=== PATIENT | male | born 1985 | race Caucasian/White ===

== ENCOUNTER 2024-01-31 09:45 | Outpatient (REF) | payer OTHER, SELFPAY ==
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
--- OUTSIDE RECORDS SUMMARY | 2024-02-02 14:08 | XMS_ITS ---
Author Name [facility] [place] Organization [facility] [place] [facility] [place] Address [address] [place] [id number] Care Team Providers Care Liner Worker Name Role Phone ROSANNA SANTILLAN Primary Care [...] PRESCRIPT ION RX Apr 20, 2022 THPRX [id number] EVA VARGAS PATIENT [facility] Aguayo Apr 20, 2022 [id number] [phone] EVA VARGAS PATIENT Selected Encounter This section includes the information on record at [place] for the Encounter. Date/Time Encounter Type Encounter Description Reason Provider Source Apr 21, 2023 10:08 AM Outpatient Encounter TELEPHONE TRIAGE SUMI SHIELDS Encounter Template Text not used by VA Plan of Treatment: Future Appointments (+ 6 months) and Future Tests (+/- 45 days) The Plan of Treatment section includes future care activities for the patient from all VA treatmentfacilities. This section includes future appointments and future orders which are active, pending or scheduled. Future Appointments This section includes appointments that were scheduled to occur 6 months from the date of the Encounter, up to a maximum of 20 appointments. The data comes from all [facility]. Appointment Date/Time Appointment Type Appointme nt Facility Name May 07, 2023 09:30 AM AMBULATORY - MEDICINE [facility] Jun 01, 2023 02:30 PM AMBULATORY - PSYCHIATRY [facility] Jul 27, 2023 03:30 PM AMBULATORY - PSYCHIATRY [facility] Active, Pending, and Scheduled Orders This section includes a listing of several types of active, pending, and scheduled orders, including clinic medications orders, diagnostic test orders, procedure orders and consult orders; where the start date of the order is 45 days before the date of the Encounter or 45 days after the date of theEncounter. The data comes from all [facility]. Test Date/Time Test Type Test Details Facility Name May 07, 2023 12:00 AM Laboratory - Chemi stry Order BASIC METABOLIC PANEL (fasting) BLOOD (SST-SERUM) [facility] May 07, 2023 12:00 AM Laboratory - Chemi stry Order LIPID PANEL FASTING BLOOD (SST-SERUM) [facility] May 07, 2023 12:00 AM Laboratory - Chemi stry Order LIVER FUNCTION BLOOD (SST-SERUM) [facility] May 07, 2023 12:00 AM Laboratory - Chemi stry Order CBC AND DIFF (AUTO) BLOOD (LAV-BLOOD) [facility] May 07, 2023 12:00 AM Laboratory - Chemi stry Order HEMOGLOBIN A1C PANEL BLOOD (LAV-BLOOD) [facility] May 07, 2023 12:00 AM Laboratory - Chemi stry Order TSH BLOOD (SST-SERUM) [facility] Jun 01, 2023 12:00 AM Laboratory - Chemi stry Order DRUGS OF ABUSE URINE (DRUG) [facility] Encounter Notes: All associated encounter notes This section contains the clinical notes associated to the Encounter. Date/Time Encounter Note(s) Provider Source Apr 21, 2023 10:08 AM RN PROGRESS NOTE: LOCAL TITLE: CCC: CLINICAL TRIAGE STANDARD TITLE: RN PROGRESS NOTE DATE OF NOTE: APR 21, 2023@10:08:16 ENTRY DATE: APR 21, 2023@10:08:16 AUTHOR: SUMI SHIELDS COSIGNER: URGENCY: STATUS: COMPLETED Patient Demographics Patient Name: EVA VARGAS Patient Primary Address: [address] [place] [id number] Patient Primary Phone: [phone] Patient : 1985 Patient Age: 37 Caller/Recipient Relation to Patient: Self Emergency Contact: ERROL VARGAS Triage Summary Conducted triage/discussed symptoms Pain Score: 0 (No Pain) Utilized the Triage Tool: Yes Chief Complaint: Foreign Body In Eye System WHEN: Within 24 Hours Nurse's Recommendation / WHEN: Within 24 Hours System WHERE: Clinic Nurse's Recommendation / WHERE: Clinic/[facility] Patient Disposition Patient/Caregiver agrees to plan of care: Yes Patient WHERE: Appointment Patient WHEN: Within 24 hours Nursing Plan and Disposition Referred Patient for In-Person Appt Other course(s) of action Other Other Description: Warm transferred to eye clinic Generated msg to PACT/Provider Provided guidance for worsening symptoms: *Caller/Patient* advised to call facilities [place] Clinical Contact Center or seek immediate medical attention for new or worsening symptoms Nurse Summary Nurse Summary: Received call from . explains he has noticed over the past 6 months he has developed a foreign body form in his right eye. Describes the foreign body as what looks like ''a tiny clear plastic bead'' that is the size of a pin head. Explains he has had 2 form over the last 6 months and is usually able to pull his lower eye lid down to remove it. Over the past 4-5 days, he has 2 that are under his upper eye lid that he feels and states they are mildly irritating and he can't seem to get them out. Denies pain or itching. Denies vision changes, eye redness or drainage or any other sx. [place] usually sees a civilian eye doctor but [place] is requesting to see the eye clinic at the [place]. See ROS. Directed to seek care within 24 hours. [facility] precautions provided. Warm transferred to [place] eye clinic for assistance. Information forwarded to PACT for review and follow up. Clinical Contact Center Codes Clinic/Location: V1 CWM PHONE CCC RN TXCC Triage Complete Triage Note: Phone Triage 21 Apr 2023 14:48:38 +0000 [facility] Demographics 37 y/o Male Results CC: Foreign Body In Eye Software suggested: Within 24 Hours Software suggested follow-up location: Clinic, consider [facility] care Values and Measures Duration of CC: 5 Days Positive Responses HPI: foreign body sensation, eye Negative Responses Denies: HPI: anisocoria, traumatic mydriasis Denies: HPI: blurry vision, injured eye Denies: HPI: burn, eye Denies: HPI: diplopia Denies: HPI: discoloration of iris, hyphema Denies: HPI: exophthalmos Denies: HPI: eye bleeding Denies: HPI: eye chemical splash Denies: HPI: eye pain, moderate to severe Denies: HPI: eye pain, severe, in injured eye Denies: HPI: eye pain, worsening Denies: HPI: eyelid wound, skin penetration Denies: HPI: hyphema by history Denies: HPI: irregular pupil Denies: HPI: power tool injury Denies: HPI: vision loss, after the injury Denies: HPI: wound, bullet, pellet or BB Denies: HPI: wound, globe penetration /renita/ SUMI SHIELDS RN Signed: 04/21/2023 10:08 Receipt Acknowledged By: 04/22/2023 13:41 /renita/ BRIGIDA SORENSON RN REGISTERED NURSE 04/23/2023 09:02 /renita/ MITRA SHAH LPN, [facility]
--- OUTSIDE RECORDS SUMMARY | 2024-02-02 14:08 | XMS_ITS | Encounter Summary ---
Author Name [facility] [place] Organization [place] Address [address] [place] [id number] Care Team Providers Care Formal Waiter/Waitress Name Role Phone ROSANNA SANTILLAN Primary Care [...] PRESCRIPT ION RX Apr 20, 2022 THPRX [id number] EVA VARGAS PATIENT FAMILY HE[employer] PLAN KVNG BROWNLEE GAMA Aguayo Apr 20, 2022 [id number] EVA VARGAS PATIENT Selected Encounter This section includes the information on record at [place] for the Encounter. Date/Time Encounter Type Encounter Description Reason Provider Source Mar 30, 2023 02:30 PM OFFICE O/P EST LOW 20 MIN [facility] - IND ICD-10-CM F43.10 Post-traumatic stress disorder, unspecified MONROE ROYAL IHDede Encounter Template Text not used by [facility] Assessments - Encounter Diagnoses This section includes the primary and secondary diagnoses documented for the Encounter. Date/Time Primary/Secondary Diagnosis Diagnosis Name Provider Source Mar 30, 2023 02:57 PM PRIMARY Post-traumatic stress disorder, unspecified ROYALMONROE ANN [place] Plan of Treatment: Future Appointments (+ 6 months) and Future Tests (+/- 45 days) The Plan of Treatment section includes future care activities for the patient from all [place] [facility]. This section includes future appointments and future orders which are active, pending or scheduled. Future Appointments This section includes appointments that were scheduled to occur 6 months from the date of the Encounter, up to a maximum of 20 appointments. The data comes from all [facility] facilities. Appointment Date/Time Appointment Type Appointme nt Facility Name Apr 21, 2023 02:30 PM AMBULATORY [place]ICINE [place] C N[facility]L [facility] May 07, 2023 09:30 AM AMBULATORY - MEDICINE [facility] Jun 01, 2023 02:30 PM AMBULATORY - PSYCHIATRY [facility] Jul 27, 2023 03:30 PM AMBULATORY - PSYCHIATRY [facility] Active, Pending, and Scheduled Orders This section includes a listing of several types of active, pending, and scheduled orders, including clinic medications orders, diagnostic test orders, procedure orders and consult orders; where the start date of the order is 45 days before the date of the Encounter or 45 days after the date of theEncounter. The data comes from all [facility]. Test Date/Time Test Type Test Details Facility Name May 07, 2023 12:00 AM Laboratory - Chemi stry Order BASIC METABOLIC PANEL (fasting) BLOOD (SST-SERUM) [facility] May 07, 2023 12:00 AM Laboratory - Chemi stry Order LIPID PANEL FASTING BLOOD (SST-SERUM) [facility] May 07, 2023 12:00 AM Laboratory - Chemi stry Order LIVER FUNCTION BLOOD (SST-SERUM) [facility] May 07, 2023 12:00 AM Laboratory - Chemi stry Order CBC AND DIFF (AUTO) BLOOD (LAV-BLOOD) [facility] May 07, 2023 12:00 AM Laboratory - Chemi stry Order HEMOGLOBIN A1C PANEL BLOOD (LAV-BLOOD) [facility] May 07, 2023 12:00 AM Laboratory - Chemi stry Order TSH BLOOD (SST-SERUM) [facility] Social History: Smoking Status (Most current) and Tobacco Use (All prior to encounter date) This section includes the most current, and the historical, smoking and tobacco- related health factors from the [place] facility where the Encounter took place. Current Smoking Status This section includes the most current smoking, or tobacco-related health factor, from the [place] facility where the Encounter took place. Date/Time Current Smoking Status Comment Stanislaw fox Sep 03, 2022 08:30 AM VA-TOBACCO NEVER USED [place] Encounter Notes: All associated encounter notes This section contains the clinical notes associated to the Encounter. Date/Time Encounter Note(s) Provider Source Mar 30, 2023 02:49 PM CLINICAL NURSE SPE CIALIST NOTE: LOCAL TITLE: CLINICAL NURSE SPECIALIST/MENTAL HEALTH STANDARD TITLE: CLINICAL NURSE SPECIALIST NOTE DATE OF NOTE: MAR 30, 2023@14:49 ENTRY DATE: MAR 30, 2023@14:49:21 AUTHOR: MONROE ROYAL EXP COSIGNER: URGENCY: STATUS: COMPLETED Dx PTSD , TBI medication management He has been receiving antidepressants from community pcp- Currently taking Venlafaxine 150mg SA daily with fair response for depression- experienced sexual side effects at higher doses, Had trials of Sertraline , Bupropion, Trazodone for sleep and Hydroxyzine. PTSD sleep disturbance is reported Active Outpatient Medications (including Supplies): Active Non-VA Medications Status = 1) Non-VA HYDROXYZINE HCL 25MG TAB 100MG BY MOUTH AT ACTIVE BEDTIME 2) Non-VA TADALAFIL (2ND LINE PDE-5 INH)*PA-F* TAB BY ACTIVE MOUTH 3) Non-VA TOPIRAMATE 50MG TAB 50MG BY MOUTH ONCE DAILY ACTIVE 4) Non-VA VENLAFAXINE HCL 150MG 24HR SA CAP 150MG BY ACTIVE MOUTH ONCE DAILY Relevant mental status exam or other objective findings: Relevant mental status exam or other objective findings: Appearance: - good self-care- well groomed ,tattoos Thought process- goal directed Speech : normal rate and tone No a/v hallucination/ delusions. Judgement and insight -intact Orientation- x 3 Associations intact Recent and remote memory- intact Attention and concentration- good Language- intact Good fund of knowledge Mood improved since last visit.- No S/I PTSD symptoms: hypervigilance, revisiting memories, social withdrawal, sleep disturbance- minimal in good control Assessment: Has completed [employer] in [place]- He states that he enjoys school but not the travel Mood improved some - no hx of S/I or H/I He is followed by [facility] for counseling - marriage is stable. he reports nightmares that are chronic - has tried Prazosin but lowered bp Labs/Radiology/Tests/Consultation _ none ordered __ obtained: labs not available in community Will add UDS (include response to medications, any medication side effects) Plan: Discussed reducing Venlafaxine to 75 mg SA ( may help with ED) continue Bupropion 300mg SA daily- he states that it did help and did help with some of the sexual side effects. Continue Mirtazapine 7.5 mg at hs for sleep -takes prn He will monitor for mood. Rt 8 weeks The rationale for the psychiatric medications and the alternatives to treatment were discussed with the patient. The side effect profile of the psychiatric medications was reviewed with the patient. Patient demonstrated reasonable understanding of the medication side effects and the above issues. The benefits of psychiatric medications outweigh risks for this patient. I asked the patient call [phone] [place] or to come to open access if needed Medication Reconciliation: Outpatient: Has the patient been taking medications as documented in the EMLR? YES: The patient has been taking medications as documented in the EMLR. Essential Medication List for Review used to complete this medication reconciliation. INCLUDED IN THIS LIST: Alphabetical list of active outpatient prescriptions dispensed from this [place] (local) and dispensed from another [place] or [place] facility (remote) as well as [...] whether with a VA or non-VA provider. /renita/ Monroe Royal APRN, STAFF CLINICAL NURSE SPECIALIST Signed: 03/30/2023 14:58 MONROE ROYAL
--- OUTSIDE RECORDS SUMMARY | 2024-02-02 14:08 | XMS_ITS ---
Author Name [place] Organization [place] Address [address] [place] [address] Care Team Providers Care Manager Port Name Role Phone ROSANNA SANTILLAN Primary Care [...] PRESCRIPT ION RX Apr 20, 2022 THPRX [id number] NAIN RESENDEZ PATIENT FAM[employer] PLAN TORI Aguayo Apr 20, 2022 [id number] [phone] NAIN RESENDEZ PATIENT Selected Encounter This section includes the information on record at [place] for the Encounter. Date/Time Encounter Type Encounter Description Reason Pro vider Source Feb 09, 2023 09:15 AM Outpatient Encounter POLYTRAUMA/TBI IND IHE Encounter Template Text not used by VA [...] 20 appointments. The data comes from all [facility]. Appointment Date/Time Appointment Type Appointme nt Facility Name Mar 30, 2023 02:30 PM AMBULATORY - PSYCHIATRY [facility] Apr 21, 2023 02:30 PM AMBULATORY - MEDICINE [place] C NTRL W[facility] May 07, 2023 09:30 AM AMBULATORY - MEDICINE [facility] Jun 01, 2023 02:30 PM AMBULATORY - PSYCHIATRY [facility] Jul 27, 2023 03:30 PM AMBULATORY - PSYCHIATRY [facility] Active, Pending, and Scheduled Orders This section includes a listing of several types of active, pending, and scheduled orders, including clinic medications orders, diagnostic test orders, procedure orders and consult orders; where the start date of the order is 45 days before the date of the Encounter or 45 days after the date of theEncounter. The data comes from all [facility]. Test Date/Time Test Type Test Details Facility Name Jan 25, 2023 12:00 AM Laboratory - Chemi stry Order CBC AND DIFF (AUTO) BLOOD (LAV-BLOOD) [facility] Jan 25, 2023 12:00 AM Laboratory - Chemi stry Order HEMOGLOBIN A1C PANEL BLOOD (LAV-BLOOD) [facility] Jan 25, 2023 12:00 AM Laboratory - Chemi stry Order TSH BLOOD (SST-SERUM) [facility] Jan 25, 2023 12:00 AM Laboratory - Chemi stry Order BASIC METABOLIC PANEL (fasting) BLOOD (SST-SERUM) [facility] Jan 25, 2023 12:00 AM Laboratory - Chemi stry Order LIPID PANEL FASTING BLOOD (SST-SERUM) [facility] Jan 25, 2023 12:00 AM Laboratory - Chemi stry Order LIVER FUNCTION BLOOD (SST-SERUM) [facility] Encounter Notes: All associated encounter notes This section contains the clinical notes associated to the Encounter. Date/Time Encounter Note(s) Provider Source Feb 09, 2023 09:15 AM LETTERS: LOCAL TITLE: PATIENT LETTER (B) STANDARD TITLE: LETTERS DATE OF NOTE: FEB 09, 2023@09:15 ENTRY DATE: FEB 09, 2023@09:15:08 AUTHOR: JACQUELINE HOOKER EXP COSIGNER: URGENCY: STATUS: COMPLETED completed TBI evaluation on 10/01/22. At the time of the evaluation he was not ready to engage in further treatment at the time. The following outreach letter will be sent to . He is encouraged to contact the clinic if he wishes to engage. February 09, 2023 Mr. Nain Resendez [address] [place] [address] Dear Mr. Resendez, I am contacting you on behalf of the TBI/Polytrauma Clinic at the [facility]. After your evaluation with the TBI clinic on 10/01/22 there were several recommendations that were mentioned could be placed if/when you may be ready to engage. We want to be sure you are receiving all the care we can provide through the TBI/Polytrauma Clinic and encourage you to call us if you would like to engage in treatment at this time. Please feel free to call me @ [phone] or Mayela Christianson TBI Coordinator @ [phone] We look forward to hearing from you and providing your care and support. Thank you for your service to our country. Sincerely, Jacqueline Hooker RN TBI/Polytrauma Nurse Weigher Bulker [phone] [facility]INE HOOKER [facility]
--- OUTSIDE RECORDS SUMMARY | 2024-02-02 14:08 | XMS_ITS | Encounter Summary ---
Author Name [facility] [place] [facility] Address [address] [place] [address] Care Team Providers Care Rotary Derrick Operator Name Role Phone ROSANNA SANTILLAN Primary Care [...] PRESCRIPT ION RX Apr 20, 2022 THPRX [id number] [phone] EVA VARGAS PATIENT FAM[employer] PLAN TORI Aguayo Apr 20, 2022 [facility] [id number] [phone] EVA VARGAS PATIENT Selected Encounter This section includes the information on record at [place] for the Encounter. Date/Time Encounter Type Encounter Description Reason Pro vider Source May 04, 2023 11:27 AM Outpatient Encounter PRIMARY CARE/MEDICINE IHE Encounter Template Text not used by [place] Plan of Treatment: Future Appointments (+ 6 [...] data comes from all [facility]. Appointment Date/Time Appointment Type Appointme nt Facility Name May 07, 2023 09:30 AM AMBULATORY - MEDICINE [facility] Jun 01, 2023 02:30 PM AMBULATORY - PSYCHIATRY [facility] Jul 27, 2023 03:30 PM AMBULATORY - PSYCHIATRY [facility] Oct 26, 2023 08:30 AM AMBULATORY - PSYCHIATRY [facility] Active, Pending, and Scheduled Orders [...] data comes from all [facility]. Test Date/Time Test Type Test Details Facility Name May 07, 2023 12:00 AM Laboratory - Chemi stry Order BASIC METABOLIC PANEL (fasting) BLOOD (SST-SERUM) [facility] May 07, 2023 12:00 AM Laboratory - Chemi stry Order LIPID PANEL FASTING BLOOD (SST-SERUM) [facility] May 07, 2023 12:00 AM Laboratory - Chemi stry Order LIVER FUNCTION BLOOD (SST-SERUM) [facility] May 07, 2023 12:00 AM Laboratory - Chemi stry Order CBC AND DIFF (AUTO) BLOOD (LAV-BLOOD) [facility] May 07, 2023 12:00 AM Laboratory - Chemi stry Order HEMOGLOBIN A1C PANEL BLOOD (LAV-BLOOD) [facility] May 07, 2023 12:00 AM Laboratory - Chemi stry Order TSH BLOOD (SST-SERUM) [facility] Jun 01, 2023 12:00 AM Laboratory - Chemi stry Order DRUGS OF ABUSE URINE (DRUG) [facility] Encounter Notes: All associated encounter notes This section contains the clinical notes associated to the Encounter. Date/Time Encounter Note(s) Provider Source May 06, 2023 11:33 AM ADDENDUM: LOCAL TITLE: Addendum STANDARD TITLE: ADDENDUM DATE OF NOTE: MAY 06, 2023@11:33:11 ENTRY DATE: MAY 06, 2023@11:33:11 AUTHOR: BRIGIDA SORENSON COSIGNER: URGENCY: STATUS: COMPLETED [facility] Please contact to assist with scheduling focused PCP visit. /antonia SORENSON RN REGISTERED NURSE Signed: 05/06/2023 11:35 Receipt Acknowledged By: 05/06/2023 13:03 /antonia LOPES --- Original Document --- 05/04/23 PRIMARY CARE SECURE MESSAGING: ------Original Message ----- Sent: 05/04/2023 09:22 AM ET From: EVA VARGAS To: Sandi SANTILLAN_[facility] Subject: Appointment:ED I've tried for days to get a hold of someone at the clinic to schedule an appointment with you for my ED. No one has answered or returned my calls. I've been without my meds for months and it's really affecting me. Please do something about this! /antonia LOPES Signed: 05/04/2023 12:27 Receipt Acknowledged By: 05/06/2023 11:37 /antonia SORENSON RN REGISTERED NURSE * AWAITING SIGNATURE * ANDREA CARBONE 05/06/2023 ADDENDUM STATUS: UNSIGNED You may not VIEW this UNSIGNED Addendum. BRIGIDA SORENSON CNTRL [facility] May 04, 2023 11:27 AM PRIMARY CARE SECUR E MESSAGING: LOCAL TITLE: PRIMARY CARE SECURE MESSAGING STANDARD TITLE: PRIMARY CARE SECURE MESSAGING DATE OF NOTE: MAY 04, 2023@11:27 ENTRY DATE: MAY 04, 2023@12:27:43 AUTHOR: LAINEY CARPENTER EXP COSIGNER: URGENCY: STATUS: COMPLETED PRIMARY CARE SECURE MESSAGING Has ADDENDA ------Original Message ----- Sent: 05/04/2023 09:22 AM ET From: EVA VARGAS To: JACQUE,O_[facility] Subject: Appointment:ED I've tried for days to get a hold of someone at the clinic to schedule an appointment with you for my ED. No one has answered or returned my calls. I've been without my meds for months and it's really affecting me. Please do something about this! /antonia LOPES Signed: 05/04/2023 12:27 Receipt Acknowledged By: 05/06/2023 11:37 /antonia SORENSON RN REGISTERED NURSE 05/10/2023 12:04 /renita/ ANDREA CARBONE LPN LPN 05/06/2023 ADDENDUM STATUS: COMPLETED [facility] Please contact to assist with scheduling focused PCP visit. 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 /antonia LOPES Signed: 05/06/2023 13:04 LAINEY CARPENTER CNTRPiero MANZO
--- OUTSIDE RECORDS SUMMARY | 2024-02-02 14:08 | XMS_ITS | Encounter Summary ---
Author Name [facility] [place] Organization [place] Address [address] [place] [id number] Care Team Providers Care Jewel Inspector Name Role Phone ROSANNA SANTILLAN Primary Care [...] PRESCRIPT ION RX Apr 20, 2022 THPRX [id number] [phone] ALICIA EVA PATIENT FAMILY HE[employer] PLAN BRKANDY Aguayo Apr 20, 2022 [id number] [phone] EVA VARGAS PATIENT Selected Encounter This section includes the information on record at [place] for the Encounter. 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 Date/Time Primary/Secondary Diagnosis Diagnosis Name Provider Source Apr 21, 2023 03:10 PM PRIMARY Conjunctival concretions, bilateral SUEDICK Gerardo [place] [facility] Plan of Treatment: Future Appointments (+ 6 months) and Future Tests (+/- 45 days) The Plan of Treatment section includes future care activities for the patient from all [place] [facility]. This section includes future appointments and future orders which are active, pending or scheduled. Future Appointments This section includes appointments that were scheduled to occur 6 months from the date of the Encounter, up to a maximum of 20 appointments. The data comes from all [facility]. Appointment Date/Time Appointment Type Appointme nt Facility Name May 07, 2023 09:30 AM AMBULATORY - MEDICINE [facility] Jun 01, 2023 02:30 PM AMBULATORY - PSYCHIATRY [facility] Jul 27, 2023 03:30 PM AMBULATORY - PSYCHIATRY [facility] Active, Pending, and Scheduled Orders This section includes a listing of several types of active, pending, and scheduled orders, including clinic medications orders, diagnostic test orders, procedure orders and consult orders; where the start date of the order is 45 days before the date of the Encounter or 45 days after the date of theEncounter. The data comes from all [facility]. Test Date/Time Test Type Test Details Facility Name May 07, 2023 12:00 AM Laboratory - Chemi stry Order BASIC METABOLIC PANEL (fasting) BLOOD (SST-SERUM) [facility] May 07, 2023 12:00 AM Laboratory - Chemi stry Order LIPID PANEL FASTING BLOOD (SST-SERUM) [facility] May 07, 2023 12:00 AM Laboratory - Chemi stry Order LIVER FUNCTION BLOOD (SST-SERUM) [facility] May 07, 2023 12:00 AM Laboratory - Chemi stry Order CBC AND DIFF (AUTO) BLOOD (LAV-BLOOD) [facility] May 07, 2023 12:00 AM Laboratory - Chemi stry Order HEMOGLOBIN A1C PANEL BLOOD (LAV-BLOOD) [facility] May 07, 2023 12:00 AM Laboratory - Chemi stry Order TSH BLOOD (SST-SERUM) [facility] Jun 01, 2023 12:00 AM Laboratory - Chemi stry Order DRUGS OF ABUSE URINE (DRUG) [facility] Encounter Notes: All associated encounter notes This section contains the clinical notes associated to the Encounter. Date/Time Encounter Note(s) Provider Source Apr 21, 2023 02:11 PM OPTOMETRY NOTE: LOCAL TITLE: OPTOMETRY NOTE(T) STANDARD TITLE: OPTOMETRY NOTE DATE OF NOTE: APR 21, 2023@14:11 ENTRY DATE: APR 21, 2023@14:11:07 AUTHOR: SOUTH [place]ATES COSIGNER: URGENCY: STATUS: COMPLETED Active Problems: Active Problem Sleep apnea G47.30 11/09/2022 CARROL BLACKWELL Posttraumatic stress disorder F43.1 11/09/2022 CARROL BLACKWELL History of SARS-CoV-2 Z86.16 11/09/2022 CARROL BLACKWELL Depression F32.A 11/09/2022 CARROL BLACKWELL Generalized anxiety disorder F41.1 11/09/2022 CARROL BLACKWELL Tinnitus H93.19 11/09/2022 CARROL BLACKWELL Erectile dysfunction N52.9 11/09/2022 CARROL BLACKWELL Traumatic brain injury Z87.820 12/10/2022 CARLOS BAJWA Pituitary microadenoma D35.2 11/09/2022 CARROL BLACKWELL Medications ([facility]): Active Outpatient Medications (including Supplies): Active Outpatient Medications Status 1) BUPROPION HCL [...] CAP 150MG BY ACTIVE MOUTH ONCE DAILY 7 Total Medications Allergies: Patient has answered NKA S: 37-year-old male is in with a complaint of white bumps on the underside of his upper eyelids that come and go over the past several months. He wears glasses on a regular basis and his last eye examination was March 18, [address] Hernandez in [place]. He did not think to mention this condition to her at his exam. They do irritate in sometimes. He does not use lubricating eyedrops. NATANAEL: 03/18/2023 Dr. Hernandez O: Visual acuity with current correction was 20/20 both eyes. Pupils were equal and round and reactive to light with no afferent defect. Extraocular muscles were intact and facial confrontation steiner were full. Concretions x3 were seen right upper lid eyelid and 1 temporally left upper eyelid and lashes were clear both eyes. Corneas and conjunctiva were clear both eyes. Anterior chambers were deep clear and quiet with open angles. Iris was flat both eyes. Lenses were clear. Intraocular pressures were deferred. Funduscopic was deferred. A: Concretions of the upper eyelids OU. P: Recommended Systane complete to be used 4 times a day each eye for 2 to 4 weeks and then reassess eyelids at that time. Also recommended warm moisture compresses that he can purchase at any drugstore. Patient will return as needed in the future. He will continue care with Dr. Hernandez in the community. /renita/ SOUTH GATES OD STAFF WEB PRODUCER Signed: 04/21/2023 15:10 SOUTH GATES CNTRL [facility]
--- OUTSIDE RECORDS SUMMARY | 2024-02-02 14:08 | XMS_ITS ---
Author Name Department of [facility] ([place]) Organization Department of [facility] ([place]) Address [address] [place] [address] Care Team Providers Care Elevator Operator Service Name Role Phone ROSANNA SANTILLAN Primary Care [...] Member ID Insurance Provider's Telephone Number Policy U[place]'s Name Patient's Relationship to Policy [place] OPTUM RX PRESCRIPT ION RX Apr 20, 2022 THPRX [id number] EVA VARGAS PATIENT FAMILY HEALTH PLAN TORI Aguayo Apr 20, 2022 [facility] [id number] 05 EVA VARGAS PATIENT Selected Encounter This section includes the information on record at [place] for the Encounter. Date/Time Encounter Type Encounter Description Reason Pro vider Source Feb 08, 2023 07:46 AM Outpatient Encounter PRIMARY CARE/MEDICINE IHE Encounter Template Text not used by [place] Plan of Treatment: Future Appointments (+ 6 [...] 20 appointments. The data comes from all [facility]. Appointment Date/Time Appointment Type Appointme nt Facility Name Mar 30, 2023 02:30 PM AMBULATORY - PSYCHIATRY [facility] Apr 21, 2023 02:30 PM AM[place]ULATORY - [place]ICINE [place] [facility] May 07, 2023 09:30 AM AMBULATORY - MEDICINE [facility] Jun 01, 2023 02:30 PM AMBULATORY - PSYCHIATRY [facility] Jul 27, 2023 03:30 PM AMBULATORY - PSYCHIATRY [facility] Active, Pending, and Scheduled Orders This section includes a listing of several types of active, pending, and scheduled orders, including clinic medications orders, diagnostic test orders, procedure orders and consult orders; where the start date of the order is 45 days before the date of the Encounter or 45 days after the date of theEncounter. The data comes from all [facility]. Test Date/Time Test Type Test Details Facility Name Jan 25, 2023 12:00 AM Laboratory - Chemi stry Order CBC AND DIFF (AUTO) BLOOD (LAV-BLOOD) [facility] Jan 25, 2023 12:00 AM Laboratory - Chemi stry Order HEMOGLOBIN A1C PANEL BLOOD (LAV-BLOOD) [facility] Jan 25, 2023 12:00 AM Laboratory - Chemi stry Order TSH BLOOD (SST-SERUM) [facility] Jan 25, 2023 12:00 AM Laboratory - Chemi stry Order BASIC METABOLIC PANEL (fasting) BLOOD (SST-SERUM) [facility] Jan 25, 2023 12:00 AM Laboratory - Chemi stry Order LIPID PANEL FASTING BLOOD (SST-SERUM) [facility] Jan 25, 2023 12:00 AM Laboratory - Chemi stry Order LIVER FUNCTION BLOOD (SST-SERUM) [facility] Encounter Notes: All associated encounter notes This section contains the clinical notes associated to the Encounter. Date/Time Encounter Note(s) Provider Source Feb 08, 2023 07:46 AM PRIMARY CARE SECUR E MESSAGING: LOCAL TITLE: PRIMARY CARE SECURE MESSAGING STANDARD TITLE: PRIMARY CARE SECURE MESSAGING DATE OF NOTE: FEB 08, 2023@07:46 ENTRY DATE: FEB 08, 2023@07:46:13 AUTHOR: LAINEY CARPENTER EXP COSIGNER: URGENCY: STATUS: COMPLETED PRIMARY CARE SECURE MESSAGING Has ADDENDA ------Original Message ----- Sent: 02/06/2023 07:12 AM ET From: EVA VARGAS To: HOLLYMEENA,O_PRIM JAMI CARE_SPOPC Subject: Medication:Refill on cialis Good morning, I was wondering if you got the message from my psych doc about needing a refill on my ED meds? I am completely out and need it filled as soon as you can please. /antonia LOPES Signed: 02/08/2023 07:46 Receipt Acknowledged By: 02/08/2023 15:58 /antonia SANTOS RN REGISTERED NURSE 02/16/2023 09:18 /renita/ ANDREA CARBONE LPN LPN 02/08/2023 ADDENDUM STATUS: COMPLETED Spoke with the 's Non-VA provider's office to obtain the last office notes and a script for the Tadalafil to be faxed in order for the provider to review and order. /antonia SANTOS RN REGISTERED NURSE Signed: 02/08/2023 15:59 03/30/2023 ADDENDUM STATUS: COMPLETED [place] [facility] that was prescribed by his outside provider. Advised that this medication is non- formulary and a form would need to be completed by the prescriber in order for the medication to be approved by the [facility]. Fax was sent to the non-VA provider office to complete the form and to fax the last office note and prescription. /antonia SANTOS RN REGISTERED NURSE Signed: 03/30/2023 15:17 LAINEY CARPENTER CNTRL [facility]
--- OUTSIDE RECORDS SUMMARY | 2024-02-02 14:08 | XMS_ITS | Encounter Summary ---
Author Name [facility] [place] [facility] [place] [facility] [place] Address [address] [place] [id number] Care Team Providers Care Manager Care Name Role Phone ROSANNA SANTILLAN Primary Care [...] PRESCRIPT ION RX Apr 20, 2022 THPRX [id number] [phone] EVA VARGAS PATIENT FAMILY HE[employer] PLAN [facility] Aguayo Apr 20, 2022 [id number] [phone] EVA VARGAS PATIENT Selected Encounter This section includes the information on record at [place] for the Encounter. Date/Time Encounter Type Encounter Description Reason Pro vider Source Apr 21, 2023 09:55 AM Outpatient Encounter OPTOMETRY IHE Encounter Template Text not used by [...] 20 appointments. The data comes from all [facility]. Appointment Date/Time Appointment Type Appointme nt Facility Name May 07, 2023 09:30 AM AMBULATORY - MEDICINE [facility] Jun 01, 2023 02:30 PM AMBULATORY - PSYCHIATRY [facility] Jul 27, 2023 03:30 PM AMBULATORY - PSYCHIATRY [facility] Active, Pending, and Scheduled Orders This section includes a listing of several types of active, pending, and scheduled orders, including clinic medications orders, diagnostic test orders, procedure orders and consult orders; where the start date of the order is 45 days before the date of the Encounter or 45 days after the date of theEncounter. The data comes from all [facility]. Test Date/Time Test Type Test Details Facility Name May 07, 2023 12:00 AM Laboratory - Chemi stry Order BASIC METABOLIC PANEL (fasting) BLOOD (SST-SERUM) [facility] May 07, 2023 12:00 AM Laboratory - Chemi stry Order LIPID PANEL FASTING BLOOD (SST-SERUM) [facility] May 07, 2023 12:00 AM Laboratory - Chemi stry Order LIVER FUNCTION BLOOD (SST-SERUM) [facility] May 07, 2023 12:00 AM Laboratory - Chemi stry Order CBC AND DIFF (AUTO) BLOOD (LAV-BLOOD) [facility] May 07, 2023 12:00 AM Laboratory - Chemi stry Order HEMOGLOBIN A1C PANEL BLOOD (LAV-BLOOD) [facility] May 07, 2023 12:00 AM Laboratory - Chemi stry Order TSH BLOOD (SST-SERUM) [facility] Jun 01, 2023 12:00 AM Laboratory - Chemi stry Order DRUGS OF ABUSE URINE (DRUG) [facility] Encounter Notes: All associated encounter notes This section contains the clinical notes associated to the Encounter. Date/Time Encounter Note(s) Provider Source Apr 21, 2023 10:30 AM ADDENDUM: LOCAL TITLE: Addendum STANDARD TITLE: ADDENDUM DATE OF NOTE: APR 21, 2023@10:30:21 ENTRY DATE: APR 21, 2023@10:30:22 AUTHOR: KAMERON TURNER COSIGNER: URGENCY: STATUS: COMPLETED Please call and schedule patient with Dr. Gates from any time today from 1 to 3:30 PM as an approved overbook per Dr. Gates who graciously agreed to see the patient. /es/ Kameron Turner OD CHIEF OF OPTOMETRY Signed: 04/21/2023 10:31 Receipt Acknowledged By: 04/21/2023 12:55 /renita/ HARRY V[place]LEGAS CODIFIER 04/21/2023 10:42 /es/ [facility] OD STAFF CORPORATE LEGAL MANAGER 04/21/2023 10:58 /es/ DK PATRICK ADVANCED CODIFIER 04/21/2023 11:45 /es/ EMETERIO MCCABE ADVANCED CODIFIER ====== --- Original Document --- 04/21/23 TELEPHONE NOTE/SPECIALTY CLINIC: Mercedes the nurse from the clinical call center transfered a call from a stating he is having issues with his right eye. stated he has clear bead like things coming from his eye. Almost like if it was a tear that had dried up. It appears to be forming under the skin of the eye lid. [place] stated there feels like there are a few stuck that havent come out. [place] has not been seen at the [place] opt before. Phone number on file has been verified. /renita/ HARRY V[place]LEGAS CODIFIER Signed: 04/21/2023 10:02 Receipt Acknowledged By: * AWAITING SIGNATURE * TATIANA CRAIG 04/21/2023 10:32 /es/ Kameron Turner OD CHIEF OF OPTOMETRY KAMERON TURNER [place] [facility] Apr 21, 2023 09:55 AM TELEPHONE LACI R NOTE: LOCAL TITLE: TELEPHONE NOTE/SPECIALTY CLINIC STANDARD TITLE: TELEPHONE ENCOUNTER NOTE DATE OF NOTE: APR 21, 2023@09:55 ENTRY DATE: APR 21, 2023@09:55:30 AUTHOR: HARRY VILLEGAS EXP COSIGNER: URGENCY: STATUS: COMPLETED TELEPHONE NOTE/SPECIALTY CLINIC Has ADDENDA Mercedes the nurse from the clinical call center transfered a call from a stating he is having issues with his right eye. stated he has clear bead like things coming from his eye. Almost like if it was a tear that had dried up. It appears to be forming under the skin of the eye lid. [place] stated there feels like there are a few stuck that havent come out. has not been seen at the [place] opt before. Phone number on file has been verified. /es/ HARRY VILLEGAS CODIFIER Signed: 04/21/2023 10:02 Receipt Acknowledged By: 04/22/2023 10:27 /es/ DENNY CRAIG SUPERVISORY CODIFIER 04/21/2023 10:32 /es/ Kameron Turner OD CHIEF OF OPTOMETRY 04/21/2023 ADDENDUM STATUS: COMPLETED Please call and schedule patient with Dr. Gates from any time today from 1 to 3:30 PM as an approved overbook per Dr. Gates who graciously agreed to see the patient. /es/ Kameron Turner OD CHIEF OF OPTOMETRY Signed: 04/21/2023 10:31 Receipt Acknowledged By: 04/21/2023 12:55 /renita/ [place] CODIFIER 04/21/2023 10:42 /es/ [facility] OD STAFF CORPORATE LEGAL MANAGER 04/21/2023 10:58 /es/ DK PATRICK ADVANCED CODIFIER 04/21/2023 11:45 /es/ EMETERIO MCCABE ADVANCED CODIFIER [place] [facility]
--- OUTSIDE RECORDS SUMMARY | 2024-02-02 14:08 | XMS_ITS | Encounter Summary ---
Author Name [facility] [place] Organization [facility] [place] Address [address] [place] [id number] Care Team Providers Care Nursing Specialist Name Role Phone ROSANNA SANTILLAN Primary Care [...] PRESCRIPT ION RX Apr 20, 2022 THPRX [id number] EVA VARGAS PATIENT FAMILY HEALTH PLAN TORI Aguayo Apr 20, 2022 [facility] [id number] 05 EVA VARGAS PATIENT Selected Encounter This section includes the information on record at [place] for the Encounter. Date/Time Encounter Type Encounter Description Reason Pro vider Source Feb 09, 2023 12:00 AM Outpatient Encounter EVENT (HISTORICAL) IHE Encounter Template Text not used by [place] Plan of Treatment: Future Appointments (+ 6 [...] 20 appointments. The data comes from all [facility]. Appointment Date/Time Appointment Type Appointme nt Facility Name Mar 30, 2023 02:30 PM AMBULATORY - PSYCHIATRY [facility] Apr 21, 2023 02:30 PM AM[place]ULATORY [place]ICINE [place] [facility] May 07, 2023 09:30 AM AMBULATORY - MEDICINE [facility] Jun 01, 2023 02:30 PM AMBULATORY - PSYCHIATRY [facility] Jul 27, 2023 03:30 PM AMBULATORY - PSYCHIATRY [facility] Active, Pending, and Scheduled Orders This section includes a listing of several types of active, pending, and scheduled orders, including clinic medications orders, diagnostic test orders, procedure orders and consult orders; where the start date of the order is 45 days before the date of the Encounter or 45 days after the date of theEncounter. The data comes from all [facility]. Test Date/Time Test Type Test Details Facility Name Jan 25, 2023 12:00 AM Laboratory - Chemi stry Order CBC AND DIFF (AUTO) BLOOD (LAV-BLOOD) [facility] Jan 25, 2023 12:00 AM Laboratory - Chemi stry Order HEMOGLOBIN A1C PANEL BLOOD (LAV-BLOOD) [facility] Jan 25, 2023 12:00 AM Laboratory - Chemi stry Order TSH BLOOD (SST-SERUM) [facility] Jan 25, 2023 12:00 AM Laboratory - Chemi stry Order BASIC METABOLIC PANEL (fasting) BLOOD (SST-SERUM) [facility] Jan 25, 2023 12:00 AM Laboratory - Chemi stry Order LIPID PANEL FASTING BLOOD (SST-SERUM) [facility] Jan 25, 2023 12:00 AM Laboratory - Chemi stry Order LIVER FUNCTION BLOOD (SST-SERUM) [facility] Encounter Notes: All associated encounter notes This section contains the clinical notes associated to the Encounter. Date/Time Encounter Note(s) Provider Source Feb 09, 2023 12:00 AM NURSING ADMINISTRATIVE NOTE: LOCAL TITLE: NON-VA PRESCRIPTION STANDARD TITLE: NURSING ADMINISTRATIVE NOTE DATE OF NOTE: FEB 09, 2023 ENTRY DATE: FEB 18, 2023@09:34:38 AUTHOR: JUDITH CULLEN MA EXP COSIGNER: URGENCY: STATUS: COMPLETED VistA Imaging - Scanned Document SCANNED DOCUMENT SIGNATURE NOT REQUIRED Electronically Filed: 02/18/2023 by: JUDITH CULLEN HEALTHCARE BUSINESS ANALYST JUDITH CULLEN EILEEN H[facility]
--- OUTSIDE RECORDS SUMMARY | 2024-02-02 14:08 | XMS_ITS ---
Author Name [facility] of [facility] ([place]) Organization [facility] [place] [facility] [place] Address [address] [place] [address] Care Team Providers Care Import/Export Clerk Name Role Phone ROSANNA SANTILLAN Primary Care [...] PRESCRIPT ION RX Apr 20, 2022 THPRX [id number] EVA VARGAS PATIENT FAMILY HEALTH PLAN TORI Aguayo Apr 20, 2022 [facility] [id number] 05 EVA VARGAS PATIENT Selected Encounter This section includes the information on record at [place] for the Encounter. Date/Time Encounter Type Encounter Description Reason Pro vider Source May 07, 2023 09:40 AM Outpatient Encounter PRIMARY CARE/MEDICINE IHE Encounter Template Text not used by [place] Plan of Treatment: Future Appointments (+ 6 [...] 20 appointments. The data comes from all [facility]. Appointment Date/Time Appointment Type Appointme nt Facility Name Jun 01, 2023 02:30 PM AMBULATORY - PSYCHIATRY [facility] Jul 27, 2023 03:30 PM AMBULATORY - PSYCHIATRY [facility] Oct 26, 2023 08:30 AM AMBULATORY - PSYCHIATRY [facility] Active, Pending, and Scheduled Orders This section includes a listing of several types of active, pending, and scheduled orders, including clinic medications orders, diagnostic test orders, procedure orders and consult orders; where the start date of the order is 45 days before the date of the Encounter or 45 days after the date of theEncounter. The data comes from all [facility]. Test Date/Time Test Type Test Details Facility Name May 07, 2023 12:00 AM Laboratory - Chemi stry Order BASIC METABOLIC PANEL (fasting) BLOOD (SST-SERUM) [facility] May 07, 2023 12:00 AM Laboratory - Chemi stry Order LIPID PANEL FASTING BLOOD (SST-SERUM) [facility] May 07, 2023 12:00 AM Laboratory - Chemi stry Order LIVER FUNCTION BLOOD (SST-SERUM) [facility] May 07, 2023 12:00 AM Laboratory - Chemi stry Order CBC AND DIFF (AUTO) BLOOD (LAV-BLOOD) [facility] May 07, 2023 12:00 AM Laboratory - Chemi stry Order HEMOGLOBIN A1C PANEL BLOOD (LAV-BLOOD) [facility] May 07, 2023 12:00 AM Laboratory - Chemi stry Order TSH BLOOD (SST-SERUM) [facility] Jun 01, 2023 12:00 AM Laboratory - Chemi stry Order DRUGS OF ABUSE URINE (DRUG) [facility] Encounter Notes: All associated encounter notes This section contains the clinical notes associated to the Encounter. Date/Time Encounter Note(s) Provider Source May 07, 2023 09:40 AM PREVENTIVE MEDICIN E NURSING NOTE: LOCAL TITLE: CLINICAL REMINDERS/NURSING STANDARD TITLE: PREVENTIVE MEDICINE NURSING NOTE DATE OF NOTE: MAY 07, 2023@09:40 ENTRY DATE: MAY 07, 2023@09:41:02 AUTHOR: SHERMAN SHARP EXP COSIGNER: URGENCY: STATUS: COMPLETED Advance Directive Screen MH AD: Patient does not have a completed advance directive on file at any facility, [place] or outside. S/he is not interested in completing one at this time. The patient received education about Advance Directives and written notification of his/her rights. Screen for Embedded Fragments: SCREEN FOR EMBEDDED FRAGMENTS The patient reports no embedded fragments. COVID-19 Immunization: Refused Moderna Monovalent COVID-19 vaccine Immunization: COVID-19 (MODERNA), MRNA, LNP-S, PF, 50 MCG/0.5 ML (AGES 12+ YEARS) Refusal Reason: PATIENT DECISION Patient refuses all immunization(s) in the COVID-19 group Date Documented: 05/07/23 09:43 RHS Screen: RHS Screen Session Format: Face to Face Environmental Check Upon inquiry, the individual reports that the environment is safe to proceed. Informed Consent to Screen and Document The individual consents to proceed with screening. The individual consents to documentation of responses. PRIMARY SCREEN: In the past 12 months, how often did a current or former intimate partner (e.g., boyfriend, girlfriend, , , sexual partner): 1. Scream or curse at you Never 2. Insult or talk down to you Never 3. Threaten you with harm Never 4. Physically hurt you Never 5. Force or pressure you to have sexual contact against your will, or when you were unable to say no Never ?? The HITS tool (items 1-4 above) is [place] copyright protected by Bill Tobias MD, and the user has full rights to use it throughout the [place] system. PRIMARY SCREEN RESULT: The Primary Screen is NEGATIVE. The individual answered never to all forms of IPV above (i.e., answered never to all 5 items) The individual accepts education and/or resources: Yes - Offered verbal universal education about IPV EDUCATION: The individual indicated readiness to learn. Education offered during this session as noted above. The individual indicated understanding by asking relevant questions and making appropriate comments. No barriers to learning were observed or identified. /renita/ YAZMIN SHARP LPN LPN Signed: 05/07/2023 09:44 YAZMIN SHARP [place]
--- OUTSIDE RECORDS SUMMARY | 2024-02-02 14:08 | XMS_ITS | Continuity of Care Document ---
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 A) [facility]) TELE CONSULT [id number] Notes Entered by: RAJAT ZHU 16 Jun 2011 1437 ------- ------- ------- ------- -- Treatme nt for STD antonyur e BHARTI TERESA 06/15 [facility](A [facility] Team A) [facility]) TELE CONSULT [id number] Notes Entered by: RAMSEY JC 26 Jun 2011 1122 ------- ------- ------- ------- -- Needs SUMI Mccollum 06/25 Advice Assessment [facility](A [facility] Team A) [facility] OUTPATIENT [id number] pre-dep kariyment BHARTI TERESA 08/20 Released w/o Limitations [facility](A [facility] Team [facility]) [facility] Medicine [facility]) TELE CONSULT [id number] Notes Entered by: DELLA FLORES 05 Oct 2011 1044 ------- ------- ------- ------- -- [facility] LUISITO FLORES 10/04 [facility] Medicin e [facility]) [facility] Facility OUTPATIENT [id number] Theater Provider 12/14 Released w/o Limitations [facility] OUTPATIENT [id number] Theater Provider 03/07 Sick at Home/Quarter s [facility] OUTPATIENT [id number] Theater Provider 04/30 Released w/o Limitations Theater Facilit y [facility] OUTPATIENT [id number] Notes Entered by: CHITO ALBERTO 16 Jun 2012 1257 ------- ------- ------- ------- -- ANNUAL PHA CHITO ALBERTO 06/16 Released w/o Limitations [facility](A [facility] Team A) [facility]) OUTPATIENT [id number] [address]aux 08/22 Released w/o Limitations [facility](A [facility] Team A) [facility]) TELE CONSULT [id number] Notes Entered by: RAMSEY JC 08 Sep 2012 1255 ------- ------- ------- ------- -- Medicat ion consult ROHAN VELASCO 09/08 Referred for Appointment [facility](A [facility] Team A) [facility]) TELE CONSULT [id number] Notes Entered by: RAMSEY JC 27 Sep 2012 1236 ------- ------- ------- ------- -- Med refill ARSEN JOSEPH 09/27 Medication Refill Forwarded [facility](A [facility] Team A) [facility]) OUTPATIENT [id number] request iveth camacho for vasecto BHARTI Bragg 11/14 Released w/o Limitations [facility](A [facility] Team [facility]) [facility] t [place]) TELE CONSULT [id number] Notes Entered by: Elsy WU 29 Nov 2012 1631 ------- ------- ------- ------- -- NETWORK RESULTS 11/28/12 UROLOGY BHARTI TERESA 11/29 [facility] [place]) [facility]) TELE CONSULT [id number] Notes Entered by: ARSEN JOSEPH 13 Feb 2013 1032 ------- ------- ------- ------- -- Medicat ion refill ARSEN JOSEPH 02/13 Referred for Appointment [facility](A [facility] Team A) [facility]) OUTPATIENT [id number] Medicat ion refill, Sleep aid TEE NICE 02/14 Released w/o Limitations [facility](A [facility] Team [facility]) [facility](Opt ometry) OUTPATIENT [id number] eye exam GERBER LUNDBERG 05/23 Released w/o Limitations [facility](O ptometr y) [facility]) OUTPATIENT [id number] Notes Entered by: VICTORIA TRIPP 29 Jun 2013 1322 ------- ------- ------- ------- -- ANNUAL PHA RONY MARTÍNEZ 06/29 Released w/o Limitations [facility]) [facility]) OUTPATIENT [id number] ALAN RICHARDSON 07/11 Released w/o Limitations [employer](A [facility] Team [facility]) [facility]) OUTPATIENT [id number] lower back pain QUINTEN MONTENEGRO 12/07 Released w/o Limitations [facility](A [facility] Team [facility]) [facility]) OUTPATIENT [id number] back pain TEE NICE 12/19 Released with Work/Duty Limitations [facility](A [facility] Team [facility]) [facility]) OUTPATIENT [id number] pain in lower in back going down legs TEE NICE 01/09 Released with Work/Duty Limitations [facility](A [facility] Team [facility]) [facility]) TELE CONSULT [id number] Notes Entered by: IFTIKHAR TYSON 11 Jan 2014 0846 ------- ------- ------- ------- -- Normal L/S DB Cain 01/11 Referred for Appointment [employer] [employer](Alt us [facility] Team [facility]) OUTPATIENT [id number] [facility] QUINTEN Perez 01/22 Released w/o Limitations [employer] [employer](Alt us [facility] Team A) TELE CONSULT [id number] Notes Entered by: RIMA ARBOLEDA 30 Mar 2014 1316 ------- ------- ------- ------- -- NETWORK RESULTS [facility] PT/[facility]25 LOOK IN A7I TEE NICE 03/30 [employer] [employer]([facility] Team A) TELE CONSULT [id number] Notes Entered by: JUAN GIRON 17 May 2017 1016 ------- ------- ------- ------- -- Con Lv Request STACEY ROSAS 05/17 Referred for Appointment [employer] [employer]([facility] Team [facility]) TELE CONSULT [id number] Notes Entered by: ALLAN ROSAS 27 May 2017 1037 ------- ------- ------- ------- -- Con Leave Request MARICEL MENDIETA 05/27 [employer] [employer]([facility] Team [facility]) TELE CONSULT [id number] Notes Entered by: GRISELDA DALEY 24 Apr 2020 1114 ------- ------- ------- ------- -- Con Leave BRITTANIE SORENSON 04/24 Other Not Elsewhere Classified [facility] Team A) [address] [place] [address](Cash baumann [facility] Team A) TELE CONSULT [id number] Notes Entered by: MAYDA XAVIER 14 Oct 2020929 ------- ------- ------- ------- -- Other - Med Board IRENE Urbina 10/14 Other Not Elsewhere Classified [address] [place] [address]([facility] Team [facility]) [facility] OUTPATIENT [id number] FAILED TEST/WE KOFI FRANCO 02/12 Released w/o Limitations [facility]( [facility]) [address] [place] [address](Luis E kramer [facility]) TELE CONSULT [id number] Notes Entered by: Elsy CHANG 15 Oct [id number] ------- ------- ------- ------- -- ADAPT Initial Labs TREASURE MCINTYRE 10/[address] [place] [address](Laverne morales [facility]) [address] [place] [address](Luis E kramer [facility]) TELE CONSULT [id number] Notes Entered by: Elsy CHANG 15 Oct 2021944 ------- ------- ------- ------- -- ADAPT Initial Labs [facility] TREASURE MCINTYRE 10/[address] [place] [address]([facility] PSYCH DIAGNOSTIC EVALUATION [id number] Diagnos is: ICD-10- CM F33.9 Major depress iraida disorde r, recurre nt, unspeci fied
KENNETH WEAVER I 09/03 [facility] IEKATRIN [facility] CASE MANAGEMENT [id number] Diagnos is: ICD-10- CM F43.12 Post-tr aumatic stress disorde r, chronic
Dagmar BLANC GENE 09/04 [place] [facility] [id number] 09/07 [facility] En[facility] [id number] 09/08 [facility] En[facility] [id number] 09/08 [facility] [id number] 09/09 [facility] CASE MANAGEMENT [id number] Diagnos is: ICD-10- CM Z71.89 Other specifi ed dianetic counselor ing<br/ > EZEQUIEL NICOLE 09/09 [facility] CASE MANAGEMENT [id number] Diagnos is: ICD-10- CM F43.12 Post-tr aumatic stress disorde r, chronic
GUANACO,W GENE 09/11 [place] [facility] OFFICE O/P [place] 60-74 MIN [id number] Diagnos is: ICD-10- CM S06.301 D Unsp focal TBI w LOC of 30 minutes or less, subs
FUENTESJACEK QULIES THI 10/01 [facility] OFFICE O/P [place] 60-74 MIN [id number] Diagnos is: ICD-10- CM F43.10 Post-tr aumatic stress disorde r, unspeci fied
MJ CLARKA 11/09 [place] [facility] [place]AT[place] ADMIN [id number] CARROL CLARK 11/09 [facility] Out[facility] Encounter [id number] PHILIPPE HEALY 11/23 [facility] OFFICE O/P EST MOD 30-39 MIN [id number] Diagnos is: ICD-10- CM F43.10 Post-tr aumatic stress disorde r, unspeci fied
LUCINA BAJWA 12/10 [facility] Outpatient Encounter [id number] 12/10 [facility] OFFICE O/P EST MOD 30-39 MIN [id number] Diagnos is: ICD-10- CM F43.10 Post-tr aumatic stress disorde r, unspeci fied
BERENICE ROYAL OY F 12/22 [facility] OFFICE O/P EST LOW 20-29 MIN [id number] Diagnos is: ICD-10- CM F43.10 Post-tr aumatic stress disorde r, unspeci fied
BERENICE ROYAL OY F 01/19 [facility] [facility] En[facility] [id number] 02/08 [facility] Encounter [id number] 02/09 [facility] Encounter [id number] 02/09 [facility] [place] OFFICE O/P EST LOW 20 MIN [id number] Diagnos is: ICD-10- CM F43.10 Post-tr aumatic stress disorde r, unspeci fied
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
SHANNA GATES E 04/21 [facility] En[facility] [id number] 05/03 [facility] [place] OFFICE O/P EST MOD 30 MIN [id number] Diagnos is: ICD-10- CM N52.9 Male erectil e dysfunc tion, unspeci fied
BRODY BROOKS 05/06 [place] [facility] Encounter [id number] 05/06 [facility] En[facility] [id number] 05/24 [facility] [place] OFFICE O/P EST LOW 20 MIN [id number] Diagnos is: ICD-10- CM F43.10 Post-tr aumatic stress disorde r, unspeci fied
ROYAL,BERENICE OY F 05/31 [facility] [place] OFFICE O/P EST LOW 20 MIN [id number] Diagnos is: ICD-10- CM F43.10 Post-tr aumatic stress disorde r, unspeci fied
ROYAL,LER OY F 07/26 [facility] [place] [facility] Outpatient Encounter [id number] 08/11 [facility] Outpatient Encounter [id number] 08/17 [facility] [place] OFFICE O/P EST LOW 20 MIN [id number] 1BY. 51 Diagnos is: ICD-10- CM F43.10 Post-tr aumatic stress disorde r, unspeci fied
ROYAL,LER OY F 10/25 [facility] [place] OFFICE O/P EST LOW 20 MIN [id number] Diagnos is: ICD-10- CM F32.A Depress ion, unspeci fied
BERENICE ROYAL OY F 01/24 [facility] Procedures Combined list of: 1) Procedures from Department of Veterans Affairs facilities going back up to thelast 18 months, not all VA non-surgical procedures are included; 2) All procedures from the Department of Defense facilities. Procedure Procedure Type Code Date Perfomer Comments Sour e WAIVER SERVICES; NOT OTHERWISE SPECIFIED (NOS) DoD WAIVER SERVICES; NOT OTHERWISE SPECIFIED (NOS) DoD WAIVER SERVICES; NOT OTHERWISE SPECIFIED (NOS) [facility] BRIEF EMOTIONAL/BEHAVIORA L ASSESSMENT (EG, DEPRESSION INVENTORY, ATTENTION-DEFICIT/H YPERACTIVITY DISORDER [ADHD] SCALE), WITH SCORING AND DOCUMENTATION, PER STANDARDIZED INSTRUMENT DoD WAIVER SERVICES; NOT OTHERWISE SPECIFIED (NOS) [facility] WAIVER SERVICES; NOT OTHERWISE SPECIFIED (NOS) [facility] WAIVER SERVICES; NOT OTHERWISE SPECIFIED (NOS) DoD WAIVER SERVICES; NOT OTHERWISE SPECIFIED (NOS) [facility] BRIEF EMOTIONAL/BEHAVIORA L ASSESSMENT (EG, DEPRESSION INVENTORY, ATTENTION-DEFICIT/H YPERACTIVITY DISORDER [ADHD] SCALE), WITH SCORING AND DOCUMENTATION, PER STANDARDIZED INSTRUMENT DoD WAIVER SERVICES; NOT OTHERWISE SPECIFIED (NOS) DoD BRIEF EMOTIONAL/BEHAVIORA L ASSESSMENT (EG, DEPRESSION INVENTORY, ATTENTION-DEFICIT/H YPERACTIVITY DISORDER [ADHD] SCALE), WITH SCORING AND DOCUMENTATION, PER STANDARDIZED INSTRUMENT DoD WAIVER SERVICES; NOT OTHERWISE SPECIFIED (NOS) DoD WAIVER SERVICES; NOT OTHERWISE SPECIFIED (NOS) [facility] PSYCHIATRIC DIAGNOSTIC EVALUATION [facility] BRIEF EMOTIONAL/BEHAVIORA L ASSESSMENT (EG, DEPRESSION INVENTORY, ATTENTION-DEFICIT/H YPERACTIVITY DISORDER [ADHD] SCALE), WITH SCORING AND DOCUMENTATION, PER STANDARDIZED INSTRUMENT [facility] THERAPEUTIC, PROPHYLACTIC, OR DIAGNOSTIC INJECTION (SPECIFY SUBSTANCE OR DRUG); SUBCUTANEOUS OR INTRAMUSCULAR [facility] FITTING OF SPECTACLES, EXCEPT FOR APHAKIA; MONOFOCAL [facility] FITTING OF SPECTACLES, EXCEPT FOR APHAKIA; MONOFOCAL [facility] SCREENING TEST OF VISUAL ACUITY, QUANTITATIVE, BILATERAL [facility] TONE DECAY TEST [facility] Physician Supervised Injection Intramuscular Physician Supervised Injection Intramuscular 91551 TEE NICE Spectacles Services Fitting Monofocal Except For Aphakia Spectacles Services Fitting Monofocal Except For Aphakia 87895 GERBER LUNDBERG Ophthalmological Prior Patient Start Comprehensive Care Ophthalmological Prior Patient Start Comprehensive Care 13566 GERBER LUNDBERG Determination Of Refractive State Determination Of Refractive State 59750 GERBER LUNDBERG Visual Squires Test Intermediate Examination Visual Squires Test Intermediate Examination 92012 GERBER LUNDBERG Visual Squires Test Intermediate Examination Visual Squires Test Intermediate Examination 68787 012 ABELARDO JULIAN Spectacles Services Fitting Monofocal Except For Aphakia Spectacles Services Fitting Monofocal Except For Aphakia 84917 ABELARDO JULIAN Ophthalmological New Patient Start Comprehensive Care Ophthalmological New Patient Start Comprehensive Care 80137 ABELARDO JULIAN Determination Of Refractive State Determination Of Refractive State 88100 ABELARDO JULIAN Ophthalmological Sensorimotor Exam Ophthalmological Sensorimotor Exam 67010 ABELARDO JULIAN Screening Test Of Visual Acuity, Quantitative, Bilateral Screening Test Of Visual Acuity, Quantitative, Bilateral 40607 012 GEORGE ORTA [facility] Tympanometry With Reflex Threshold Measurements Tympanometry With Reflex Threshold Measurements 91548 KOFI [place] Normal ME function, Au [facility] Evoked Otoacoustic Radha ions Comprehensive Evoked Otoacoustic Emissions Comprehensive 74587 KOFI [place] Abnormal Au [facility] Comprehensive Audiometry Comprehensive Audiometry 60266 KOFI [place] PIPB Rollover speech function testing is a negative finding in the right ear [facility] Audiometry Tone Decay Test Audiometry Tone Decay Test 77314 KOFI [place] Abnormal @ 2KHz & 3KHz in the right ear [facility] Psychiatric Diagnostic Evaluation Comprehensive Examination Psychiatric Diagnostic Evaluation Comprehensive Examination 61197 ACE, JALYN G [facility] Psychometric Emotional / Behavioral A e ment Psychometric Emotional / Behavioral Assessment 26834 ELDRED, JALYN G [facility] Psychiatric Evaluation Explanation Of Exam Results Psychiatric Evaluation Explanation Of Exam Results 50781 DEANDRA BOURGEOIS [facility] Waiver services; not otherwise specified (NOS) DEANDRA BOURGEOIS [facility] Psychiatric Diagnostic Evaluation Initial Psychiatric Diagnostic Evaluation Initial 16421 DEANDRA BOURGEOIS [facility] Clinical Social Work Individual Outpatient Counseling 60 Minutes Clinical Social Work Individual Outpatient Counseling 60 Minutes 72726 DEANDRA BOURGEOIS Psychotherapy Group Psychotherapy Group 14592 DEANDRA BOURGEOIS Psychotherapy Group Interactive Psychotherapy Group Interactive 13272 DEANDRA BOURGEOIS [facility] Clinical Social Work Individual Outpatient Counseling 30 Minutes Clinical Social Work Individual Outpatient Counseling 30 Minutes 37854 DEANDRA BOURGEOIS No data available for this section Ambulato ry Pharmacy Social History Combined list of available smoking, tobacco, and other social history from Department of Defense and Veterans Affairs facilities. Social History Type Response Date Comment Sourc e Tobacco smoking status NHIS VA-TOBACCO NEVER USED 10/26/19 [place] History of tobacco use VA-TOBACCO NEVER USED 09/03/2022 [place] This section is an empty soc ial history section. DoD Assessment and Plan Combined list of future care activities from Department of Defense and Veterans Affairs facilities (e.g., assessment and plan notes, appointments, orders, and referrals). Additional future care activities may be listed in the Plan of Care section. Result Assessment and Plan Date Source Assessment and Plan No data available for this section 02/02/2024 Ambulatory Pharmacy Plan of Care List of future care activities from Department of Veterans Affairs facilities. Additional future care activities may be listed in the Assessment and Plan section. Date/Time Care Activity Care Activity Detail Facili ty 04/25/2024 AMBULATORY - PSYCHIATRY AMBULATORY [facility] [place] 05/11/2024 AMBULATORY - MEDICINE AMBULATORY - MEDICI [facility] [place] Functional Status Combined list of recent functional and cognitive assessments recorded at Department of Defense and Veterans Affairs (VA).VA Functional [place] Measurement (FIM) Scale: 1 = Total Assistance (Subject = 0% +), 2 = Maximal Assistance (Subject = 25% +), 3 = Moderate Assistance (Subject = 50% +), 4 = Minimal Assistance (Subject = 75% +), 5 = Supervision, 6 = Modified [place] (Device), 7 = Complete [place] (Timely, Safely). Assessment Date/Time Source Assessment Type Assessment Skill Assessment Score Assessment Details No data available for this section
--- OUTSIDE RECORDS SUMMARY | 2024-02-02 14:09 | XMS_ITS | Encounter Summary ---
Author Name [facility] ([place] Organization [place] Address [address] [place] [id number] Care Team Providers Care Code Number Stamper Name Role Phone ROSANNA SANTILLAN Primary Care [...] PRESCRIPT ION RX Apr 20, 2022 THPRX [id number] EVA VARGAS PATIENT [facility] KVNG BROWNLEE GAMA CHAPMAN E Apr 20, 2022 [facility] [id number] [phone] EVA VARGAS PATIENT Selected Encounter This section includes the information on record at [place] for the Encounter. Date/Time Encounter Type Encounter Description Reason Provider Source Jun 01, 2023 02:30 PM OFFICE O/P EST LOW 20 MIN [facility] - IND ICD-10-CM F43.10 Post-traumatic stress disorder, unspecified MONROE ROYAL [place] Encounter Template Text not used by VA Assessments - Encounter Diagnoses This section includes the primary and secondary diagnoses documented for the Encounter. Date/Time Primary/Secondary Diagnosis Diagnosis Name Provider Source Jun 01, 2023 03:04 PM PRIMARY Post-traumatic stress disorder, unspecified MONROE ROYAL [place] Plan of Treatment: Future Appointments (+ 6 months) and Future Tests (+/- 45 days) The Plan of Treatment section includes future care activities for the [facility] [place] [facility] [place] This section includes future appointments and future orders which are active, pending or scheduled. Future Appointments This section includes appointments that were scheduled to occur 6 months from the date of the Encounter, up to a maximum of 20 appointments. The data comes from all [facility]. Appointment Date/Time Appointment Type Appointme nt Facility Name Jul 27, 2023 03:30 PM AMBULATORY - [...] of theEncounter. The data comes from all [facility]. Test Date/Time Test Type Test Details Facility Name May 07, 2023 12:00 AM Laboratory - Chemi stry Order BASIC METABOLIC PANEL (fasting) BLOOD (SST-SERUM) [facility] May 07, 2023 12:00 AM Laboratory - Chemi stry Order LIPID PANEL FASTING BLOOD (SST-SERUM) [facility] May 07, 2023 12:00 AM Laboratory - Chemi stry Order LIVER FUNCTION BLOOD (SST-SERUM) [facility] May 07, 2023 12:00 AM Laboratory - Chemi stry Order CBC AND DIFF (AUTO) BLOOD (LAV-BLOOD) [facility] May 07, 2023 12:00 AM Laboratory - Chemi stry Order HEMOGLOBIN A1C PANEL BLOOD (LAV-BLOOD) [facility] May 07, 2023 12:00 AM Laboratory - Chemi stry Order TSH BLOOD (SST-SERUM) [facility] Jun 01, 2023 12:00 AM Laboratory - Chemi stry Order DRUGS OF ABUSE URINE (DRUG) [facility] Social History: Smoking Status (Most current) and Tobacco Use (All prior to encounter date) This section includes the most current, and the historical, smoking and tobacco- related health factors from the [place] facility where the Encounter took place. Current Smoking Status This section includes the most current smoking, or tobacco-related health factor, from the [place] facility where the Encounter took place. Date/Time Current Smoking Status Comment Stanislaw fox Sep 03, 2022 08:30 AM VA-TOBACCO NEVER USED [place] Encounter Notes: All associated encounter notes This section contains the clinical notes associated to the Encounter. Date/Time Encounter Note(s) Provider Source Jun 01, 2023 02:54 PM CLINICAL NURSE SPE CIALIST NOTE: LOCAL TITLE: CLINICAL NURSE SPECIALIST/MENTAL HEALTH STANDARD TITLE: CLINICAL NURSE SPECIALIST NOTE DATE OF NOTE: JUN 01, 2023@14:54 ENTRY DATE: JUN 01, 2023@14:54:51 AUTHOR: MONROE ROYAL EXP COSIGNER: URGENCY: STATUS: COMPLETED Dx PTSD , TBI medication management He had been receiving antidepressants from community pcp- Currently taking Venlafaxine 150mg SA daily with fair response for depression- experienced sexual side effects at higher doses. Had trials of Sertraline , Bupropion, Trazodone [...] Language- intact Good fund of knowledge Mood good .- No S/I PTSD symptoms: hypervigilance, revisiting memories, social withdrawal, sleep disturbance- minimal in good control Assessment: Has completed [employer] school in [place]- He states that he enjoys school but not the travel Mood improved some - no hx of S/I or H/I He is followed by [facility] for counseling - marriage is stable. he reports nightmares that are chronic - has tried Prazosin but lowered bp Labs/Radiology/Tests/Consultation _ none ordered __ obtained: labs not available in community (include response to medications, any medication side effects) Plan: Discussed reducing Venlafaxine to 75 mg SA last visit ( may help with ED) however had to return to 150mg because he felt out of it Suggested that he slowly decrease to 112.5 mg on a trial basis. Continue Bupropion 300mg SA daily- he states that it did help and did help with some of the sexual side effects Continue Mirtazapine 7.5 mg at hs for sleep -takes prn He will monitor for mood. Rt 8 weeks/prn The rationale for the psychiatric medications and the alternatives to treatment were discussed with the patient. The side effect profile of the psychiatric medications was reviewed with the patient. Patient demonstrated reasonable understanding of the medication side effects and the above issues. The benefits of psychiatric medications outweigh risks for this patient. I asked the patient call [phone] ([facility]) or to come to open access if needed Medication Reconciliation: Outpatient: Has the patient been taking medications as documented in the EMLR? YES: The patient has been taking medications as documented in the EMLR. Essential Medication List for Review used to complete this medication reconciliation. INCLUDED IN THIS LIST: Alphabetical list of active outpatient prescriptions dispensed from this VA (local) and dispensed from another [place] or DoD facility (remote) as well as [...] Royal APRN, STAFF CLINICAL NURSE SPECIALIST Signed: 06/01/2023 15:04 MONROE ROYAL
--- OUTSIDE RECORDS SUMMARY | 2024-02-02 14:10 | XMS_ITS | Encounter Summary ---
Author Name [facility] [place] Organization [facility] [place] Address [address] [place] [address] Care Team Providers Care Gastroenterologist Name Role Phone ROSANNA SANTILLAN Primary Care [...] PRESCRIPT ION RX Apr 20, 2022 THPRX [id number] [phone] EVA VARGAS PATIENT [facility] TORI Aguayo Apr 20, 2022 [id number] [phone] EVA VARGAS PATIENT Selected Encounter This section includes the information on record at [place] for the Encounter. Date/Time Encounter Type Encounter Description Reason Pro vider Source Aug 12, 2023 09:58 PM Outpatient Encounter ADMIN PAT ACTIVTIES (MASNONCT) IHE Encounter Template Text not used by [place] Plan of Treatment: Future Appointments (+ 6 [...] 20 appointments. The data comes from all [place] treatment facilities. Appointment Date/Time Appointment Type Appointme nt Facility Name Oct 26, 2023 08:30 AM AMBULATORY - PSYCHIATRY [facility] Jan 25, 2024 08:30 AM AMBULATORY - PSYCHIATRY [facility] Encounter Notes: All associated encounter notes This section contains the clinical notes associated to the Encounter. Date/Time Encounter Note(s) Provider Source Aug 12, 2023 09:58 PM PHARMACY NOTE: LOCAL TITLE: V1 PHARMACY CUSTOMER CARE MEDICATION RENEWAL STANDARD TITLE: PHARMACY NOTE DATE OF NOTE: AUG 12, 2023@21:58 ENTRY DATE: AUG 12, 2023@21:58:54 AUTHOR: MARI ALFORD EXP COSIGNER: URGENCY: STATUS: COMPLETED Date: Jul Division: [facility] referred by Pharmacy Call Center for medication renewal: Non-controlled/maintenan ce medication Medications requested: [id number] BUPROPION HCL 150MG 12HR SA TAB Defer to primary care provider , Defer to specialty clinic To be mailed . Please review and renew if appropriate. *This note was generated by [facility]/[place] Pharmacy Customer Care. If you have any questions or need assistance, do not contact this author. Please refer all questions to your local, on-site pharmacy departments. /renita/ MARI ALFORD CPhT Release And Technical Records Clerk, [place]/Pharmacy Customer Care Signed: 08/12/2023 21:59 Receipt Acknowledged By: 08/16/2023 15:05 /renita/ Monroe Vilalseñor APRN, STAFF CLINICAL NURSE SPECIALIST [facility]ORD MD [facility]
--- OUTSIDE RECORDS SUMMARY | 2024-02-02 14:10 | XMS_ITS | Encounter Summary ---
Author Name Department of Vetera Affairs ([place]) Organization [place] Address [address] [place] [address] Care Team Providers Care Chlorinator Operator Name Role Phone ROSANNA SANTILLAN Primary [...] PRESCRIPT ION RX Apr 20, 2022 THPRX [id number] EVA VARGAS PATIENT [facility] TORI Aguayo Apr 20, 2022 [id number] EVA VARGAS PATIENT Selected Encounter This section includes the information on record at [place] for the Encounter. Date/Time Encounter Type Encounter Description Reason Provider Source Jan 25, 2024 08:30 AM OFFICE O/P EST LOW 20 MIN [facility]INIC - IND ICD-10-CM F32.A Depression, unspecified MONROE ROYAL [place] Encounter Template Text not used by VA Assessments - Encounter Diagnoses This section includes the primary and secondary diagnoses documented for the Encounter. Date/Time Primary/Secondary Diagnosis Diagnosis Name Provider Source Jan 25, 2024 08:37 AM PRIMARY Depression, unspecified MONROE ROYAL [place] Plan of Treatment: Future Appointments (+ 6 months) and Future Tests (+/- 45 days) The Plan of Treatment section includes future care activities for the patient from all [place] treatmentfacilities. This section includes future appointments and future orders which are active, pending or scheduled. Future Appointments This section includes appointments that were scheduled to occur 6 months from the date of the Encounter, up to a maximum of 20 appointments. The data comes from all [place] treatment facilities. Appointment Date/Time Appointment Type Appointme nt Facility Name Apr 25, 2024 08:30 AM AMBULATORY - PSYCHIATRY [facility] May 11, 2024 09:00 AM AMBULATORY - MEDICINE [facility] Social History: Smoking Status (Most current) and Tobacco Use (All prior to encounter date) This section includes the most current, and the historical, smoking and tobacco- related health factors from the [place] facility where the Encounter took place. Current Smoking Status This section includes the most current smoking, or tobacco-related health factor, from the [place] facility where the Encounter took place. Date/Time Current Smoking Status Comment Stanislaw fox Oct 26, 2023 08:30 AM [place]-TOBACCO NEVER USED [place] Tobacco Use History This section includes a history of the smoking, or tobacco-related health factors, that were collected on or before the date of the Encounter. The data comes from the [place] facility where the Encounter took place. Date/Time Smoking Status/Tobacco Use Comment F jennifer Sep 03, 2022 08:30 AM [place]-TOBACCO NEVER USED [place] Encounter Notes: All associated encounter notes This section contains the clinical notes associated to the Encounter. Date/Time Encounter Note(s) Provider Source Jan 25, 2024 07:40 AM CLINICAL NURSE SPE CIALIST NOTE: LOCAL TITLE: CLINICAL NURSE SPECIALIST/MENTAL HEALTH STANDARD TITLE: CLINICAL NURSE SPECIALIST NOTE DATE OF NOTE: JAN 25, 2024@07:40 ENTRY DATE: JAN 25, 2024@07:41:33 AUTHOR: MONROE ROYAL EXP COSIGNER: URGENCY: STATUS: COMPLETED Dx PTSD , TBI medication management 22 min Faded off of Venlafaxine 3 weeks. He states that he has bad withdrawal symptoms even though he reduced slowly. He is now over withdrawal symptoms Relevant mental status exam or other objective findings: Appearance: - good self-care- well groomed , well-trimmed garnett tattoos Thought process- goal directed Speech : normal rate and tone No a/v hallucination/ delusions. Judgement and insight -intact Orientation- x 3 Associations intact Recent and remote memory- intact Attention and concentration- good Language- intact Good fund of knowledge Mood ok .- No S/I PTSD symptoms: hypervigilance, revisiting memories, social withdrawal, sleep disturbance- minimal in good control The following VA and Non-VA medications were reconciled with the patient: Active Outpatient Medications (including Supplies): BUPROPION HCL 150MG 12HR SA TAB TAKE TWO TABLETS BY MOUTH ACTIVE (S) EVERY MORNING FOR DEPRESSION SILDENAFIL CITRATE 100MG TAB TAKE ONE TABLET BY MOUTH ONCE ACTIVE DAILY FOR ERECTILE DYSFUNCTION TAKE 1 HOUR PRIOR TO SEXUAL ACTIVITY VENLAFAXINE HCL 75MG 24HR SA CAP TAKE ONE CAPSULE BY MOUTH ACTIVE ONCE DAILY FOR MAJOR DEPRESSIVE DISORDER Non-VA HYDROXYZINE HCL 25MG TAB 100MG BY MOUTH AT BEDTIME ACTIVE Non-VA TOPIRAMATE 50MG TAB 50MG BY MOUTH ONCE DAILY ACTIVE Assessment: Has completed [employer] school in [place]- 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 They have two children 13,10 will have joint custody.. Involved with school sports with his kids. Has gf, good support Labs/Radiology/Tests/Consultation _ none ordered __ obtained: labs not available in [facility] Plan: D/C Venlafaxine and agreed to try Buspar 5 mg bid for anxiety. He will take 5 mg at hs initially. Appears to be sensitive to medications Continue Bupropion 300mg SA daily- he states that it did help and did help with some of the sexual side effects He will monitor for mood. Rt 12 weeks/prn The rationale for the psychiatric medications and the alternatives to treatment were discussed with the patient. The side effect profile of the psychiatric medications was reviewed with the patient. Patient demonstrated reasonable understanding of the medication side effects and the above issues. The benefits of psychiatric medications outweigh risks for this patient. I asked the patient call [phone] ([facility]) or to come to open access if [...] this VA (local) and dispensed from another VA or [...] whether with a VA or non-VA provider. Alcohol Use Screen (AUDIT-C): Alcohol Screen: SCREEN FOR ALCOHOL (AUDIT-C) An alcohol screening test (AUDIT-C) was negative (score=0). 1. How often did you have a drink containing alcohol in the past year? Consider a drink to be a 12 ounce can or bottle of regular beer, 8 ounces of malt liquor, a 5 ounce glass of table wine, or a 1.5 ounce shot of liquor (like scotch, gin, or vodka). Never 2. How many drinks containing alcohol did you have on a typical day when you were drinking in the past year? Response not required due to responses to other questions. 3. How often did you have six or more drinks on one occasion in the past year? Response not required due to responses to other questions. /renita/ Monroe Royal APRN, STAFF CLINICAL NURSE SPECIALIST Signed: 01/25/2024 08:37 MONROE ROYAL
--- OUTSIDE RECORDS SUMMARY | 2024-02-02 14:10 | XMS_ITS ---
Author Name [facility] [place] Organization [place] Address [address] [place] [id number] Care Team Providers Care Website Admin Name Role Phone ROSANNA SANTILLAN Primary Care [...] PRESCRIPT ION RX Apr 20, 2022 THPRX [id number] EVA VARGAS PATIENT [facility] TORI Agauyo Apr 20, 2022 [id number] EVA VARGAS PATIENT Selected Encounter This section includes the information on record at [place] for the Encounter. Date/Time Encounter Type Encounter Description Reason Pro vider Source Aug 18, 2023 09:12 AM Outpatient Encounter ADMIN PAT ACTIVTIES (MASNONCT) IHE Encounter Template Text not used by CT Plan of Treatment: Future Appointments (+ 6 [...] 20 appointments. The data comes from all [place] treatment facilities. Appointment Date/Time Appointment Type Appointme nt Facility Name Oct 26, 2023 08:30 AM AMBULATORY - PSYCHIATRY [facility] Jan 25, 2024 08:30 AM AMBULATORY - PSYCHIATRY [facility] Encounter Notes: All associated encounter notes This section contains the clinical notes associated to the Encounter. Date/Time Encounter Note(s) Provider Source Aug 18, 2023 09:12 AM ADMINISTRATIVE NOT E: LOCAL TITLE: CCC: SCHEDULING ADMINISTRATION STANDARD TITLE: ADMINISTRATIVE NOTE DATE OF NOTE: AUG 18, 2023@09:12:48 ENTRY DATE: AUG 18, 2023@09:12:49 AUTHOR: TONE FRANCES EXP COSIGNER: URGENCY: STATUS: COMPLETED Patient Demographics Patient Name: EVA VARGAS Patient Primary Phone: [phone] Patient Primary Address: [address] [place], [place] [id number] Patient : 1985 Patient Age: 37 Caller/Recipient Relation to Patient: Self Administrative Administrative Note Reason: Medication Renewal CT Medications Refill/Renewal Request: BUPROPION HCL 150MG 12HR SA TAB SILDENAFIL CITRATE 100MG TAB Administrative Note Comments: He will not get it by mail in time and 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 /renita/ TONE FRANCES VISN1 [facility] Signed: 08/18/2023 09:12 Receipt Acknowledged By: 08/24/2023 10:29 /es/ ANDREA CARBONE LPN LPN 08/22/2023 09:33 /es/ Elizabeth Mosqueda, RN Registered Nurse for [facility]
--- OUTSIDE RECORDS SUMMARY | 2024-02-02 14:10 | XMS_ITS | Encounter Summary ---
Author Name Department of Vetera Affairs ([place]) Organization [place] Address [address] [place] [id number] Care Team Providers Care Adult Literacy Teacher Name Role Phone ROSANNA SANTILLAN Primary Care [...] PRESCRIPT ION RX Apr 20, 2022 THPRX [id number] [phone] EVA VARGAS PATIENT [facility] PLAN KVNG BROWNLEE GAMA CHAPMAN E Apr 20, 2022 [id number] [phone] EVA VARGAS PATIENT Selected Encounter This section includes the information on record at [place] for the Encounter. Date/Time Encounter Type Encounter Description Reason Provider Source Oct 26, 2023 08:30 AM OFFICE O/P EST LOW 20 MIN [facility]IC - IND ICD-10-CM F43.10 Post-traumatic stress disorder, unspecified [place]ROE ROYAL [place] Encounter Template Text not used by VA Assessments - Encounter Diagnoses This section includes the primary and secondary diagnoses documented for the Encounter. Date/Time Primary/Secondary Diagnosis Diagnosis Name Provider Source Oct 26, 2023 08:54 AM PRIMARY Post-traumatic stress disorder, unspecified MONROE ROYAL Plan of Treatment: Future Appointments (+ 6 months) and Future Tests (+/- 45 days) The Plan of Treatment section includes future care activities for the patient from all [place] treatmentfacilities. This section includes future appointments and future orders which are active, pending or scheduled. Future Appointments This section includes appointments that were scheduled to occur 6 months from the date of the Encounter, up to a maximum of 20 appointments. The data comes from all [place] treatment facilities. Appointment Date/Time Appointment Type Appointme nt Facility Name Jan 25, 2024 08:30 AM AMBULATORY - PSYCHIATRY [facility] Social History: Smoking Status (Most current) and Tobacco Use (All prior to encounter date) This section includes the most current, and the historical, smoking and tobacco- related health factors from the [place] facility where the Encounter took place. Current Smoking Status This section includes the most current smoking, or tobacco-related health factor, from the [place] facility where the Encounter took place. Date/Time Current Smoking Status Comment Facil [facility] Oct 26, 2023 08:30 AM [place]-TOBACCO NEVER USED [place] Tobacco Use History This section includes a history of the smoking, or tobacco-related health factors, that were collected on or before the date of the Encounter. The data comes from the [place] facility where the Encounter took place. Date/Time Smoking Status/Tobacco Use Comment F acility Sep 03, 2022 08:30 AM [place]-TOBACCO NEVER USED [place] Encounter Notes: All associated encounter notes This section contains the clinical notes associated to the Encounter. Date/Time Encounter Note(s) Provider Source Oct 26, 2023 07:49 AM CLINICAL NURSE SPE CIALIST NOTE: LOCAL TITLE: CLINICAL NURSE SPECIALIST/MENTAL HEALTH STANDARD TITLE: CLINICAL NURSE SPECIALIST NOTE DATE OF NOTE: OCT 26, 2023@07:49 ENTRY DATE: OCT 26, 2023@07:49:23 AUTHOR: MONROE ROYAL EXP COSIGNER: URGENCY: STATUS: COMPLETED Dx PTSD , TBI medication management 22 min Continues to fade off of Velafexine,currently taking 75mg daily and plans to reduce to 37.5 mg daily and D/C Relevant mental status exam or other objective [...] MOUTH ONCE DAILY ACTIVE Assessment: Has completed [employer] school in [place]- 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 some - no hx of S/I or H/I He is followed by [facility] for counseling - going through divorce process - [place] . They they have two children 13,10 will have joint custody.. Involved with school sports with his kids Labs/Radiology/Tests/Consultation _ none ordered __ obtained: labs not available in community Plan: Discussed reducing Venlafaxine to 35.5 mg SA x 30 days Continue Bupropion 300mg SA daily- he states [...] this patient. I asked the patient call [phone] ([facility]) or to come to open access if needed Suicide Screen: C-SSRS Screening [place] Suicide Severity Rating Scale (C-SSRS) screener 1. Over the past month, have you wished you were or wished you could go to sleep and not wake up? No 2. Over the past month, have you had any actual thoughts of killing yourself? No 3. Over the past month, have you been thinking about how you might do this? Response not required due to responses to other questions. 4. Over the past month, have you had these thoughts and had some intention of acting on them? Response not required due to responses to other questions. 5. Over the past month, have you started to work out or worked out the details of how to kill yourself? Response not required due to responses to other questions. 6. If yes, at any time in the past month did you intend to carry out this plan? Response not required due to responses to other questions. 7. In your lifetime, have you ever done anything, started to do anything, or prepared to do anything to end your life (for example, collected pills, obtained a gun, gave away valuables, went to the roof but didn't jump)? No 8. If YES, was this within the past 3 months? Response not required due to responses to other questions. Depression Screening: Perform PHQ-2 A PHQ-2 screen was performed. The score was 0 which is a negative screen for depression. Over the past two weeks, how often have you been bothered by the following problems? 1. Little interest or pleasure in doing things Not at all 2. Feeling down, depressed, or hopeless Not at all Medication Reconciliation: Outpatient: Has the patient been taking medications as documented in the EMLR? YES: The patient has been taking medications as documented in the EMLR. Essential Medication List for Review used to complete this medication reconciliation. INCLUDED IN THIS LIST: Alphabetical list of active outpatient prescriptions dispensed from this VA (local) and dispensed from another [place] or DoD facility (remote) as well as [...] whether with a VA or non-VA provider. Tobacco Use Screening: The patient has never used tobacco. /renita/ Monroe Royal APRN, STAFF CLINICAL NURSE SPECIALIST Signed: 10/26/2023 08:54 MONROE ROYAL
== END 2024-01-31 09:46 | disposition home or self-care (01) ==
LOC: HO.BBR 09:45
PROVIDERS: Visit Provider Internal Medicine Endocrinology, Diabetes & Metabolism
DX: D75.1 Secondary polycythemia (principal)
CPT/HCPCS: 85014; 85018; 99195

== ENCOUNTER 2024-03-06 09:09 | Outpatient (REF) | payer OTHER, SELFPAY ==
--- OUTSIDE RECORDS SUMMARY | 2024-03-06 09:48 | XMS_ITS | Encounter Summary ---
Author Name [facility] [place] Address [address] [place] [id number] Care Team Providers Care Deportation Examiner Name Role Phone ROSANNA SANTILLAN Primary Care [...] PRESCRIPT ION RX Apr 20, 2022 THPRX [id number] EVA VARGAS PATIENT FAMILY HEALTH PLAN KVNG BROWNLEE GAMA Augayo Apr 20, 2022 [id number] EVA VARGAS PATIENT Selected Encounter This [...] PRIMARY Post-traumatic stress disorder, unspecified ROYALMONROE ANN [place] Plan of Treatment: Future Appointments (+ 6 months) and Future Tests (+/- 45 days) The Plan of Treatment section includes future care activities for the patient from all [place] [facility]. This section includes future appointments and future orders which are active, pending or scheduled. Future Appointments This section includes appointments that were scheduled to occur 6 months from the date of the Encounter, up to a maximum of 20 appointments. The data comes from all [facility] facilities. Appointment Date/Time Appointment Type Appointme nt Facility Name Apr 21, 2023 02:30 PM AMBULATORY [place]ICINE [place] [facility] May 07, 2023 09:30 AM AMBULATORY - MEDICINE [facility] Jun 01, 2023 02:30 PM AMBULATORY - PSYCHIATRY [facility] Jul 27, 2023 03:30 PM AMBULATORY - PSYCHIATRY [facility] Active, Pending, and Scheduled Orders This section includes a listing of several types of active, pending, and scheduled orders, including clinic medications orders, diagnostic test orders, procedure orders and consult orders; where the start date of the order is 45 days before the date of the Encounter or 45 days after the date of theEncounter. The data comes from all [facility]. Test Date/Time Test Type Test Details Facility Name May 07, 2023 12:00 AM Laboratory - Chemi stry Order BASIC METABOLIC PANEL (fasting) BLOOD (SST-SERUM) [facility] May 07, 2023 12:00 AM Laboratory - Chemi stry Order LIPID PANEL FASTING BLOOD (SST-SERUM) [facility] May 07, 2023 12:00 AM Laboratory - Chemi stry Order LIVER FUNCTION BLOOD (SST-SERUM) [facility] May 07, 2023 12:00 AM Laboratory - Chemi stry Order CBC AND DIFF (AUTO) BLOOD (LAV-BLOOD) [facility] May 07, 2023 12:00 AM Laboratory - Chemi stry Order HEMOGLOBIN A1C PANEL BLOOD (LAV-BLOOD) [facility] May 07, 2023 12:00 AM Laboratory - Chemi stry Order TSH BLOOD (SST-SERUM) [facility] Social History: Smoking Status (Most current) and Tobacco Use (All prior to encounter date) This section includes the most current, and the historical, smoking and tobacco- related health factors from the [place] facility where the Encounter took place. Current Smoking Status This section includes the most current smoking, or tobacco-related health factor, from the [place] facility where the Encounter took place. Date/Time Current Smoking Status Comment Stanislaw fox Sep 03, 2022 08:30 AM VA-TOBACCO NEVER USED [place] Encounter Notes: All associated encounter notes This [...] minimal in good control Assessment: Has completed [employer] in [place]- He states that he enjoys school but not the travel Mood improved some - no hx of S/I or H/I He is followed by [facility] for counseling - marriage is stable. [...] this patient. I asked the patient [place] [phone] [place] or to come to open access if needed Medication Reconciliation: Outpatient: Has the patient been taking medications as documented in the EMLR? YES: The patient has been taking medications as documented in the EMLR. Essential Medication List for Review used to complete this medication reconciliation. INCLUDED IN THIS LIST: Alphabetical list of active outpatient prescriptions dispensed from this [place] (local) and dispensed from another [place] or [place] facility (remote) as well as [...]
--- OUTSIDE RECORDS SUMMARY | 2024-03-06 09:48 | XMS_ITS | Encounter Summary ---
Author Name [facility] [place] Address [address] [place] [id number] Care Team Providers Care Construction Electrician Name Role Phone ROSANNA SANTILLAN Primary Care [...] PRESCRIPT ION RX Apr 20, 2022 THPRX [id number] [phone] EVA VARGAS PATIENT FAMILY HEALTH PLAN KVNG Aguayo Apr 20, 2022 [id number] [phone] EVA VARGAS PATIENT Selected Encounter This section includes the information on record at [place] for the Encounter. Date/Time Encounter Type Encounter [...] 20 appointments. The data comes from all [facility]. Appointment Date/Time Appointment Type Appointme nt Facility Name May 07, 2023 09:30 AM AMBULATORY - MEDICINE [facility] Jun 01, 2023 02:30 PM AMBULATORY - PSYCHIATRY [facility] Jul 27, 2023 03:30 PM AMBULATORY - PSYCHIATRY [facility] Active, Pending, and Scheduled Orders This section includes a listing of several types of active, pending, and scheduled orders, including clinic medications orders, diagnostic test orders, procedure orders and consult orders; where the start date of the order is 45 days before the date of the Encounter or 45 days after the date of theEncounter. The data comes from all [facility]. Test Date/Time Test Type Test Details Facility Name May 07, 2023 12:00 AM Laboratory - Chemi stry Order BASIC METABOLIC PANEL (fasting) BLOOD (SST-SERUM) [facility] May 07, 2023 12:00 AM Laboratory - Chemi stry Order LIPID PANEL FASTING BLOOD (SST-SERUM) [facility] May 07, 2023 12:00 AM Laboratory - Chemi stry Order LIVER FUNCTION BLOOD (SST-SERUM) [facility] May 07, 2023 12:00 AM Laboratory - Chemi stry Order CBC AND DIFF (AUTO) BLOOD (LAV-BLOOD) [facility] May 07, 2023 12:00 AM Laboratory - Chemi stry Order HEMOGLOBIN A1C PANEL BLOOD (LAV-BLOOD) [facility] May 07, 2023 12:00 AM Laboratory - Chemi stry Order TSH BLOOD (SST-SERUM) [facility] Jun 01, 2023 12:00 AM Laboratory - Chemi stry Order DRUGS OF ABUSE URINE (DRUG) [facility] Encounter Notes: All associated encounter notes [...] Patient Name: EVA VARGAS Patient Primary Address: [address] [place] [address] Patient Primary Phone: [phone] Patient : 1985 Patient Age: 37 Caller/Recipient Relation to Patient: Self Emergency Contact: ERROL VARGAS Triage Summary Conducted triage/discussed symptoms Pain Score: 0 (No Pain) Utilized the Triage Tool: Yes Chief Complaint: Foreign Body In Eye System WHEN: Within 24 Hours Nurse's Recommendation / WHEN: Within 24 Hours System WHERE: Clinic Nurse's Recommendation / WHERE: Clinic/[facility] Patient Disposition Patient/Caregiver agrees to plan of care: Yes Patient WHERE: Appointment Patient WHEN: Within 24 hours Nursing Plan and Disposition Referred Patient for In-Person Appt Other course(s) of action Other Other Description: Warm transferred to eye clinic Generated msg to PACT/Provider Provided guidance for worsening symptoms: *Caller/Patient* advised to call facilities [place] Clinical Contact Center or seek immediate medical attention for new or worsening symptoms Nurse Summary Nurse Summary: Received call from [place]. [place] explains he has noticed over the past [...] redness or drainage or any other sx. usually sees a civilian eye doctor but is requesting to see the eye clinic at the [place]. See ROS. Directed to seek care within 24 hours. [facility] precautions provided. Warm transferred [place] to [place] eye clinic for assistance. Information forwarded to PACT for review and follow up. Clinical Contact Center Codes Clinic/Location: V1 CWM PHONE CCC RN TXCC Triage Complete Triage Note: Phone Triage 21 Apr 2023 14:48:38 +0000 [facility] Demographics 37 y/o Male Results CC: Foreign Body In Eye Software suggested: Within 24 Hours Software suggested follow-up location: Clinic, consider [facility] care Values and Measures Duration of [...] MITRA SHAH LPN, [facility]
--- OUTSIDE RECORDS SUMMARY | 2024-03-06 09:48 | XMS_ITS | Encounter Summary ---
Author Name [facility] [place] Organization [place] Address [address] [place] [address] Care Team Providers Care Phone Counselor Name Role Phone ROSANNA SANTILLAN Primary Care [...] PRESCRIPT ION RX Apr 20, 2022 THPRX [id number] [phone] ALICIA EVA PATIENT FAMILY HEALTH PLAN BRKANDY Aguayo Apr 20, 2022 [id number] EVA VARGAS PATIENT Selected Encounter This section includes the information on record at [place] for the Encounter. Date/Time Encounter Type Encounter [...] PM PRIMARY Conjunctival concretions, bilateral SUEDICK Gerardo [place] [facility] Plan of Treatment: Future Appointments (+ 6 months) and Future Tests (+/- 45 days) The Plan of Treatment section includes future care activities for the patient from all [place] [facility]. This section includes future appointments and future orders which are active, pending or scheduled. Future Appointments This section includes appointments that were scheduled to occur 6 months from the date of the Encounter, up to a maximum of 20 appointments. The data comes from all [facility]. Appointment Date/Time Appointment Type Appointme [...] of theEncounter. The data comes from all [facility]. Test Date/Time Test Type Test Details Facility Name May 07, 2023 12:00 AM Laboratory - Chemi stry Order BASIC METABOLIC PANEL (fasting) BLOOD (SST-SERUM) [facility] May 07, 2023 12:00 AM Laboratory - Chemi stry Order LIPID PANEL FASTING BLOOD (SST-SERUM) [facility] May 07, 2023 12:00 AM Laboratory - Chemi stry Order LIVER FUNCTION BLOOD (SST-SERUM) [facility] May 07, 2023 12:00 AM Laboratory - Chemi stry Order CBC AND DIFF (AUTO) BLOOD (LAV-BLOOD) [facility] May 07, 2023 12:00 AM Laboratory - Chemi stry Order HEMOGLOBIN A1C PANEL BLOOD (LAV-BLOOD) [facility] May 07, 2023 12:00 AM Laboratory - Chemi stry Order TSH BLOOD (SST-SERUM) [facility] Jun 01, 2023 12:00 AM Laboratory - Chemi stry Order DRUGS OF ABUSE URINE (DRUG) [facility] Encounter Notes: All associated encounter notes [...] March 18, [address] Hernandez in [place]. He did not think to mention this [...] the community. 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
--- OUTSIDE RECORDS SUMMARY | 2024-03-06 09:48 | XMS_ITS | Encounter Summary ---
Author Name [facility] [place] Organization [facility] Address [address] [place] [address] Care Team Providers Care Foundry Patternmaker Name Role Phone ROSANNA SANTILLAN Primary Care [...] PRESCRIPT ION RX Apr 20, 2022 THPRX [id number] EVA VARGAS PATIENT FAMILY HEALTH PLAN TORI Aguayo Apr 20, 2022 [facility] [id number] [phone] EVA VARGAS PATIENT Selected Encounter This [...] 20 appointments. The data comes from all [facility]. Appointment Date/Time Appointment Type Appointme nt Facility Name May 07, 2023 09:30 AM AMBULATORY - MEDICINE [facility] Jun 01, 2023 02:30 PM AMBULATORY - PSYCHIATRY [facility] Jul 27, 2023 03:30 PM AMBULATORY - PSYCHIATRY [facility] Oct 26, 2023 08:30 AM AMBULATORY - PSYCHIATRY [facility] Active, Pending, and Scheduled Orders This section includes a listing of several types of active, pending, and scheduled orders, including clinic medications orders, diagnostic test orders, procedure orders and consult orders; where the start date of the order is 45 days before the date of the Encounter or 45 days after the date of theEncounter. The data comes from all [facility]. Test Date/Time Test Type Test Details Facility Name May 07, 2023 12:00 AM Laboratory - Chemi stry Order BASIC METABOLIC PANEL (fasting) BLOOD (SST-SERUM) [facility] May 07, 2023 12:00 AM Laboratory - Chemi stry Order LIPID PANEL FASTING BLOOD (SST-SERUM) [facility] May 07, 2023 12:00 AM Laboratory - Chemi stry Order LIVER FUNCTION BLOOD (SST-SERUM) [facility] May 07, 2023 12:00 AM Laboratory - Chemi stry Order CBC AND DIFF (AUTO) BLOOD (LAV-BLOOD) [facility] May 07, 2023 12:00 AM Laboratory - Chemi stry Order HEMOGLOBIN A1C PANEL BLOOD (LAV-BLOOD) [facility] May 07, 2023 12:00 AM Laboratory - Chemi stry Order TSH BLOOD (SST-SERUM) [facility] Jun 01, 2023 12:00 AM Laboratory - Chemi stry Order DRUGS OF ABUSE URINE (DRUG) [facility] Encounter Notes: All associated encounter notes This section contains the clinical notes associated to the Encounter. Date/Time Encounter Note(s) Provider Source May 06, 2023 11:33 AM ADDENDUM: LOCAL TITLE: Addendum STANDARD TITLE: ADDENDUM DATE OF NOTE: MAY 06, 2023@11:33:11 ENTRY DATE: MAY 06, 2023@11:33:11 AUTHOR: BRIGIDA SORENSON COSIGNER: URGENCY: STATUS: COMPLETED Forwarding to [facility]- Please contact to assist with scheduling focused [...] LPN 05/06/2023 ADDENDUM STATUS: COMPLETED Forwarding to [facility]- Please contact to assist with scheduling focused PCP visit. /antonia SORENSON RN REGISTERED NURSE Signed: 05/06/2023 11:35 Receipt Acknowledged By: 05/06/2023 13:03 /antonia LOPES 05/06/2023 ADDENDUM STATUS: COMPLETED Allergy And Immunology Chief saw has an appointment with PCP for 05/07/23. /antonia LOPES Signed: 05/06/2023 13:04 LAINEY CARPENTER CNTRPiero MANZO
--- OUTSIDE RECORDS SUMMARY | 2024-03-06 09:48 | XMS_ITS | Continuity of Care Document ---
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 Appointment [facility](A [facility] Team A) [facility] Team A) OUTPATIENT [id number] Medicat ion refill, Sleep aid TEE NICE 02/14 Released w/o Limitations [facility](A [facility] Team A[facility](Opt ometry) OUTPATIENT [id number] eye exam BECKIDede GERBER M 05/23 Released w/o Limitations [facility](O ptometr y) [facility]) OUTPATIENT [id number] Notes Entered by: VICTORIA TRIPP 29 Jun 2013 1322 ------- ------- ------- ------- -- ANNUAL PHA RONY MARTÍNEZ 06/29 Released w/o Limitations [facility]) [facility] Team A) OUTPATIENT [id number] DHA ALAN LION 07/11 Released w/o Limitations [facility](A [facility] Team A) [facility] Team A) OUTPATIENT [id number] lower back pain QUINTEN MONTENEGRO 12/07 Released w/o Limitations [facility](A [facility] Team A) [facility] Team A) OUTPATIENT [id number] back pain TEE NICE 12/19 Released with Work/Duty Limitations [facility](A [facility] Team A) [facility] Team A) OUTPATIENT [id number] pain in lower in back going down legs TEE NICE 01/09 Released with Work/Duty Limitations [facility](A [facility] Team A) [facility] Team A) TELE CONSULT [id number] Notes Entered by: IFTIKHAR TYSON 11 Jan 2014 0846 ------- ------- ------- ------- -- Normal L/S DB Cain 01/11 Referred for Appointment [employer](A [facility] Team A) [employer]([facility]) OUTPATIENT [id number] [facility] MAXIMINO PerezSTAUGUSTUS Darden 01/22 Released w/o Limitations [employer](A [facility] Team A) [employer]([facility]) TELE CONSULT [id number] Notes Entered by: RIMA ARBOLEDA 30 Mar 2014 1316 ------- ------- ------- ------- -- NETWORK RESULTS [facility] PT/01/25 LOOK IN DiptiI TEE NICE 03/30 [facility](A [facility] Team A) [employer]([facility] Team A) TELE CONSULT [id number] Notes Entered by: JUAN GIRON 17 May 2017 1016 ------- ------- ------- ------- -- Con Lv Request STACEY ROSAS 05/17 Referred for Appointment [employer]([facility] Team A) [facility] Team A) TELE CONSULT [id number] Notes Entered by: ALLAN ROSAS 27 May 2017 1037 ------- ------- ------- ------- -- Con Leave Request MARICEL MENDIETA 05/27 [facility] Team A) [facility] Team A) TELE CONSULT [id number] Notes Entered by: GRISELDA DALEY 24 Apr 2020 1114 ------- ------- ------- ------- -- Con Leave BRITTANIE SORENSON 04/24 Other Not Elsewhere Classified [employer]([facility] Team A) [facility] Team A) TELE CONSULT [id number] Notes Entered by: MAYDA XAVIER 14 Oct 2020929 ------- ------- ------- ------- -- Other - Med Board Echo diamond IRENE WAYNE 10/14 Other Not Elsewhere Classified [address] [place] [address]( [facility] OUTPATIENT [id number] FAILED TEST/WE KOFI FRANCO 02/12 Released w/o Limitations [facility]( [facility]) [address] [place] [address]([facility]) TELE CONSULT [id number] Notes Entered by: Elsy CHANG 15 Oct 202121 ------- ------- ------- ------- -- ADAPT Initial Labs TREASURE MCINTYRE 10/[address] [place] [address]([facility]) [address] [place] [address]([facility]) TELE CONSULT [id number] Notes Entered by: Elsy CHANG 15 Oct 202145 ------- ------- ------- ------- -- ADAPT Initial Labs [facility] TREASURE MCINTYRE 10/[address] [place] [address]([facility]) MOM[facility] PSYCH DIAGNOSTIC EVALUATION [id number] Diagnos is: ICD-10- CM F33.9 Major depress iraida disorde r, recurre nt, unspeci fied
JORGEMALIKKENNETH Gerardo 09/[address] [facility] CASE MANAGEMENT [id number] Diagnos is: ICD-10- CM F43.12 Post-tr aumatic stress disorde r, chronic
Dagmar BLANC GENE 09/04 [facility] [place] [facility] Outpatient Encounter [id number] 09/07 [facility] [place] [facility] En[facility] [id number] 09/08 [facility] [place] En[facility] [id number] 09/08 [facility] [place] [facility] Encounter [id number] 09/09 [facility] [place] [facility] CASE MANAGEMENT [id number] Diagnos is: ICD-10- CM Z71.89 Other specifi ed summer counselor ing<br/ > EZEQUIEL NICOLE 09/09 [place] [facility] [facility] CASE MANAGEMENT [id number] Diagnos is: ICD-10- CM F43.12 Post-tr aumatic stress disorde r, chronic
GUANACO,W GENE 09/11 [facility] [place] [facility] [place] [facility] OFFICE O/P [place] 60-74 MIN [id number] Diagnos is: ICD-10- CM S06.301 D Unsp focal TBI w LOC of 30 minutes or less, subs
JACEK FUENTES THI 10/01 [facility] [place] [place] [facility] OFFICE O/P [place] 60-74 MIN [id number] Diagnos is: ICD-10- CM F43.10 Post-tr aumatic stress disorde r, unspeci fied
CARROL CLARK 11/09 [place] [facility] [place] [place] ADMIN [id number] CARROL CLARK 11/09 [place] [facility] [place] [facility] [place] Outpatient Encounter [id number] PHILIPPE HEALY 11/23 [facility] [place] [facility] [place] OFFICE O/P EST MOD 30-39 MIN [id number] Diagnos is: ICD-10- CM F43.10 Post-tr aumatic stress disorde r, unspeci fied
LUCINA BAJWA J 12/10 [place] [facility] [place] [facility] Outpatient Encounter [id number] 12/10 [place] [place] [facility] [place] OFF[place] O/P EST MOD 30-39 MIN [id number] Diagnos is: ICD-10- CM F43.10 Post-tr aumatic stress disorde r, unspeci fied
BERENICE ROYAL OY F 12/22 [place] [facility]P EST LOW 20-29 MIN [id number] Diagnos is: ICD-10- CM F43.10 Post-tr aumatic stress disorde r, unspeci fied
BERENICE ROYAL OY F 01/19 [place] [facility] Out[facility] En[facility] [id number] 02/08 [place] [facility] [place] Encounter [id number] 02/09 [facility] [place] [facility] [place] Encounter [id number] 02/09 [place] [place] [facility] [place] OFF[place] O/P EST LOW 20 MIN [id number] Diagnos is: ICD-10- CM F43.10 Post-tr aumatic stress disorde r, unspeci fied
BERENICE ROYAL OY F 03/30 [place] [facility] En[facility] [id number] 04/21 [facility] [place] [facility] [place] Out[facility] Encounter [id number] Laverne SHIELDS 04/21 [facility] [place] [facility] [facility] [place] 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
SHANNA GATES JANIS E 04/21 [facility] [place] [place] [facility] Outpatient Encounter [id number] 05/03 [facility] [place] [facility] [place] OFFICE O/P EST MOD 30 MIN [id number] Diagnos is: ICD-10- CM N52.9 Male erectil e dysfunc tion, unspeci fied
BRODY BROOKS 05/06 [facility] [place] [facility] [place] [facility] Outpatient Encounter [id number] 05/06 [place] [facility] [place] [facility] Outpatient Encounter [id number] 05/24 [facility] [place] OFFICE O/P EST LOW 20 MIN [id number] Diagnos is: ICD-10- CM F43.10 Post-tr aumatic stress disorde r, unspeci fied
BERENICE ROYAL OY F 05/31 [facility] LOW 20 MIN [id number] Diagnos is: ICD-10- CM F43.10 Post-tr aumatic stress disorde r, unspeci fied
BERENICE ROYAL OY F 07/26 [facility] [place] [facility] Outpatient Encounter [id number] 08/11 [place] [facility] [place] [facility] Outpatient Encounter [id number] 08/17 [facility] [place] [facility] OFFICE O/P EST LOW 20 MIN [id number] 1BY. 51 Diagnos is: ICD-10- CM F43.10 Post-tr aumatic stress disorde r, unspeci fied
BERENICE ROYAL OY F 10/[address] [facility] CASE MANAGEMENT [id number] 1BY. 66 Diagnos is: ICD-10- CM F32.A Depress ion, unspeci fied
Dagmar BLANC GENE 01/[address] [facility] OFFICE O/P EST LOW 20 MIN [id number] Diagnos is: ICD-10- CM F32.A Depress ion, unspeci fied
BERENICE ROYAL OY F 01/24 [facility] Procedures Combined list of: 1) Procedures from Department of Veterans Affairs facilities going back up to thelast 18 months, not all VA non-surgical procedures are included; 2) All procedures from the Department of Defense facilities. Procedure Procedure Type Code Date Perfomer Comments Sourc e No data available for this section Amb[facility] ry Pharmacy TONE DECAY TEST [facility] WAIVER SERVICES; NOT OTHERWISE SPECIFIED (NOS) [facility]; NOT OTHERWISE SPECIFIED (NOS) [facility]; NOT OTHERWISE SPECIFIED (NOS) [facility] BRIEF EMOTIONAL/BEHAVIORA L ASSESSMENT (EG, DEPRESSION INVENTORY, [...] [facility] WA[facility] SERVICES; NOT OTHERWISE SPECIFIED (NOS) [facility] BRIEF EMOTIONAL/BEHAVIORA L ASSESSMENT (EG, DEPRESSION INVENTORY, ATTENTION-DEFICIT/H YPERACTIVITY DISORDER [ADHD] SCALE), WITH SCORING AND DOCUMENTATION, PER STANDARDIZED INSTRUMENT [facility] WAIVER SERVICES; NOT OTHERWISE SPECIFIED (NOS) [facility]; NOT OTHERWISE SPECIFIED (NOS) [facility] PSYCHIATRIC DIAGNOSTIC EVALUATION [facility] BRIEF EMOTIONAL/BEHAVIORA L ASSESSMENT (EG, DEPRESSION INVENTORY, ATTENTION-DEFICIT/H YPERACTIVITY DISORDER [ADHD] SCALE), WITH SCORING AND DOCUMENTATION, PER STANDARDIZED INSTRUMENT [facility] THERAPEUTIC, PROPHYLACTIC, OR DIAGNOSTIC INJECTION (SPECIFY SUBSTANCE OR DRUG); SUBCUTANEOUS OR INTRAMUSCULAR [facility] FITTING OF SPECTACLES, EXCEPT FOR APHAKIA; MONOFOCAL [facility] FITTING OF SPECTACLES, EXCEPT FOR APHAKIA; MONOFOCAL [facility] SCREENING TEST OF VISUAL ACUITY, QUANTITATIVE, BILATERAL DoD Physician Supervised Injection Intramuscular Physician Supervised Injection Intramuscular 40225 TEE NICE DoD Spectacles Services Fitting Monofocal Except For Aphakia Spectacles Services Fitting Monofocal Except For Aphakia 41955 GERBER LUNDBERG Ophthalmological Prior Patient Start Comprehensive Care Ophthalmological Prior Patient Start Comprehensive Care 38658 GERBER LUNDBERG Determination Of Refractive State Determination Of Refractive State 35314 GERBER LUNDBERG Visual Squires Test Intermediate Examination Visual Squires Test Intermediate Examination 81977 014 TOÑO GERBERKatalina Mock Visual Squires Test Intermediate Examination Visual Squires Test Intermediate Examination 87188 012 ABELARDO JULIAN Spectacles Services Fitting Monofocal Except For Aphakia Spectacles Services Fitting Monofocal Except For Aphakia 21328 012 ABELARDO JULIAN Ophthalmological New Patient Start Comprehensive Care Ophthalmological New Patient Start Comprehensive Care 55130 012 ABELARDO JULIAN Determination Of Refractive State Determination Of Refractive State 41158 012 ABELARDO JULIAN Ophthalmological Sensorimotor Exam Ophthalmological Sensorimotor Exam 10869 012 ABELARDO JULIAN Screening Test Of Visual Acuity, Quantitative, Bilateral Screening Test Of Visual Acuity, Quantitative, Bilateral 12930 012 GEORGE ORTA [facility] Tympanometry With Reflex Threshold Measurements Tympanometry With Reflex Threshold Measurements 05622 KOFI [place] Normal ME function, Au [facility] Evoked Otoacoustic Radha ions Comprehensive Evoked Otoacoustic Emissions Comprehensive 59036 [place] Abnormal Au DoD Comprehensive Audiometry Comprehensive Audiometry 14972 [place] PIPB Rollover speech function testing is a negative finding in the right ear [facility] Audiometry Tone Decay Test Audiometry Tone Decay Test 09301 [place] Abnormal @ 2KHz & 3KHz in the right ear [facility] Psychiatric Diagnostic Evaluation Comprehensive Examination Psychiatric Diagnostic Evaluation Comprehensive Examination 94827 JALYN BELLO G [facility] Psychometric Emotional / Behavioral A e ment Psychometric Emotional / Behavioral Assessment 39392 ACE, JALYN G [facility] Psychiatric Evaluation Explanation Of Exam Results Psychiatric Evaluation Explanation Of Exam Results 96692 DEANDRA BOURGEOIS [facility] Waiver services; not otherwise specified (NOS) DEANDRA BOURGEOIS [facility] Psychiatric Diagnostic Evaluation Initial Psychiatric Diagnostic Evaluation Initial 73031 DEANDRA BOURGEOIS [facility] Clinical Social Work Individual Outpatient Counseling 60 Minutes Clinical Social Work Individual Outpatient Counseling 60 Minutes 38929 DEANDRA BOURGEOIS [facility] Psychotherapy Group Psychotherapy Group 25976 DEANDRA BOURGEOIS Psychotherapy Group Interactive Psychotherapy Group Interactive 60027 DEANDRA BOURGEOIS [facility] Clinical Social Work Individual Outpatient Counseling 30 Minutes Clinical Social Work Individual Outpatient Counseling 30 Minutes 39044 DEANDRA BOURGEOIS [facility] Social History Combined list of available smoking, tobacco, and other social history from Department of Defense and Veterans Affairs facilities. Social History Type Response Date Comment Sourc e Tobacco smoking status NHIS VA-TOBACCO NEVER USED 10/26/19 [place] History of tobacco use VA-TOBACCO NEVER USED 09/03/2022 [place] This section is an empty soc ial [...] Plan No data available for this section 03/06/2024 Ambulatory Pharmacy Plan of Care List of future care activities from Department of Veterans Affairs facilities. Additional future care activities may be listed in the Assessment and Plan section. Date/Time Care Activity Care Activity Detail Facili ty 04/25/2024 AMBULATORY - PSYCHIATRY AMBULATORY - PSYC [facility] 05/11/2024 AMBULATORY - MEDICINE AMBULATORY - MEDICI [place] Functional Status Combined list of recent functional and cognitive assessments recorded at Department of Defense and Veterans Affairs ([place] Functional [place] Measurement (FIM) Scale: 1 = Total Assistance (Subject = 0% +), 2 = Maximal Assistance (Subject = 25% +), 3 = Moderate Assistance (Subject = 50% +), 4 = Minimal Assistance (Subject = 75% +), 5 = Supervision, 6 = Modified [place] (Device), 7 = Complete [place] (Timely, Safely). Assessment Date/Time Source Assessment Type Assessment Skill Assessment Score Assessment Details No data available for this section
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
--- OUTSIDE RECORDS SUMMARY | 2024-03-06 09:49 | XMS_ITS ---
Author Name [facility] Organization [facility] Address [address] [place] [address] Care Team Providers Care Medical Transcription Radiology Name Role Phone ROSANNA SANTILLAN Primary Care [...] PRESCRIPT ION RX Apr 20, 2022 [facility] [id number] EVA VARGAS PATIENT FAMILY HEALTH PLAN TORI Aguayo Apr 20, 2022 [facility] [id number] [phone] EVA VARGAS PATIENT Selected Encounter This [...] 20 appointments. The data comes from all [facility]. Appointment Date/Time Appointment Type Appointme nt Facility Name Jun 01, 2023 02:30 PM AMBULATORY - PSYCHIATRY [facility] Jul 27, 2023 03:30 PM AMBULATORY - PSYCHIATRY [facility] Oct 26, 2023 08:30 AM AMBULATORY - PSYCHIATRY [facility] Active, Pending, and Scheduled Orders This section includes a listing of several types of active, pending, and scheduled orders, including clinic medications orders, diagnostic test orders, procedure orders and consult orders; where the start date of the order is 45 days before the date of the Encounter or 45 days after the date of theEncounter. The data comes from all [facility]. Test Date/Time Test Type Test Details Facility Name May 07, 2023 12:00 AM Laboratory - Chemi stry Order BASIC METABOLIC PANEL (fasting) BLOOD (SST-SERUM) [facility] May 07, 2023 12:00 AM Laboratory - Chemi stry Order LIPID PANEL FASTING BLOOD (SST-SERUM) [facility] May 07, 2023 12:00 AM Laboratory - Chemi stry Order LIVER FUNCTION BLOOD (SST-SERUM) [facility] May 07, 2023 12:00 AM Laboratory - Chemi stry Order CBC AND DIFF (AUTO) BLOOD (LAV-BLOOD) [facility] May 07, 2023 12:00 AM Laboratory - Chemi stry Order HEMOGLOBIN A1C PANEL BLOOD (LAV-BLOOD) [facility] May 07, 2023 12:00 AM Laboratory - Chemi stry Order TSH BLOOD (SST-SERUM) [facility] Jun 01, 2023 12:00 AM Laboratory - Chemi stry Order DRUGS OF ABUSE URINE (DRUG) [facility] Encounter Notes: All associated encounter notes This [...] advance directive on file at any facility, [place] or outside. S/he is not interested in [...] full rights to use it throughout the [place] system. PRIMARY SCREEN RESULT: The Primary Screen [...] LPN LPN Signed: 05/07/2023 09:44 YAZMIN SHARP STOUT
--- OUTSIDE RECORDS SUMMARY | 2024-03-06 09:49 | XMS_ITS | Encounter Summary ---
Author Name [facility] [place] [place] Organization [facility] [place] Address [address] [place] [id number] Care Team Providers Care Family Manager Name Role Phone ROSANNA SANTILLAN Primary [...] PRESCRIPT ION RX Apr 20, 2022 [facility] [id number] EVA VARGAS PATIENT FAMILY HEALTH PLAN TORI Aguayo Apr 20, 2022 [facility] [id number] EVA VARGAS PATIENT Selected Encounter This [...] 08:37 AM PRIMARY Depression, unspecified [place] RO[place]AL [place] Plan of Treatment: Future Appointments (+ 6 months) and Future Tests (+/- 45 days) The Plan of Treatment section includes future care activities for the patient from all [place] treatmentfacilities. This section includes future appointments and future orders which are active, pending or scheduled. Future Appointments This section includes appointments that were scheduled to occur 6 months from the date of the Encounter, up to a maximum of 20 appointments. The data comes from all [place] treatment facilities. Appointment Date/Time Appointment Type Appointme nt Facility Name Apr 25, 2024 08:30 AM AMBULATORY - PSYCHIATRY [facility] May 11, 2024 09:00 AM AMBULATORY - MEDICINE [facility] Social History: Smoking Status (Most current) and Tobacco Use (All prior to encounter date) This section includes the most current, and the historical, smoking and tobacco- related health factors from the [place] facility where the Encounter took place. Current Smoking Status This section includes the most current smoking, or tobacco-related health factor, from the [place] facility where the Encounter took place. Date/Time Current Smoking Status Comment Stanislaw fox Oct 26, 2023 08:30 AM [place]-TOBACCO NEVER USED [place] Tobacco Use History This section includes a history of the smoking, or tobacco-related health factors, that were collected on or before the date of the Encounter. The data comes from the [place] facility where the Encounter took place. 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 They have two children 13,10 will have joint custody.. Involved with school sports with his kids. Has gf, good support Labs/Radiology/Tests/Consultation _ none ordered __ obtained: labs not available in [facility] Plan: D/C Venlafaxine and agreed to try [...] this patient. I asked the patient call [phone] [place] or to come to open access if [...]
--- OUTSIDE RECORDS SUMMARY | 2024-03-06 09:49 | XMS_ITS | Encounter Summary ---
Author Name [facility] [place] Organization [facility] [place] [place] Address [address] [place] [address] Care Team Providers Care Sewing Supervisor Name Role Phone ROSANNA SANTILLAN Primary Care [...] PRESCRIPT ION RX Apr 20, 2022 [facility] [id number] [phone] EVA VARGAS PATIENT FAMILY HEALTH PLAN KVNG BROWNLEE GAMA CHAPMAN E Apr 20, 2022 [facility] [id number] EVA VARGAS PATIENT Selected Encounter This section includes the information on record at [place] for the Encounter. Date/Time Encounter Type Encounter [...] PRIMARY Post-traumatic stress disorder, unspecified [place] Plan of Treatment: Future Appointments (+ 6 months) and Future Tests (+/- 45 days) The Plan of Treatment section includes future care activities for the patient from all [place] [facility] This section includes future appointments and future orders which are active, pending or scheduled. Future Appointments This section includes appointments that were scheduled to occur 6 months from the date of the Encounter, up to a maximum of 20 appointments. The data comes from all [facility]. Appointment Date/Time Appointment Type Appointme nt Facility Name Jul 27, 2023 03:30 PM AMBULATORY - PSYCHIATRY [facility] Oct 26, 2023 08:30 AM AMBULATORY - PSYCHIATRY [facility] Active, Pending, and Scheduled Orders This section includes a listing of several types of active, pending, and scheduled orders, including clinic medications orders, diagnostic test orders, procedure orders and consult orders; where the start date of the order is 45 days before the date of the Encounter or 45 days after the date of theEncounter. The data comes from all [facility]. Test Date/Time Test Type Test Details Facility Name May 07, 2023 12:00 AM Laboratory - Chemi stry Order BASIC METABOLIC PANEL (fasting) BLOOD (SST-SERUM) [facility] May 07, 2023 12:00 AM Laboratory - Chemi stry Order LIPID PANEL FASTING BLOOD (SST-SERUM) [facility] May 07, 2023 12:00 AM Laboratory - Chemi stry Order LIVER FUNCTION BLOOD (SST-SERUM) [facility] May 07, 2023 12:00 AM Laboratory - Chemi stry Order CBC AND DIFF (AUTO) BLOOD (LAV-BLOOD) [facility] May 07, 2023 12:00 AM Laboratory - Chemi stry Order HEMOGLOBIN A1C PANEL BLOOD (LAV-BLOOD) [facility] May 07, 2023 12:00 AM Laboratory - Chemi stry Order TSH BLOOD (SST-SERUM) [facility] Jun 01, 2023 12:00 AM Laboratory - Chemi stry Order DRUGS OF ABUSE URINE (DRUG) [facility] Social History: Smoking Status (Most current) and Tobacco Use (All prior to encounter date) This section includes the most current, and the historical, smoking and tobacco- related health factors from the [place] facility where the Encounter took place. Current Smoking Status This section includes the most current smoking, or tobacco-related health factor, from the [place] facility where the Encounter took place. Date/Time Current Smoking Status Comment Stanislaw fox Sep 03, 2022 08:30 AM VA-TOBACCO NEVER USED [place] Encounter Notes: All associated encounter notes This [...] minimal in good control Assessment: Has completed [employer] school in [place]- He states that he enjoys school but not the travel Mood improved some - no hx of S/I or H/I He is followed by [facility] for counseling - marriage is stable. he [...] this patient. I asked the patient call [phone] ([facility]) or to come to open access if [...] this VA (local) and dispensed from another [place] or [place] facility (remote) as well as [...]
--- OUTSIDE RECORDS SUMMARY | 2024-03-06 09:49 | XMS_ITS | Encounter Summary ---
Author Name [facility] [place] Organization [facility] [place] Address [address] [place] [address] Care Team Providers Care Postmaster Relief Name Role Phone ROSANNA SANTILLAN Primary Care [...] PRESCRIPT ION RX Apr 20, 2022 [facility] [id number] [phone] EVA VARGAS PATIENT FAMILY HEALTH PLAN KVNG BROWNLEE GAMA CHAPMAN E Apr 20, 2022 [facility] [id number] [phone] EVA VARGAS PATIENT Selected Encounter This section includes the information on record at [place] for the Encounter. Date/Time Encounter Type Encounter [...] care activities for the patient from all [place] treatmentfacilities. This section includes future appointments and future orders which are active, pending or scheduled. Future Appointments This section includes appointments that were scheduled to occur 6 months from the date of the Encounter, up to a maximum of 20 appointments. The data comes from all [place] treatment facilities. Appointment Date/Time Appointment Type Appointme nt Facility Name Jan 25, 2024 08:30 AM AMBULATORY - PSYCHIATRY [facility] Social History: Smoking Status (Most current) and Tobacco Use (All prior to encounter date) This section includes the most current, and the historical, smoking and tobacco- related health factors from the [place] facility where the Encounter took place. Current Smoking Status This section includes the most current smoking, or tobacco-related health factor, from the [place] facility where the Encounter took place. Date/Time Current Smoking Status Comment Facil itk[facility] Oct 26, 2023 08:30 AM [place]-TOBACCO NEVER USED [place] Tobacco Use History This section includes a history of the smoking, or tobacco-related health factors, that were collected on or before the date of the Encounter. The data comes from the [place] facility where the Encounter took place. 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 some - no hx of S/I or H/I He is followed by [facility] for counseling - going through divorce [...] this patient. I asked the patient call [phone] ([facility]) or to come to open access [...] this VA (local) and dispensed from another [place] or [place] facility (remote) as well as [...]
--- OUTSIDE RECORDS SUMMARY | 2024-03-06 09:49 | XMS_ITS ---
Author Name [facility] [place] [place] Organization [facility] [place] Address [address] [place] [address] Care Team Providers Care Cook Station Name Role Phone ROSANNA SANTILLAN Primary Care [...] PRESCRIPT ION RX Apr 20, 2022 [facility] [id number] EVA VARGAS PATIENT FAMILY HEALTH PLAN TORI Aguayo Apr 20, 2022 [id number] EVA VARGAS PATIENT Selected Encounter This section includes the information on record at [place] for the Encounter. Date/Time Encounter Type Encounter Description Reason Pro vider Source Aug 18, 2023 09:12 AM Outpatient Encounter ADMIN PAT ACTIVTIES (MASNONCT) [facility] Encounter Template Text not used by [place] Plan of Treatment: Future Appointments (+ 6 [...] 20 appointments. The data comes from all [place] treatment facilities. Appointment Date/Time Appointment Type Appointme nt Facility Name Oct 26, 2023 08:30 AM AMBULATORY - PSYCHIATRY [facility] Jan 25, 2024 08:30 AM AMBULATORY - PS[facility]CHIATRY [facility] Encounter Notes: All associated encounter notes [...] Patient Name: EVA VARGAS Patient Primary Phone: [phone] Patient Primary Address: [address] [place], [place] [id number] Patient : 1985 Patient Age: 37 Caller/Recipient Relation to Patient: Self Administrative Administrative Note Reason: Medication Renewal [place] Medications Refill/Renewal Request: BUPROPION HCL 150MG 12HR SA TAB SILDENAFIL CITRATE 100MG TAB Administrative Note Comments: He will not get it by mail in time and would like to picker packer tomorrow. /renita/ TONE FRANCES VISN1 [facility] AMSA Signed: 08/18/2023 09:12 Receipt Acknowledged By: 08/24/2023 10:29 /es/ ANDREA CARBONE LPN LPN 08/22/2023 09:33 /es/ Elizabeth Mosqueda, RN Registered Nurse for [facility]
--- OUTSIDE RECORDS SUMMARY | 2024-03-06 09:49 | XMS_ITS ---
Author Name [facility] [place] [facility] [place] Organization [facility] [place] Address [address] [place] [address] Care Team Providers Care Sales Representative Supervisor Name Role Phone ROSANNA SANTILLAN Primary [...] PRESCRIPT ION RX Apr 20, 2022 [facility] [id number] [phone] EVA VARGAS PATIENT [facility] HEALTH PLAN TORI Aguayo Apr 20, 2022 [id number] EVA VARGAS PATIENT Selected Encounter This [...] 20 appointments. The data comes from all [place] treatment facilities. Appointment Date/Time Appointment Type Appointme nt Facility Name Oct 26, 2023 08:30 AM AMBULATORY - PS[facility]CH[facility]RY [facility] Jan 25, 2024 08:30 AM AMBULATORY - PS[facility]CHIATRY [facility] Encounter Notes: All associated encounter [...] COSIGNER: URGENCY: STATUS: COMPLETED Date: Jul Division: [facility] referred by Pharmacy Call Center for medication renewal: Non-controlled/maintenan ce medication Medications requested: [id number] BUPROPION HCL 150MG 12HR SA TAB Defer to primary care provider , Defer to specialty clinic To be mailed . Please review and renew if appropriate. *This note was generated by [facility]/[place] Pharmacy Customer Care. If you have any questions or need assistance, do not contact this author. Please refer all questions to your local, on-site pharmacy departments. /renita/ MARI ALFORD CPhT [facility], [place]/Pharmacy Customer Care Signed: 08/12/2023 21:59 Receipt Acknowledged By: 08/16/2023 15:05 /renita/ Monroe Villaseñor APRN, STAFF CLINICAL NURSE SPECIALIST [facility]
--- OUTSIDE RECORDS SUMMARY | 2024-03-06 09:49 | XMS_ITS | Encounter Summary ---
Author Name [facility] of [facility] ([place] Organization [place] Address [address] [place] [address] Care Team Providers Care Family Lawyer Name Role Phone ROSANNA SANTILLAN Primary Care [...] PRESCRIPT ION RX Apr 20, 2022 THPRX [id number] [phone] EVA VARGAS PATIENT FAMILY HEALTH PLAN KVNG BROWNLEE GAMA CHAPMAN E Apr 20, 2022 [facility] [id number] [phone] EVA VARGAS PATIENT Selected Encounter This section includes the information on record at [place] for the Encounter. Date/Time Encounter Type Encounter Description Reason Provider Source Jul 27, 2023 03:30 PM OFFICE O/P EST LOW 20 MIN [facility] - IND ICD-10-CM F43.10 Post-traumatic stress disorder, unspecified MONROE ROYAL IHDede Encounter Template Text not used by VA Assessments - Encounter Diagnoses This section includes the primary and secondary diagnoses documented for the Encounter. Date/Time Primary/Secondary Diagnosis Diagnosis Name Provider Source Jul 27, 2023 03:45 PM PRIMARY Post-traumatic stress disorder, unspecified MONRO[place] ROYAL [place] Plan of Treatment: Future Appointments (+ 6 months) and Future Tests (+/- 45 days) The Plan of Treatment section includes future care activities for the [facility] This section includes future appointments [...] AM AMBULATORY - PSYCHIATRY [facility] Jan 25, 2024 08:30 AM AMBULATORY - PSYCHIATRY [facility] Social History: Smoking Status (Most current) and Tobacco Use (All prior to encounter date) This section includes the most current, and the historical, smoking and tobacco- related health factors from the [place] facility where the Encounter took place. Current Smoking Status This section includes the most current smoking, or tobacco-related health factor, from the [place] facility where the Encounter took place. Date/Time Current Smoking Status Comment Facil dominique Sep 03, 2022 08:[address]-TOBACCO NEVER USED [place] Encounter Notes: All associated encounter notes This section contains the clinical notes associated to the Encounter. Date/Time Encounter Note(s) Provider Source Jul 27, 2023 03:21 PM CLINICAL NURSE SPE CIALIST NOTE: LOCAL TITLE: CLINICAL NURSE SPECIALIST/MENTAL HEALTH STANDARD TITLE: CLINICAL NURSE SPECIALIST NOTE DATE OF NOTE: JUL 27, 2023@15:21 ENTRY DATE: JUL 27, 2023@15:21:32 AUTHOR: MONROE ROYAL EXP COSIGNER: URGENCY: STATUS: COMPLETED Dx PTSD , TBI medication management 22 min Active Outpatient Medications (including Supplies): Active Non-VA [...] minimal in good control Assessment: Has completed [employer] school in [place]- He states that he enjoys school. Mood is stable. some - no hx of S/I or H/I He is followed by [facility] for counseling - going through divorce process - amicable . They they have two children 13,10 will have joint custody.. Labs/Radiology/Tests/Consultation _ none ordered __ obtained: labs not available in community Plan: Discussed reducing Venlafaxine to 75 mg SA last visit ( may help with ED) however had to return to 150mg because he felt out of it Suggested that he slowly decrease to 75 mg on a trial basis. Continue Bupropion 300mg SA daily- he states that it did help and did help with some of the sexual side effects D/C Mirtazapine 7.5 mg at hs for sleep no longer taking it He will monitor for mood. Rt 12 [...] this patient. I asked the patient call [phone] ([facility]) or to come to open access if needed Medication Reconciliation: Outpatient: Has the patient been taking medications as documented in the EMLR? YES: The patient has been taking medications as documented in the EMLR. Essential Medication List for Review used to complete this medication reconciliation. INCLUDED IN THIS LIST: Alphabetical list of active outpatient prescriptions dispensed from this CT (local) and dispensed from another CT or DoD facility (remote) as well as [...] Royal APRN, STAFF CLINICAL NURSE SPECIALIST Signed: 07/27/2023 15:45 MONROE ROYAL [place]
--- OUTSIDE RECORDS SUMMARY | 2024-03-06 09:49 | XMS_ITS ---
Author Name [facility] [place] Organization [place] Address [address] [place] [address] Care Team Providers Care Tracer Lathe Set Up Operator Name Role Phone ROSANNA SANTILLAN Primary [...] PRESCRIPT ION RX Apr 20, 2022 THPRX [id number] EVA VARGAS PATIENT FAMILY HEALTH PLAN KVNG Aguayo Apr 20, 2022 [id number] [phone] EVA VARGAS PATIENT Selected Encounter This section includes the information on record at [place] for the Encounter. Date/Time Encounter Type Encounter Description Reason Pro vider Source May 25, 2023 10:44 AM [facility] En[facility] Template Text not used by [place] Plan of Treatment: Future Appointments (+ 6 [...] 01, 2023 02:30 PM AMBULATORY - PSYCHIATRY [facility] Jul 27, 2023 03:30 PM AMBULATORY - PSYCHIATRY [facility] Oct 26, 2023 08:30 AM AMBULATORY - PSYCHIATRY [facility] Active, Pending, and Scheduled [...] Order BASIC METABOLIC PANEL (fasting) BLOOD (SST-SERUM) [facility] May 07, 2023 12:00 AM Laboratory - Chemi stry Order LIPID PANEL FASTING BLOOD (SST-SERUM) [facility] May 07, 2023 12:00 AM Laboratory - Chemi stry Order LIVER FUNCTION BLOOD (SST-SERUM) [facility] May 07, 2023 12:00 AM Laboratory - Chemi stry Order CBC AND DIFF (AUTO) BLOOD (LAV-BLOOD) [facility] May 07, 2023 12:00 AM Laboratory - Chemi stry Order HEMOGLOBIN A1C PANEL BLOOD (LAV-BLOOD) [facility] May 07, 2023 12:00 AM Laboratory - Chemi stry Order TSH BLOOD (SST-SERUM) [facility] Jun 01, 2023 12:00 AM Laboratory - Chemi stry Order DRUGS OF ABUSE URINE (DRUG) [facility] Encounter Notes: All associated encounter notes This section contains the clinical notes associated to the Encounter. Date/Time Encounter Note(s) Provider Source May 25, 2023 10:44 AM LETTERS: LOCAL TITLE: PATIENT LETTER (B) STANDARD TITLE: LETTERS DATE OF NOTE: MAY 25, 2023@10:44 ENTRY DATE: MAY 25, 2023@10:44:27 AUTHOR: LUDIVINA ORELLANA COSIGNER: URGENCY: STATUS: [place] [address] EVA VARGAS [address] [place] [id number] Dear EVA VARGAS We have attempted to reach you by phone but have been unable to reach you. We are waiting to speak with you at your earliest convenience. If you are not interested at this time, please let us know. Please call us within 14 days of this letter or we will assume you are no longer interested in this service. We look forward to hearing from you soon. Sincerely, Matt Ellis, Ph.D. Neuropsychology Postdoctoral Resident [facility] [address] [place] [id number] LUDIVINA ORELLANA [facility] ([id number])
--- OUTSIDE RECORDS SUMMARY | 2024-03-06 09:49 | XMS_ITS | Encounter Summary ---
Author Name Department of [place] Organization Department of [place] Address [address] [place] [address] Care Team Providers Care Telecommunication Tower Technician Name Role Phone ROSANNA SANTILLAN Primary Care [...] PRESCRIPT ION RX Apr 20, 2022 THPRX [id number] ALICIA EVA PATIENT FAMILY HEALTH PLAN TORI Aguayo Apr 20, 2022 [facility] [id number] 05 EVA VARGAS PATIENT Selected Encounter This section includes the information on record at [place] for the Encounter. Date/Time Encounter Type Encounter Description Reason Provider Source Jan 25, 2024 08:30 AM CASE MANAGEMENT [facility] - IND ICD-10-CM F32.A Depression, unspecified SABAS BLANC Dede Encounter Template Text not used by [place] Assessments - Encounter Diagnoses This section includes the primary and secondary diagnoses documented for the Encounter. Date/Time Primary/Secondary Diagnosis Diagnosis Name Provider Source Feb 24, 2024 10:44 AM PRIMARY Depression, unspecified BOZENA BLANC Feb 24, 2024 10:44 AM SECONDARY Post-traumatic stress disorder, unspecified BOZENA BLANC JOSE Plan of Treatment: Future Appointments (+ 6 months) and Future Tests (+/- 45 days) The Plan of Treatment section includes future care activities for the patient from all [place] treatmentfacilities. This section includes future appointments and future orders which are active, pending or scheduled. Future Appointments This section includes appointments that were scheduled to occur 6 months from the date of the Encounter, up to a maximum of 20 appointments. The data comes from all [place] treatment facilities. Appointment Date/Time Appointment Type Appointme nt Facility Name Apr 25, 2024 08:30 AM AMBULATORY - PSYCHIATRY [facility] May 11, 2024 09:00 AM AMBULATORY - MEDICINE [facility] Social History: Smoking Status (Most current) and Tobacco Use (All prior to encounter date) This section includes the most current, and the historical, smoking and tobacco- related health factors from the [place] facility where the Encounter took place. Current Smoking Status This section includes the most current smoking, or tobacco-related health factor, from the [place] facility where the Encounter took place. Date/Time Current Smoking Status Comment Facil ity Oct 26, 2023 08:30 AM [place]-TOBACCO NEVER USED [place] Tobacco Use History This section includes a history of the smoking, or tobacco-related health factors, that were collected on or before the date of the Encounter. The data comes from the [place] facility where the Encounter took place. Date/Time Smoking Status/Tobacco Use Comment [place] Sep 03, 2022 08:30 AM [place]-TOBACCO NEVER USED [place] Encounter Notes: All associated encounter notes This section contains the clinical notes associated to the Encounter. Date/Time Encounter Note(s) Provider Source Feb 24, 2024 10:40 AM MEDICATION MGT NOT E: LOCAL TITLE: OUTPATIENT MEDICATION REQUEST STANDARD TITLE: MEDICATION MGT NOTE DATE OF NOTE: FEB 24, 2024@10:40 ENTRY DATE: FEB 24, 2024@10:40:37 AUTHOR: BOZNEA BLANC EXP COSIGNER: URGENCY: STATUS: COMPLETED OUTPATIENT MEDICATION REQUEST Has ADDENDA Medication Request Date of Request: Jan Is this a New Medication? No Please renew the following medication for mail, reports he is almost out. Thank you. BUPROPION HCL 150MG 12HR SA TAB - last fill 11/25/2023 60day supply. Active and Recently Outpatient Medications (including Supplies): Active Outpatient Medications Status ====== 1) BUPROPION HCL 150MG 12HR SA TAB TAKE TWO TABLETS BY MOUTH ACTIVE EVERY MORNING Indication: FOR DEPRESSION 2) BUSPIRONE HCL 5MG TAB TAKE ONE TABLET BY MOUTH TWICE DAILY ACTIVE Indication: FOR ANXIETY 3) SILDENAFIL CITRATE 100MG TAB TAKE ONE TABLET BY MOUTH ONCE ACTIVE DAILY TAKE 1 HOUR PRIOR TO SEXUAL ACTIVITY Indication: FOR ERECTILE DYSFUNCTION Active Non-VA Medications Status ====== 1) Non-VA HYDROXYZINE HCL 25MG TAB 100MG BY MOUTH AT BEDTIME ACTIVE 2) Non-VA TOPIRAMATE 50MG TAB 50MG BY MOUTH ONCE DAILY ACTIVE 5 Total Medications The following actions were performed: PACT Team RN and Provider added as additional Signers to this request *Please let patient know that this request may take up to 72 hours to process.* /renita/ BOZENA BLANC MSN, RN, CNL MENTAL HEALTH NURSE TRAIN CONDUCTOR Signed: 02/24/2024 10:44 Receipt Acknowledged By: 02/28/2024 11:26 /es/ Monroe Villaseñor APRN, STAFF CLINICAL NURSE SPECIALIST 02/24/2024 ADDENDUM STATUS: COMPLETED I am providing coverage. I reviewed Monroe's last note. I will provide a refill of bupropion as requested. /renita/ GERARD ZIMMER DO Psychiatrist Signed: 02/24/2024 14:08 BOZENA BLANC
== END 2024-03-06 09:10 | disposition home or self-care (01) ==
LOC: HO.BBR 09:09
PROVIDERS: PCP Nurse Practitioner; Visit Provider Internal Medicine Endocrinology, Diabetes & Metabolism
DX: D75.1 Secondary polycythemia (principal)
CPT/HCPCS: 85014; 85018; 99195

== ENCOUNTER 2024-04-03 08:49 | Outpatient (REF) | payer OTHER, SELFPAY | END 2024-04-03 08:50 | disposition home or self-care (01) | LOC: HO.BBR 08:49 | PROVIDERS: Visit Provider Internal Medicine Endocrinology, Diabetes & Metabolism | DX: D75.1 Secondary polycythemia (principal) | CPT/HCPCS: 85014; 85018; 99195 ==

== ENCOUNTER 2024-05-01 08:08 | Outpatient (REF) | payer OTHER, SELFPAY ==
--- OUTSIDE RECORDS SUMMARY | 2024-05-01 08:14 | XMS_ITS | Encounter Summary ---
Author Name [facility] [place] Address [address] [place] [address] Care Team Providers Care Flat Hammerer Name Role Phone ROSANNA SANTILLAN Primary Care [...] PRESCRIPT ION RX Apr 20, 2022 THPRX [id number] [phone] EVA VARGAS PATIENT [facility] HEALTH PLAN TORI Aguayo Apr 20, 2022 [facility] [id number] [phone] EVA VARGAS PATIENT Selected Encounter This section includes the information on record at [place] for the Encounter. Date/Time Encounter Type Encounter Description Reason Provider Source Apr 06, 2024 12:30 PM [facility] OL DIG ASSMT&MGMT 5-10 CLINICAL PHARMACY ICD-10-CM N52.9 Male erectile dysfunction, unspecified CASANDRA ORTEGA IHE Encounter Template Text not used by VA Assessments - Encounter Diagnoses This section includes the primary and secondary diagnoses documented for the Encounter. Date/Time Primary/Secondary Diagnosis Diagnosis Name Provider Source Apr 06, 2024 01:13 PM PRIMARY Male erectile dysfunction, unspecified YOVANI ORTEGA [place] Plan of Treatment: Future Appointments (+ 6 months) and Future Tests (+/- 45 days) The Plan of Treatment section includes future care activities for the patient from [facility] [place] [facility] This section includes future appointments and future orders which are active, pending or scheduled. Future Appointments This section includes appointments that were scheduled to occur 6 months from the date of the Encounter, up to a maximum of 20 appointments. The data comes from all [place] treatment facilities. Appointment Date/Time Appointment Type Appointme nt Facility Name Apr 25, 2024 08:30 AM AMBULATORY - PSYCHIATRY [facility] Jun 02, 2024 09:30 AM AMBULATORY - MEDICINE [facility] Active, Pending, and [...] of theEncounter. The data comes from all [facility] facilities. Test Date/Time Test Type Test Details Facility Name May 04, 2024 12:00 AM Laboratory - Chemi stry Order BASIC METABOLIC PANEL (fasting) BLOOD (SST-SERUM) [facility] Lab Results: +/- 30 days of the encounter This section includes the Chemistry and Hematology Lab Results on record with [place] for the patient. Radiology Reports and Pathology Reports are provided separately, in subsequent sections. Lab Results This section contains the Chemistry/Hematology Results that were resulted 30 days before or 30 daysafter the date of the Encounter. Date/Time Source Result Type Result - Unit Interpretation Reference Range Comment Apr 24, 2024 11:16 AM [place] URINALYSIS Specimen Type: URINE Comment: If Glucose = >500 and Ketones are positive, please alert the Physician. Ordering Provider: AMMY MCCARTNEY Report Released Date/Time: Apr 06, 2024 12:53 PM Reporting Lab: [address] [address] Performing Lab: [address] [address] UA COLOR Light-Yellow Yellow UA APPEARANCE Turbid Clear UA GLUCOSE Normal mg/dL Negative UA KETONES NEGATIVE mg/dL Negative UA BLOOD NEGATIVE mg/dL Negative UA PROTEIN NEGATIVE mg/dL Negative UA NITRITE NEGATIVE mg/dL Negative UA BILIRUBIN NEGATIVE mg/dL Negative UA SPECIFIC GRAVITY 1.015 L 1.016-1.022 UA pH 8.0 5.0-9.0 UA UROBILINOGEN Normal mg/dL <2.0 UA LEUKOCYTE NEGATIVE Negative Apr 24, 2024 11:16 AM [place] MICROALBUMIN CREATININE RATIO PANEL Spe cimen Type: URINE No comment entered. Ordering Provider: AMMY MCCARTNEY Report Released Date/Time: Apr 06, 2024 12:53 PM Reporting Lab: [address] [address] Performing Lab: [address] [address] MICROALBUMIN/C REATININE RATIO canc mg/g 0-29.9 MICROALBUMIN,Q UANTITATIVE < 0.5 mg/dL RR UNAVAIL CREATININE URINE 92.73 mg/dL Apr 24, 2024 11:16 AM [place] MICROSCOPIC AUTOMATED, URINE Specimen Type: URINE Comment: If Glucose = >500 and Ketones are positive, please alert the Physician. Ordering Provider: AMMY MCCARTNEY Report Released Date/Time: Apr 06, 2024 12:53 PM Reporting Lab: [facility] [address] [facility] [address] Performing Lab: [address] [address] UA RBC 0-2 /[HPF] 0-3 UA AMORPHOUS CRYSTALS MODERATE /[HPF] Not Established Apr 24, 2024 11:06 AM [place] BASIC METABOLIC PANEL (fasting) Specime n Type: SERUM No comment entered. Ordering Provider: ROSANNA VALERIO Report Released Date/Time: Apr 07, 2024 09:00 AM Reporting Lab: [facility] [address] [facility] [address] Performing Lab: [address] [address] UREA NITROGEN 9 mg/dL 7-25 GLUCOSE 105 mg/dL H 65-100 SODIUM 139 mmol/L 135-145 POTASSIUM 4.2 mmol/L 3.5-5.0 CHLORIDE 104 mmol/L 100-110 CO2 27 meq/L 20-30 CALCIUM 9.5 mg/dL 8.5-10.2 CREATININE, Serum 1.14 mg/dL 0.50-1.40 eGFR(CKD-EPI 2020) 84 mL/min >60 Apr 24, 2024 11:06 AM [place] LIPID PANEL FASTING Specimen Type: SERUM No comment entered. Ordering Provider: ROSANNA VALERIO Report Released Date/Time: Apr 07, 2024 09:00 AM Reporting Lab: [address] [address] Performing Lab: [address] [address] CHOLESTEROL 201 mg/dL H TRIGLYCERIDE 86 mg/dL 0-150 LDL calculated 132 mg/dL H 0-129 CHOL/HDL 3.9 HDL CHOLESTEROL 52 mg/dL 40-60 Apr 24, 2024 11:06 AM [place] LIVER FUNCTION Specimen Type: SERUM No comment entered. Ordering Provider: ROSANNA VALERIO Report Released Date/Time: Apr 07, 2024 09:00 AM Reporting Lab: [address] [address] Performing Lab: [address] [address] PROTEIN,TOTAL 7.0 g/dL 6.0-8.3 ALBUMIN 3.8 g/dL 3.5-5.0 ALKALINE PHOSPHATASE 58 U/L 40-150 AST 26 U/L 5-34 ALT 35 U/L BILIRUBIN, TOTAL 0.6 mg/dL 0.2-1.2 Apr 24, 2024 11:06 AM [place] CBC AND DIFF (AUTO) Specimen Type: BLOOD No comment entered. Ordering Provider: ROSANNA VALERIO Report Released Date/Time: Apr 07, 2024 09:00 AM Reporting Lab: [address] [address] Performing Lab: [address] [place] [address] WBC 5.41 10*3/uL 4.50-11.00 RBC 5.55 10*6/uL 4.23-5.66 HGB 17.7 g/dL H 12.8-17 HCT 52.8 H 39.2-50.4 MCV 95.1 fL 82-99 MCHC 33.5 g/dL 30.8-35.1 PLT 221 10*3/uL 140-360 RDW-CV 12.6 12.0-16.0 MONO, ABS 0.61 10*3/uL 0.30-1.10 MCH 31.9 pg 26.2-32.6 NEUT % 51.5 43.7-75.8 LYMPH % 33.5 14.0-42.3 MONO % 11.3 5.1-13.7 EOS % 1.5 0.4-6.8 BASO % 1.1 0.1-2.0 NEUT, ABS 2.79 10*3/uL 2.20-7.60 LYMPH, ABS 1.81 10*3/uL 1.00-3.20 EOS, ABS 0.08 10*3/uL 0.03-0.44 BASO, ABS 0.06 10*3/uL 0.01-0.13 IMMATURE GRAN % 1.1 H 0.0-0.7 IMMATURE GRAN, ABS 0.06 10*3/uL 0.00-0.06 NRBC % 0.0 0.0-0.0 NRBC, ABS 0.00 10*3/uL 0.00-0.00 Apr 24, 2024 11:06 AM [place] HEMOGLOBIN A1C PANEL Specimen Type: BLOOD Comment: Values obtained from A1C measurements can vary. For atypical A1C assays, a reported value of 7.0 could actually be between 6.72 and 7.28 if measured by a reference method. A reported value of 9.0 could actually be between 8.73 and 9.27. Ref: http://www.ng sp.org/CAPdat a.asp Ordering Provider: ROSANNA VALERIO Report Released Date/Time: Apr 07, 2024 09:00 AM Reporting Lab: [facility] [address] [address] Performing Lab: [facility] [address] [facility] [address] HEMOGLOBIN A1C 4.6 4.0-5.6 Apr 24, 2024 11:06 AM [place] TSH Specimen Type: SERUM No comment entered. Ordering Provider: ROSANNA VALERIO Report Released Date/Time: Apr 07, 2024 09:00 AM Reporting Lab: [facility] [address] [facility] [address] Performing Lab: [facility] [address] [facility] [address] TSH 1.10 u[IU]/mL 0.35-5.00 Vital Signs: All taken on the encounter date This section contains inpatient and outpatient Vital Signs collected on the date of the Encounter. Date/Time Temperature Pulse Blood Pressure Respiratory Rate SP02 Pain Height Weight Body Mass Index Source Apr 06, 2024 12:38 PM 65 138/88 99 68 219 33 [facility] Social History: Smoking Status [...] Facil ity Oct 26, 2023 08:30 AM [place]TO[place] NEVER USED [place] Tobacco Use History This section includes a history of the smoking, or tobacco-related health factors, that were collected on or before the date of the Encounter. The data comes from the [place] facility where the Encounter took place. Date/Time Smoking Status/Tobacco Use Comment F acility Sep 03, 2022 08:30 AM [place]-TOBACCO NEVER USED [place] Encounter Notes: All associated encounter notes This section contains the clinical notes associated to the Encounter. Date/Time Encounter Note(s) Provider Source Apr 06, 2024 01:16 PM ADDENDUM: LOCAL TITLE: Addendum STANDARD TITLE: ADDENDUM DATE OF NOTE: APR 06, 2024@13:16:31 ENTRY DATE: APR 06, 2024@13:16:32 AUTHOR: ORTEGA,YOVANI A EXP COSIGNER: URGENCY: STATUS: COMPLETED pt will be seeing pcp in April will alert RN to kindly place labs to repeat i.e. BMP thank octaviano /antonia ORTEGA CLINICAL PATROL SERGEANT Signed: 04/06/2024 13:16 Receipt Acknowledged By: 04/07/2024 09:15 /renita/ ANDREA CARBONE, [facility] --- Original Document --- 04/06/24 CONSULT REPORT/PRIOR AUTH FACILITY PADR: The medical record has been reviewed with regard to this restricted drug request. Medication requested: TADALAFIL 20MG TAB Medication indication: ED Medical history relevant to this request: tried viagra waoarked in the begining now not any more pt was trialed on max dose of sildenafil The request is approvedFOR PRN USE - A documented therapeutic failure of the preferred formulary alternative(s) exists Comment: failure on sildenafil max dose - No formulary-preferred lydia /antonia ORTEGA CLINICAL PATROL SERGEANT Signed: 04/06/2024 13:14 YOVANI ORTEGA Apr 06, 2024 01:12 PM PHARMACY CONSULT: LOCAL TITLE: CONSULT REPORT/PRIOR AUTH FACILITY PADR STANDARD TITLE: PHARMACY CONSULT DATE OF NOTE: APR 06, 2024@13:12 ENTRY DATE: APR 06, 2024@13:12:39 AUTHOR: YOVANI ORTEGA EXP COSIGNER: URGENCY: STATUS: COMPLETED CONSULT REPORT/PRIOR AUTH FACILITY PADR Has ADDENDA The medical record has been reviewed with regard to this restricted drug request. Medication requested: TADALAFIL 20MG TAB Medication indication: ED Medical history relevant to this request: tried viagra waoarked in the begining now not any more pt was trialed on max dose of sildenafil The request is approvedFOR PRN USE - A documented therapeutic failure of the preferred formulary alternative(s) exists Comment: failure on sildenafil max dose - No formulary-preferred alternative /renita/ YOVANI ORTEGA CLINICAL PATROL SERGEANT Signed: 04/06/2024 13:14 04/06/2024 ADDENDUM STATUS: COMPLETED pt will be seeing pcp in April will alert RN to kindly place labs to repeat i.e. BMP thank you /antonia ORTEGA CLINICAL PATROL SERGEANT Signed: 04/06/2024 13:16 Receipt Acknowledged By: * AWAITING SIGNATURE * ANDREA CARBONE IZABELA A [place]
--- OUTSIDE RECORDS SUMMARY | 2024-05-01 08:14 | XMS_ITS | Continuity of Care Document ---
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 Performing [facility]: [facility] [address] [address] [place] BASIC METABOLI C PANEL (fasting ) POTASSIUM [MOLES/VOL UME] IN SERUM OR PLASMA 4.2 mmol/L 3.5 - 5.0 04/24 Specimen Type: SERUM No comment entered. Ordering Provider: MARQUEZ DIAZ Report Released Date/Time: Apr 07, 2024 09:00 AM Reporting Lab: [facility] [address] [address] Performing Lab: [facility]RM[facility]THN [facility] [address] [address] [place] BASIC METABOLI C PANEL (fasting ) CHLORIDE [MOLES/VOL UME] IN SERUM OR PLASMA 104 mmol/L 100 - 110 04/24 Specimen Type: SERUM No comment entered. Ordering Provider: MARQUEZ DIAZ Report Released Date/Time: Apr 07, 2024 09:00 AM Reporting Lab: [facility]ITALRUNITED [facility]TR[facility] [address] [address] Performing Lab: [facility] [address] [place] BASIC METABOLI C PANEL (fasting ) CARBON DIOXIDE, TOTAL [MOLES/VOL UME] IN SERUM OR PLASMA 27 meq/L 20 - 30 04/24 Specimen Type: SERUM No comment entered. Ordering Provider: MARQUEZ DIAZ Report Released Date/Time: Apr 07, 2024 09:00 AM Reporting Lab: [facility]ITALRUNITED [facility] HOSPITALTRN [facility] [address] Performing Lab: [facility]ITALRL TRN [facility] [address] [place] BASIC METABOLI C PANEL (fasting ) CALCIUM [MASS/VOLU ME] IN SERUM OR PLASMA 9.5 mg/dL 8.5 - 10.2 04/24 Specimen Type: SERUM No comment entered. Ordering Provider: MARQUEZ DIAZ Report Released Date/Time: Apr 07, 2024 09:00 AM Reporting Lab: [facility]ITALRUNITED [facility] MARINE HOSPITALTRN [facility] [address] Performing Lab: [facility]ITALRUNITED [facility]PITALTRN [facility] [address] [place] BASIC METABOLI C PANEL (fasting ) CREATININE [MASS/VOLU ME] IN SERUM OR PLASMA 1.14 mg/dL 0.50 - 1.40 04/24 Specimen Type: SERUM No comment entered. Ordering Provider: MARQUEZ DIAZ Report Released Date/Time: Apr 07, 2024 09:00 AM Reporting Lab: [facility] [address] [address] Performing Lab: [address] [address] [place] BASIC METABOLI C PANEL (fasting ) GLOMERULAR FILTRATION RATE/1.73 SQ M.PREDICTE D [VOLUME RATE/AREA] IN SERUM, PLASMA OR BLOOD BY CREATININE -BASED FORMULA (CKD-EPI 2020) 84 mL/min 60 04/24 Specimen Type: SERUM No comment entered. Ordering Provider: MARQUEZ DIAZ Report Released Date/Time: Apr 07, 2024 09:00 AM Reporting Lab: [address] [address] Performing Lab: [address] [address] [place] LIPID PANEL FASTING CHOLESTERO L [MASS/VOLU ME] IN SERUM OR PLASMA 201 mg/dL 04/24 H Specimen Type: SERUM No comment entered. Ordering Provider: MARQUEZ DIAZ Report Released Date/Time: Apr 07, 2024 09:00 AM Reporting Lab: [facility] [address] [address] Performing Lab: [address] [address] [place] LIPID PANEL FASTING TRIGLYCERI DE [MASS/VOLU ME] IN SERUM OR PLASMA 86 mg/dL 0 - 150 04/24 Specimen Type: SERUM No comment entered. Ordering Provider: MARQUEZ DIAZ Report Released Date/Time: Apr 07, 2024 09:00 AM Reporting Lab: [facility] [place] [facility] [address] [address] Performing Lab: [facility] [address] [address] [place] LIPID PANEL FASTING CHOLESTERO L IN LDL [MASS/VOLU ME] IN SERUM OR PLASMA BY CALCULARUFINA N 132 mg/dL 0 - 129 04/24 H Specimen Type: SERUM No comment entered. Ordering Provider: MARQUEZ DIAZ Report Released Date/Time: Apr 07, 2024 09:00 AM Reporting Lab: [facility]ITAL[facility] [address] [address] Performing Lab: [facility]ITAL[facility] [address] [address] [place] LIPID PANEL FASTING CHOLESTERO L.TOTAL/CH OLESTEROL IN HDL [MASS RATIO] IN SERUM OR PLASMA 3.9 04/24 Specimen Type: SERUM No comment entered. Ordering Provider: MARQUEZ DIAZ Report Released Date/Time: Apr 07, 2024 09:00 AM Reporting Lab: [facility]ITALRL WSTRN [facility]ITALUSETS [facility] [address] [address] Performing Lab: [facility]ITAL[facility] [address] [address] [place] LIPID PANEL FASTING CHOLESTERO L IN HDL [MASS/VOLU ME] IN SERUM OR PLASMA 52 mg/dL 40 - 60 04/24 Specimen Type: SERUM No comment entered. Ordering Provider: MARQUEZ DIAZ Report Released Date/Time: Apr 07, 2024 09:00 AM Reporting Lab: [facility] [address] [address] Performing Lab: [facility] [address] [address] [place] LIVER FUNCTION PROTEIN [MASS/VOLU ME] IN SERUM OR PLASMA 7.0 g/dL 6.0 - 8.3 04/24 Specimen Type: SERUM No comment entered. Ordering Provider: MARQUEZ DIAZ Report Released Date/Time: Apr 07, 2024 09:00 AM Reporting Lab: [facility]ITALRL TRN [facility] [address] [address] Performing Lab: [facility]ITALRL [facility]N [facility] [address] [address] [place] LIVER FUNCTION ALBUMIN [MASS/VOLU ME] IN SERUM OR PLASMA 3.8 g/dL 3.5 - 5.0 04/24 Specimen Type: SERUM No comment entered. Ordering Provider: MARQUEZ DIAZ Report Released Date/Time: Apr 07, 2024 09:00 AM Reporting Lab: [facility]ITALRL TRN [address] [address] Performing Lab: [facility]PITALRMARSHALL [facility] NORTHN [address] [address] [place] ALKALINE PHOSPHATAS E [ENZYMATIC ACTIVITY/V OLUME] IN SERUM OR PLASMA 58 U/L 40 - 150 04/24 Specimen Type: SERUM No comment entered. Ordering Provider: MARQUEZ DIAZ Report Released Date/Time: Apr 07, 2024 09:00 AM Reporting Lab: [facility]ITALRL TRN [facility] [address] [address] Performing Lab: [facility]ITALRL TRN [facility]ITAL[facility] [address] [place] LIVER FUNCTION ASPARTATE AMINOTRANS FERASE [ENZYMATIC ACTIVITY/V OLUME] IN SERUM OR PLASMA 26 U/L 5 - 34 04/24 Specimen Type: SERUM No comment entered. Ordering Provider: MARQUEZ DIAZ Report Released Date/Time: Apr 07, 2024 09:00 AM Reporting Lab: [facility]ITALRL TRN [facility]USES[facility] [address] [address] Performing Lab: [facility]PITALRMARSHALL [facility] NORTHN [address] [address] [place] LIVER FUNCTION ALANINE AMINOTRANS FERASE [ENZYMATIC ACTIVITY/V OLUME] IN SERUM OR PLASMA 35 U/L 04/24 Specimen Type: SERUM No comment entered. Ordering Provider: MARQUEZ DIAZ Report Released Date/Time: Apr 07, 2024 09:00 AM Reporting Lab: [address] [address] Performing Lab: [address] [address] [place] LIVER FUNCTION BILIRUBIN. TOTAL [MASS/VOLU ME] IN SERUM OR PLASMA 0.6 mg/dL 0.2 - 1.2 04/24 Specimen Type: SERUM No comment entered. Ordering Provider: MARQUEZ DIAZ Report Released Date/Time: Apr 07, 2024 09:00 AM Reporting Lab: [address] [address] Performing Lab: [address] [address] [place] CBC AND DIFF (AUTO) LEUKOCYTES [#/VOLUME] IN BLOOD BY AUTOMATED COUNT 5.41 10*3/uL 4.50 - 11.00 04/24 Specimen Type: BLOOD No comment entered. Ordering Provider: MARQUEZ DIAZ Report Released Date/Time: Apr 07, 2024 09:00 AM Reporting Lab: [address] [address] Performing Lab: [facility] [address] [address] [place] CBC AND DIFF (AUTO) ERYTHROCYT ES [#/VOLUME] IN BLOOD BY AUTOMATED COUNT 5.55 10*6/uL 4.23 - 5.66 04/24 Specimen Type: BLOOD No comment entered. Ordering Provider: MARQUEZ DIAZ Report Released Date/Time: Apr 07, 2024 09:00 AM Reporting Lab: [address] [address] Performing Lab: [facility] [place] [facility] [address] [address] [place] CBC AND DIFF (AUTO) HEMOGLOBIN [MASS/VOLU ME] IN BLOOD 17.7 g/dL 12.8 - 17 04/24 H Specimen Type: BLOOD No comment entered. Ordering Provider: MARQUEZ DIAZ Report Released Date/Time: Apr 07, 2024 09:00 AM Reporting Lab: [facility]ITAL[facility]ETS [address] [address] Performing Lab: [facility]ITALUSETS [address] [address] [place] CBC AND DIFF (AUTO) HEMATOCRIT [VOLUME FRACTION] OF BLOOD BY AUTOMATED COUNT 52.8 39.2 - 50.4 04/24 H Specimen Type: BLOOD No comment entered. Ordering Provider: MARQUEZ DIAZ Report Released Date/Time: Apr 07, 2024 09:00 AM Reporting Lab: [facility] [place] [facility] [address] [address] Performing Lab: [facility] [place] [address] [address] [place] CBC AND DIFF (AUTO) MCV [ENTITIC VOLUME] BY AUTOMATED COUNT 95.1 fL 82 - 99 04/24 Specimen Type: BLOOD No comment entered. Ordering Provider: MARQUEZ DIAZ Report Released Date/Time: Apr 07, 2024 09:00 AM Reporting Lab: [facility] [place] [address] [address] Performing Lab: [facility]ITAL[facility]ETS [address] [address] [place] CBC AND DIFF (AUTO) MCHC [MASS/VOLU ME] BY AUTOMATED COUNT 33.5 g/dL 30.8 - 35.1 04/24 Specimen Type: BLOOD No comment entered. Ordering Provider: MARQUEZ DIAZ Report Released Date/Time: Apr 07, 2024 09:00 AM Reporting Lab: [facility] [place] [facility] [address] [address] Performing Lab: [facility] [place] [facility] [address] [address] [place] CBC AND DIFF (AUTO) PLATELETS [#/VOLUME] IN BLOOD BY AUTOMATED COUNT 221 10*3/uL 140 - 360 04/24 Specimen Type: BLOOD No comment entered. Ordering Provider: MARQUEZ DIAZ Report Released Date/Time: Apr 07, 2024 09:00 AM Reporting Lab: [facility] [place] [address] [address] Performing Lab: [facility]PITALRUNITED STATES MARINE HOSPITALTRN [facility]ITALUSE[address] [address] [place] CBC AND DIFF (AUTO) ERYTHROCYT E DISTRIBUTI ON WIDTH [RATIO] BY AUTOMATED COUNT 12.6 12.0 - 16.0 04/24 Specimen Type: BLOOD No comment entered. Ordering Provider: MARQUEZ DIAZ Report Released Date/Time: Apr 07, 2024 09:00 AM Reporting Lab: [facility]ITALRUNITED STATES MARINE HOSPITALTRN [place] [address] [address] Performing Lab: [facility]ITALRL TRN [place] [address] [address] [place] CBC AND DIFF (AUTO) MONOCYTES [#/VOLUME] IN BLOOD BY AUTOMATED COUNT 0.61 10*3/uL 0.30 - 1.10 04/24 Specimen Type: BLOOD No comment entered. Ordering Provider: MARQUEZ DIAZ Report Released Date/Time: Apr 07, 2024 09:00 AM Reporting Lab: [facility] [place] [address] [address] Performing Lab: [facility]PITALRUNITED STATES MARINE HOSPITALTRN [place] [address] [address] [place] CBC AND DIFF (AUTO) MCH [ENTITIC MASS] BY AUTOMATED COUNT 31.9 pg 26.2 - 32.6 04/24 Specimen Type: BLOOD No comment entered. Ordering Provider: MARQUEZ DIAZ Report Released Date/Time: Apr 07, 2024 09:00 AM Reporting Lab: [facility] [place] [facility] [address] [address] Performing Lab: [facility] [place] [facility] [address] [address] [place] CBC AND DIFF (AUTO) NEUTROPHIL S/100 LEUKOCYTES IN BLOOD BY AUTOMATED COUNT 51.5 43.7 - 75.8 04/24 Specimen Type: BLOOD No comment entered. Ordering Provider: MARQUEZ DIAZ Report Released Date/Time: Apr 07, 2024 09:00 AM Reporting Lab: [facility] [place] [address] [address] Performing Lab: [facility] [place] [address] [address] [place] CBC AND DIFF (AUTO) LYMPHOCYTE S/100 LEUKOCYTES IN BLOOD BY AUTOMATED COUNT 33.5 14.0 - 42.3 04/24 Specimen Type: BLOOD No comment entered. Ordering Provider: MARQUEZ DIAZ Report Released Date/Time: Apr 07, 2024 09:00 AM Reporting Lab: [facility] [place] [facility] [address] [address] Performing Lab: [facility] [place] [address] [address] [place] CBC AND DIFF (AUTO) MONOCYTES/ 100 LEUKOCYTES IN BLOOD BY AUTOMATED COUNT 11.3 5.1 - 13.7 04/24 Specimen Type: BLOOD No comment entered. Ordering Provider: MARQUEZ DIAZ Report Released Date/Time: Apr 07, 2024 09:00 AM Reporting Lab: [facility] [place] [address] [address] Performing Lab: [facility] [place] [address] [address] [place] CBC AND DIFF (AUTO) EOSINOPHIL S/100 LEUKOCYTES IN BLOOD BY AUTOMATED COUNT 1.5 0.4 - 6.8 03/03 /2025 Specimen Type: BLOOD No comment entered. Ordering Provider: MARQUEZ DIAZ Report Released Date/Time: Apr 07, 2024 09:00 AM Reporting Lab: [facility] [place] [facility] [address] [address] Performing Lab: [facility] [address] [address] [place] CBC AND DIFF (AUTO) BASOPHILS/ 100 LEUKOCYTES IN BLOOD BY AUTOMATED COUNT 1.1 0.1 - 2.0 04/24 Specimen Type: BLOOD No comment entered. Ordering Provider: MARQUEZ DIAZ Report Released Date/Time: Apr 07, 2024 09:00 AM Reporting Lab: [facility] [place] [address] [address] Performing Lab: [facility] [address] [address] [place] CBC AND DIFF (AUTO) NEUTROPHIL S [#/VOLUME] IN BLOOD BY AUTOMATED COUNT 2.79 10*3/uL 2.20 - 7.60 04/24 Specimen Type: BLOOD No comment entered. Ordering Provider: MARQUEZ DIAZ Report Released Date/Time: Apr 07, 2024 09:00 AM Reporting Lab: [facility] [place] [address] [address] Performing Lab: [facility] [place] [address] [address] [place] CBC AND DIFF (AUTO) LYMPHOCYTE S [#/VOLUME] IN BLOOD BY AUTOMATED COUNT 1.81 10*3/uL 1.00 - 3.20 04/24 Specimen Type: BLOOD No comment entered. Ordering Provider: MARQUEZ DIAZ Report Released Date/Time: Apr 07, 2024 09:00 AM Reporting Lab: [facility] [place] [address] [address] Performing Lab: [facility] [place] [address] [place] [address] [place] CBC AND DIFF (AUTO) EOSINOPHIL S [#/VOLUME] IN BLOOD BY AUTOMATED COUNT 0.08 10*3/uL 0.03 - 0.44 04/24 Specimen Type: BLOOD No comment entered. Ordering Provider: MARQUEZ DIAZ Report Released Date/Time: Apr 07, 2024 09:00 AM Reporting Lab: [facility] [address] [address] Performing Lab: [facility] W[facility]N [facility] [address] [place] CBC AND DIFF (AUTO) BASOPHILS [#/VOLUME] IN BLOOD BY AUTOMATED COUNT 0.06 10*3/uL 0.01 - 0.13 04/24 Specimen Type: BLOOD No comment entered. Ordering Provider: MARQUEZ DIAZ Report Released Date/Time: Apr 07, 2024 09:00 AM Reporting Lab: [facility] [address] [address] Performing Lab: [facility] [address] [address] [place] CBC AND DIFF (AUTO) IMMATURE GRANULOCYT ES/100 LEUKOCYTES IN BLOOD BY AUTOMATED COUNT 1.1 0.0 - 0.7 04/24 H Specimen Type: BLOOD No comment entered. Ordering Provider: MARQUEZ DIAZ Report Released Date/Time: Apr 07, 2024 09:00 AM Reporting Lab: [facility] [address] [address] Performing Lab: [facility]ITALRL WSTRN [facility]ITALUSETS [address] [address] [place] CBC AND DIFF (AUTO) IMMATURE GRANULOCYT ES [#/VOLUME] IN BLOOD BY AUTOMATED COUNT 0.06 10*3/uL 0.00 - 0.06 04/24 Specimen Type: BLOOD No comment entered. Ordering Provider: MARQUEZ DIAZ Report Released Date/Time: Apr 07, 2024 09:00 AM Reporting Lab: [address] [address] Performing Lab: [address] [address] [place] CBC AND DIFF (AUTO) NUCLEATED ERYTHROCYT ES/100 LEUKOCYTES [RATIO] IN BLOOD BY AUTOMATED COUNT 0.0 0.0 - 0.0 04/24 Specimen Type: BLOOD No comment entered. Ordering Provider: MARQUEZ DIAZ Report Released Date/Time: Apr 07, 2024 09:00 AM Reporting Lab: [address] [address] Performing Lab: [place] [address] [place] CBC AND DIFF (AUTO) NUCLEATED ERYTHROCYT ES [#/VOLUME] IN BLOOD BY AUTOMATED COUNT 0.00 10*3/uL 0.00 - 0.00 04/24 Specimen Type: BLOOD No comment entered. Ordering Provider: MARQUEZ DIAZ Report Released Date/Time: Apr 07, 2024 09:00 AM Reporting Lab: [address] [address] Performing Lab: [address] [address] [place] HEMOGLOB IN A1C PANEL HEMOGLOBIN A1C/HEMOGL OBIN.TOTAL IN BLOOD BY HPLC 4.6 4.0 - 5.6 04/24 Specimen Type: BLOOD Comment: Values obtained from A1C measurement s can vary. For atypical A1C assays, a reported value of 7.0 could actually be between 6.72 and 7.28 if measured by a reference method. A reported value of 9.0 could actually be between 8.73 and 9.27. Ref: http://www. ngsp.org/[place] Pdata.asp Ordering Provider: MARQUEZ DIAZ Report Released Date/Time: Apr 07, 2024 09:00 AM Reporting Lab: [place] [address] [facility] [address] Performing Lab: [facility]ITALRL [facility]N [place] [facility] [address] [address] [place] TSH THYROTROPI N [UNITS/VOL UME] IN SERUM OR PLASMA 1.10 u[IU]/mL 0.35 - 5.00 04/24 Specimen Type: SERUM No comment entered. Ordering Provider: MARQUEZ DIAZ Report Released Date/Time: Apr 07, 2024 09:00 AM Reporting Lab: [facility]ITAL[facility] W[facility] [place] [facility] [address] [address] Performing Lab: [facility]US[facility] [address] [address] [facility] Vital Signs Combined list of inpatient and outpatient Vital Signs from Department of Defense and Veterans Affairs, ranging from 12 months to all on record, depending upon the facility. Vital Sign Value Date Comments Source SYSTOLIC BLOOD PRESSURE 138 04/06/2024 12:38:03 [place] DIASTOLIC BLOOD PRESSURE 88 04/06/2024 12:38:03 [place] PULSE OXIMETRY 99 04/06/2024 12:38:03 [place] WEIGHT 219 04/06/2024 12:38:03 [place] BMI 33 kg/m2 04/06/2024 12:38:03 [place] HEIGHT 68 04/06/2024 12:38:03 [place] PULSE 65 04/06/2024 [facility]38[facility] SYSTOLIC BLOOD PRESSURE 116 05/07/2023 09:38:37 [place] DIASTOLIC BLOOD PRESSURE 64 05/07/2023 09:38:37 [place] PULSE OXIMETRY 97 05/07/2023 09:38:37 [place] WEIGHT 227 05/07/2023 09:38:37 [place] TEMPERATURE 97.9 05/07/2023 09:38:37 [place] PULSE 78 05/07/2023 09:38:37 [place] RESPIRATION 19 05/07/2023 09:38:37 [place] Encounters Combined list of: 1) Encounters from Department of Veterans Affairs facilities going backup to the last 18 months, not all [place] inpatient encounters are included; 2) Encounters from the Department of Defense facilities going backup to 280 months. Location Location Details Encounter Type Encounter Number Reason For Visit Attending Provider ADM Date DC Date Status Disposition Source [facility] [place]) DENTAL [id number] ARTI DARDEN 10/19 Released w/o Limitations [facility](D ental [facility] [place]) [facility](Phy s Exam [place]) TELE CONSULT [id number] BRANDON ESPINAL 11/22 [facility](P hys [facility]am [place]) [facility](Fam zena Practice [place]) OUTPATIENT [id number] migrain es/x 2 months/ sciorti no ISHA WYATT 09/09 Released w/o Limitations [facility](F amily Practic e [place]) [facility] [place]) OUTPATIENT [id number] F/U MEDS/SC ISHA HARRELL 10/11 Released w/o Limitations [facility](F amily Practic e [place]) [facility](Fam [facility]ena Practice [place]) OUTPATIENT [id number] FEVER 101.0 [facility] ED LUNGS/S CIORTIN O WESLY [facility] 12/26 Released with Work/Duty Limitations [facility](F amily Practic e [place]) [facility](PHA Cell) OUTPATIENT [id number] PHA/AF/ SCIORTI NO JOHNY CROCKETT 02/06 Released w/o Limitations [facility](P [place] Cell) [facility](Fam zena Practice [place]) TELE CONSULT [id number] Admin: CARROL Garcia 03/03 [facility](F amily Practic e [place]) [facility] [place]) OUTPATIENT [id number] BACK PAIN 08/01/SC ARTI MORAES 05/14 Released w/o Limitations [facility](F amily Practic e [place]) [place] [address](Formerly [facility]) OUTPATIENT [id number] 1000 - LT ANKLE PAIN [TDY] MARK VELÁZQUEZ 08/06 Released with Work/Duty Limitations [facility] [place] [address](T [facility], Efren d) [place] [address]([facility]) OUTPATIENT [id number] POSS L ankle sprain LESLIE GUILLEN Marcus 08/27 Released w/o Limitations [employer] [place] [address]([facility] [employer]([facility] [place]) OUTPATIENT [id number] right ankle pain/ sciorti JACKY Doty 10/17 Released w/o Limitations [employer]([facility] [place]) [employer]([facility]) OUTPATIENT [id number] ankle/r eferral BHARTI TERESA 12/18 Released with Work/Duty Limitations [facility](A [facility]) [facility]) OUTPATIENT [id number] ANKLE INJURY SKYLAR LONDONO 01/06 Released w/o Limitations [employer](A [facility]) [employer]([facility]) OUTPATIENT [id number] PHA GEORGE ORTA 03/24 Released w/o Limitations [facility](A [facility]) [facility]) OUTPATIENT [id number] UPDATE PROFILE BHARTI TERESA 05/12 Released with Work/Duty Limitations [facility](A [facility] A) [facility](Opt ometry) OUTPATIENT [id number] EYE EXAM ABELARDO JULIAN 05/20 Released w/o Limitations [facility](O ptometr y) [facility] TELE CONSULT [id number] Notes Entered by: HORACE ENGLISH 27 May 2011 1356 ------- ------- ------- ------- -- PROFILE WAS DONE WRONG SUMI RYAN 05/26 Advice Assessment [employer](A [facility] Team A) [facility] TELE CONSULT [id number] Notes Entered by: RAJAT ZHU 16 Jun 2011 1437 ------- ------- ------- ------- -- Treatme nt for STD antonyur dede BHARTI TERESA 06/15 [facility](A [facility] Team A) [facility] TELE CONSULT [id number] Notes Entered by: RAMSEY JC 26 Jun 2011 1122 ------- ------- ------- ------- -- Needs SUMI Mccollum 06/25 Advice Assessment [facility](A [facility] Team A) [facility]) OUTPATIENT [id number] [facility] 08/20 Released w/o Limitations [facility](A [facility] Team A) [facility]) TELE CONSULT [id number] Notes Entered by: DELLA FLORES 05 Oct 2011 1044 ------- ------- ------- ------- -- [facility] lab results LUISITO FLORES 10/04 [facility] Medicin e [facility]) [facility] OUTPATIENT [id number] Theater Provider 12/14 Released w/o Limitations [facility] OUTPATIENT [id number] Theater Provider 03/07 Sick at Home/Quarter s [facility] OUTPATIENT [id number] Theater Provider 04/30 Released w/o Limitations Theater Facilit y [facility] OUTPATIENT [id number] Notes Entered by: CHITO ALBERTO 16 Jun 2012 1257 ------- ------- ------- ------- -- ANNUAL PHA CHITO ALBERTO 06/16 Released w/o Limitations [facility](A [facility] Team A) [facility]) OUTPATIENT [id number] DHA3 BHARTI Vazquez 08/22 Released w/o Limitations [facility](A [facility] Team A) [facility] TELE CONSULT [id number] Notes Entered by: RMASEY JC 08 Sep 2012 1255 ------- ------- ------- ------- -- Medicat ion consult ROHAN VELASCO 09/08 Referred for Appointment [facility](A [facility] Team A) [facility] TELE CONSULT [id number] Notes Entered by: RAMSEY JC 27 Sep 2012 1236 ------- ------- ------- ------- -- Med refill ARSEN JOSEPH 09/27 Medication Refill Forwarded [facility](A [facility] Team A) [facility]) OUTPATIENT [id number] request iveth camacho for vasecto BHARTI Bragg 11/14 Released w/o Limitations [facility](A [facility] Team A) [facility] t Fults) TELE CONSULT [id number] Notes Entered by: Elsy WU 29 Nov 2012 1631 ------- ------- ------- ------- -- NETWORK RESULTS 11/28/12 UROLOGY BHARTI TERESA 11/29 [facility] TELE CONSULT [id number] Notes Entered by: ARSEN JOSEPH 13 Feb 2013 1032 ------- ------- ------- ------- -- Medicat ion refill ARSEN JOSEPH 02/13 Referred for Appointment [facility](A [facility] Team A) [facility] OUTPATIENT [id number] Medicat ion refill, Sleep aid TEE NICE 02/14 Released w/o Limitations [facility](Opt ometry) OUTPATIENT [id number] eye exam GERBER LUNDBERG 05/23 Released w/o Limitations [employer](O ptometr y) [facility]) OUTPATIENT [id number] Notes Entered by: VICTORIA TRIPP 29 Jun 2013 1322 ------- ------- ------- ------- -- ANNUAL PHA RONY MARTÍNEZ 06/29 Released w/o Limitations [facility]) [facility] OUTPATIENT [id number] ALAN RICHARDSON 07/11 Released w/o Limitations [facility](A [facility] Team A) [facility]) OUTPATIENT [id number] lower back pain MONI QUINTEN Darden 12/07 Released w/o Limitations [facility](A [facility] Team A) [facility] OUTPATIENT [id number] back pain TEE NICE 12/19 Released with Work/Duty Limitations [facility](A [facility] Team A) [facility] OUTPATIENT [id number] pain in lower in back going down legs TEE NICE 01/09 Released with Work/Duty Limitations [facility](A [facility] Team A) [facility] TELE CONSULT [id number] Notes Entered by: IFTIKHAR TYSON 11 Jan 2014 0846 ------- ------- ------- ------- -- Normal L/S DB Cain 01/11 Referred for Appointment [facility](A [facility] Team A) [employer](Alt us [facility] Team A) OUTPATIENT [id number] [facility] MONTENEGRO QUINTEN A 01/22 Released w/o Limitations [employer](A [facility] Team A) [facility]) TELE CONSULT [id number] Notes Entered by: RIMA ARBOLEDA 30 Mar 2014 1316 ------- ------- ------- ------- -- NETWORK RESULTS [facility] PT/01/25 LOOK IN TEE HURT 03/30 [facility](A [facility] Team A) [facility] Team A) TELE CONSULT [id number] Notes Entered by: JUAN GIRON 17 May 2017 1016 ------- ------- ------- ------- -- Con Lv Request STACEY ROSAS 05/17 Referred for Appointment [facility] Team A) [facility] Team A) TELE CONSULT [id number] Notes Entered by: ALLAN ROSAS 27 May 2017 1037 ------- ------- ------- ------- -- Con Leave Request MARICEL MENDIETA 05/27 [facility] Team A) [facility] Team A) TELE CONSULT [id number] Notes Entered by: GRISELDA DALEY 24 Apr 2020 1114 ------- ------- ------- ------- -- Con Leave BRITTANIE SORENSON 04/24 Other Not Elsewhere Classified [facility] Team A) TELE CONSULT [id number] Notes Entered by: MAYDA XAVIER 14 Oct 2020 0930 ------- ------- ------- ------- -- Other - Med Board Echo diamond IRENE WAYNE 10/14 Other Not Elsewhere Classified [address] [place] [address]( anscom [facility] Team A) [facility] OUTPATIENT [id number] FAILED TEST/WE KOFI FRANCO 02/12 Released w/o Limitations [facility]( [facility]) [address] [place] [address](Luis E kramer [facility]) TELE CONSULT [id number] Notes Entered by: Elsy CHANG 15 Oct 2021920 ------- ------- ------- ------- -- ADAPT Initial Labs TREASURE MCINTYRE 10/[address] [place] [address](Laverne morales [facility]) [address] [place] [address](Luis E kramer [facility]) TELE CONSULT [id number] Notes Entered by: Elsy CHANG 15 Oct 202145 ------- ------- ------- ------- -- ADAPT Initial Labs [facility] TREASURE MCINTYRE 10/[address] [place] [address](Laverne morales th [place]) [facility] [place] OFFICE O/P NEW [place] 60-74 MIN [id number] Diagnos is: ICD-10- CM F43.10 Post-tr aumatic stress disorde r, unspeci fied CARROL CLARK 11/09 [facility] [place] [facility] IMMUNIZATI [place] ADMIN [id number] CARROL CLARK 11/09 [place] [facility] [place] [facility] [place] [facility] Outpatient Encounter [id number] PHILIPPE HEALY 11/23 [place] [facility] [place] OFF[place] O/P EST MOD 30-39 MIN [id number] Diagnos is: ICD-10- CM F43.10 Post-tr aumatic stress disorde r, unspeci fied LUCINA BAJWA J 12/10 [facility] [place] [facility] Outpatient Encounter [id number] 12/10 [place] [facility] LD OFFICE O/P EST MOD 30-39 MIN [id number] Diagnos is: ICD-10- CM F43.10 Post-tr aumatic stress disorde r, unspeci BERENICE Mclaughlin OY F 12/22 [facility] LD OFFICE O/P EST LOW 20-29 MIN [id number] Diagnos is: ICD-10- CM F43.10 Post-tr aumatic stress disorde r, unspeci BERENICE Mclaughlin OY F 01/19 [place] [facility] [place] [facility] Outpatient Encounter [id number] 02/08 [place] [facility] [facility] Outpatient Encounter [id number] 02/09 [place] [facility] [facility] Outpatient Encounter [id number] 02/09 [place] [facility] OFFICE O/P EST LOW 20 MIN [id number] Diagnos is: ICD-10- CM F43.10 Post-tr aumatic stress disorde r, unspeci BERENICE Mclaughlin OY F 03/30 [place] [facility] [place] [facility] Outpatient Encounter [id number] 04/21 [place] [facility] [place] [facility] Outpatient Encounter [id number] Laverne SHIELDS 04/21 [facility] [place] [place] INTRM OPH EXAM NEW PATIENT [id number] Diagnos is: ICD-10- CM 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, bilater al KODY,AN JANIS E 04/21 [facility] [place] [place] [facility] Outpatient Encounter [id number] 05/03 [place] [facility] [place] OFFICE O/P EST MOD 30 MIN [id number] Diagnos is: ICD-10- CM N52.9 Male erectil e dysfunc tion, unspeci BRODY Lane 05/06 [place] [facility] [place] [facility] Outpatient Encounter [id number] 05/06 [place] [facility] [place] [facility] Outpatient Encounter [id number] 05/24 [place] [facility] [place] OFFICE O/P EST LOW 20 MIN [id number] Diagnos is: ICD-10- CM F43.10 Post-tr aumatic stress disorde r, unspeci BERENICE Mclaughlin OY F 05/31 [place] OFFICE O/P EST LOW 20 MIN [id number] Diagnos is: ICD-10- CM F43.10 Post-tr aumatic stress disorde r, unspeci vianey ROYALLER OY F 07/26 [place] [facility] [place] [facility] Outpatient Encounter [id number] 08/11 [place] [facility] [place] [facility] Outpatient Encounter [id number]/17 [place] [place] [facility] [place] OFFICE O/P EST LOW 20 MIN [id number] 1BY. 51 Diagnos is: ICD-10- CM F43.10 Post-tr aumatic stress disorde r, unspeci fied ROYAL,LER OY F 10/25 [place] [facility] Outpatient Encounter [id number]/16 [place] [place] [facility] LD CASE MANAGEMENT [id number] 1BY. 66 Diagnos is: ICD-10- CM F32.A Depress ion, unspeci fied GUANACO,W GENE 01/24 [place] [facility]/P EST LOW 20 MIN [id number] Diagnos is: ICD-10- CM F32.A Depress ion, unspeci fied ROYAL,LER OY F 01/24 [place] [facility] Outpatient Encounter [id number] 03/17 [place] [facility] NQHP OL DIG ASSMT&MGMT 5-10 [id number] Diagnos is: ICD-10- CM N52.9 Male erectil e dysfunc tion, unspeci fied ORTEGA,IZ ABELA A 04/06 [place] [facility]P EST MOD 30 MIN [id number] Diagnos is: ICD-10- CM F43.10 Post-tr aumatic stress disorde r, unspeci fied Sarah MCCARTNEY 04/06 [place] [facility]/P EST LOW 20 MIN [id number] 1BY. 07 Diagnos is: ICD-10- CM F43.10 Post-tr aumatic stress disorde r, unspeci vianey ROYAL,BERENICE OY F 04/25 [facility] Procedures Combined list of: 1) Procedures from Department of Veterans Affairs facilities going back up to thelast 18 months, not all VA non-surgical procedures are included; 2) All procedures from the Department of Defense facilities. Procedure Procedure Type Code Date Perfomer Comments Sourc e No data available for this section Ambulato ry Pharmacy TONE DECAY TEST [facility] THERAPEUTIC, PROPHYLACTIC, OR DIAGNOSTIC INJECTION (SPECIFY SUBSTANCE OR DRUG); SUBCUTANEOUS OR INTRAMUSCULAR [facility] FITTING OF SPECTACLES, EXCEPT FOR APHAKIA; MONOFOCAL [facility] FITTING OF SPECTACLES, EXCEPT FOR APHAKIA; MONOFOCAL [facility] SCREENING TEST OF VISUAL ACUITY, QUANTITATIVE, BILATERAL DoD WAIVER SERVICES; NOT OTHERWISE SPECIFIED (NOS) [...] DoD WAIVER SERVICES; NOT OTHERWISE SPECIFIED (NOS) [facility] PSYCHIATRIC DIAGNOSTIC EVALUATION [facility] BRIEF EMOTIONAL/BEHAVIORA L ASSESSMENT (EG, DEPRESSION INVENTORY, ATTENTION-DEFICIT/H YPERACTIVITY DISORDER [ADHD] SCALE), WITH SCORING AND DOCUMENTATION, PER STANDARDIZED INSTRUMENT 022 DoD Physician Supervised Injection Intramuscular Physician Supervised Injection Intramuscular 92172 TEX TEE Chin Nish Spectacles Services Fitting Monofocal Except For Aphakia Spectacles Services Fitting Monofocal Except For Aphakia 86076 014 GERBER LUNDBERG Ophthalmological Prior Patient Start Comprehensive Care Ophthalmological Prior Patient Start Comprehensive Care 01724 014 GERBER LUNDBERG Determination Of Refractive State Determination Of Refractive State 32603 014 GERBER LUNDBERG Visual Squires Test Intermediate Examination Visual Squires Test Intermediate Examination 64622 014 GERBER LUNDBERG Visual Squires Test Intermediate Examination Visual Squires Test Intermediate Examination 51093 012 ABELARDO JULIAN Spectacles Services Fitting Monofocal Except For Aphakia Spectacles Services Fitting Monofocal Except For Aphakia 29717 012 ABELARDO JULIAN Ophthalmological New Patient Start Comprehensive Care Ophthalmological New Patient Start Comprehensive Care 77871 012 ABELARDO JULIAN Determination Of Refractive State Determination Of Refractive State 35351 012 ABELARDO JULIAN Ophthalmological Sensorimotor Exam Ophthalmological Sensorimotor Exam 08243 012 ABELARDO JULIAN Screening Test Of Visual Acuity, Quantitative, Bilateral Screening Test Of Visual Acuity, Quantitative, Bilateral 18663 012 GEORGE ORTA Tympanometry With Reflex Threshold Measurements Tympanometry With Reflex Threshold Measurements 65154 KOFI [place] Normal ME function, Au DoD Evoked Otoacoustic Radha ions Comprehensive Evoked Otoacoustic Emissions Comprehensive 21400 KOFI [place] Abnormal Au DoD Comprehensive Audiometry Comprehensive Audiometry 35305 KOFI [place] PIPB Rollover speech function testing is a negative finding in the right ear DoD Audiometry Tone Decay Test Audiometry Tone Decay Test 57831 KOFI [place] Abnormal @ 2KHz & 3KHz in the right ear [facility] Psychiatric Diagnostic Evaluation Comprehensive Examination Psychiatric Diagnostic Evaluation Comprehensive Examination 49266 PERRYJALYN [facility] Psychometric Emotional / Behavioral A e ment Psychometric Emotional / Behavioral Assessment [address] [place] Psychiatric Evaluation Explanation Of Exam Results Psychiatric Evaluation Explanation Of Exam Results 69301 DEANDRA BOURGEOIS [facility] Waiver services; not otherwise specified (NOS) DEANDRA BOURGEOIS [facility] Psychiatric Diagnostic Evaluation Initial Psychiatric Diagnostic Evaluation Initial 93364 DEANDRA BOURGEOIS [facility] Clinical Social Work Individual Outpatient Counseling 60 Minutes Clinical Social Work Individual Outpatient Counseling 60 Minutes 65326 DEANDRA BOURGEOIS [facility] Psychotherapy Group Psychotherapy Group 53109 DEANDRA BOURGEOIS [facility] Psychotherapy Group Interactive Psychotherapy Group Interactive 02477 DEANDRA BOURGEOIS [facility] Clinical Social Work Individual Outpatient Counseling 30 Minutes Clinical Social Work Individual Outpatient Counseling 30 Minutes 00227 DEANDRA BOURGEOIS [facility] Social History Combined list of available smoking, tobacco, and other social history from Department of Defense and Veterans Affairs facilities. Social History Type Response Date Comment Sourc e Tobacco smoking status NHIS NE-TOBACCO NEVER USED 10/26/19 [facility] History of tobacco use NE-TOBACCO NEVER USED 09/03/2022 [facility] This section is an empty soc ial [...] Plan No data available for this section 05/01/2024 Ambulatory Pharmacy Plan of Care List of future care activities from Department of Veterans Affairs facilities. Additional future care activities may be listed in the Assessment and Plan section. Date/Time Care Activity Care Activity Detail Facili ty 06/02/2024 AMBULATORY - MEDICINE AMBULATORY - MEDICI [facility] 10/24/2024 AMBULATORY - PSYCHIATRY AMBULATORY - PSYC HIATRY [facility] 05/04/2024 Laboratory - Chemistry Order BAS IC METABOLIC PANEL (fasting) BLOOD (SST-SERUM) [facility] Functional Status Combined list of recent functional and cognitive assessments recorded at Department of Defense and Veterans Affairs ([place]).VA Functional [place] Measurement (FIM) Scale: 1 = Total Assistance (Subject = 0% +), 2 = Maximal Assistance (Subject = 25% +), 3 = Moderate Assistance (Subject = 50% +), 4 = Minimal Assistance (Subject = 75% +), 5 = Supervision, 6 = Modified Wood[place] (Device), 7 = Complete [place] (Timely, Safely). Assessment Date/Time Source Assessment Type Assessment Skill Assessment Score Assessment Details No data available for this section
--- OUTSIDE RECORDS SUMMARY | 2024-05-01 08:14 | XMS_ITS | Encounter Summary ---
Author Name [facility] [place] [facility] [place] Address [address] [place] [id number] Care Team Providers Care Waitress Name Role Phone ROSANNA SANTILLAN Primary Care [...] PRESCRIPT ION RX Apr 20, 2022 THPRX [id number] EVA VARGAS PATIENT [facility]NG BROWNLEE GAMA CHAPMAN E Apr 20, 2022 [id number] [phone] EVA VARGAS PATIENT Selected Encounter This section includes the information on record at [place] for the Encounter. Date/Time Encounter Type Encounter Description Reason Provider Source Apr 25, 2024 08:30 AM OFFICE O/P EST LOW 20 [facility] - IND ICD-10-CM F43.10 Post-traumatic stress disorder, unspecified MONRO[facility] ROYAL IHDede Encounter Template Text not used by [facility] Assessments - Encounter Diagnoses This section includes the primary and secondary diagnoses documented for the Encounter. Date/Time Primary/Secondary Diagnosis Diagnosis Name Provider Source Apr 25, 2024 08:54 AM PRIMARY Post-traumatic stress disorder, unspecified [facility] ROYAL [facility] Plan of Treatment: Future Appointments (+ 6 months) and Future Tests (+/- 45 days) The Plan of Treatment section includes future care activities for the patient from [facility] [place] [facility]. This section includes future appointments and future orders which are active, pending or scheduled. Future Appointments This section includes appointments that were scheduled to occur 6 months from the date of the Encounter, up to a maximum of 20 appointments. The data comes from all [place] treatment facilities. Appointment Date/Time Appointment Type Appointme nt Facility Name Jun 02, 2024 09:30 AM AMBULATORY - MEDICINE [facility] Oct 24, 2024 09:00 AM AMBULATORY - PSYCHIATRY [facility] Active, [...] of theEncounter. The data comes from all [place] treatment facilities. Test Date/Time Test Type Test Details Facility Name May 04, 2024 12:00 AM Laboratory - Chemi stry Order BASIC METABOLIC PANEL (fasting) BLOOD (SST-SERUM) [facility] Lab Results: +/- 30 days of the encounter This section includes the Chemistry and Hematology Lab Results on record with [place] for the patient. Radiology Reports and Pathology Reports are provided separately, in subsequent sections. Lab Results This section contains the Chemistry/Hematology Results that were resulted 30 days before or 30 daysafter the date of the Encounter. Date/Time Source Result Type Result - Unit Interpretation Reference Range Comment Apr 24, 2024 11:16 AM [facility] URINALYSIS Specimen Type: URINE Comment: If Glucose = >500 and Ketones are positive, please alert the Physician. Ordering Provider: AMMY MCCARTNEY Report Released Date/Time: Apr 06, 2024 12:53 PM Reporting Lab: [address] [phone] Performing Lab: [address] [address] UA COLOR Light-Yellow Yellow UA APPEARANCE Turbid Clear UA GLUCOSE Normal mg/dL Negative UA KETONES NEGATIVE mg/dL Negative UA BLOOD NEGATIVE mg/dL Negative UA PROTEIN NEGATIVE mg/dL Negative UA NITRITE NEGATIVE mg/dL Negative UA BILIRUBIN NEGATIVE mg/dL Negative UA SPECIFIC GRAVITY 1.015 L 1.016-1.022 UA pH 8.0 5.0-9.0 UA UROBILINOGEN Normal mg/dL <2.0 UA LEUKOCYTE NEGATIVE Negative Apr 24, 2024 11:16 AM [facility] MICROALBUMIN CREATININE RATIO PANEL Spe cimen Type: URINE No comment entered. Ordering Provider: AMMY MCCARTNEY Report Released Date/Time: Apr 06, 2024 12:53 PM Reporting Lab: [address] [address] Performing Lab: [address] [address] MICROALBUMIN/C REATININE RATIO canc mg/g 0-29.9 MICROALBUMIN,Q UANTITATIVE < 0.5 mg/dL RR UNAVAIL CREATININE URINE 92.73 mg/dL Apr 24, 2024 11:16 AM [facility] MICROSCOPIC AUTOMATED, URINE Specimen Type: URINE Comment: If Glucose = >500 and Ketones are positive, please alert the Physician. Ordering Provider: AMMY MCCARTNEY Report Released Date/Time: Apr 06, 2024 12:53 PM Reporting Lab: [facility] [address] [facility] [address] Performing Lab: [address] [address] UA RBC 0-2 /[HPF] 0-3 UA AMORPHOUS CRYSTALS MODERATE /[HPF] Not Established Apr 24, 2024 11:06 AM [facility] BASIC METABOLIC PANEL (fasting) Specime n Type: SERUM No comment entered. Ordering Provider: ROSANNA VALERIO Report Released Date/Time: Apr 07, 2024 09:00 AM Reporting Lab: [facility] [address] [facility] [address] Performing Lab: [address] [address] UREA NITROGEN 9 mg/dL 7-25 GLUCOSE 105 mg/dL H 65-100 SODIUM 139 mmol/L 135-145 POTASSIUM 4.2 mmol/L 3.5-5.0 CHLORIDE 104 mmol/L 100-110 CO2 27 meq/L 20-30 CALCIUM 9.5 mg/dL 8.5-10.2 CREATININE, Serum 1.14 mg/dL 0.50-1.40 eGFR(CKD-EPI 2020) 84 mL/min >60 Apr 24, 2024 11:06 AM [facility] LIPID PANEL FASTING Specimen Type: SERUM No comment entered. Ordering Provider: ROSANNA VALERIO Report Released Date/Time: Apr 07, 2024 09:00 AM Reporting Lab: [address] [address] Performing Lab: [address] [address] CHOLESTEROL 201 mg/dL H TRIGLYCERIDE 86 mg/dL 0-150 LDL calculated 132 mg/dL H 0-129 CHOL/HDL 3.9 HDL CHOLESTEROL 52 mg/dL 40-60 Apr 24, 2024 11:06 AM [facility] LIVER FUNCTION Specimen Type: SERUM No comment entered. Ordering Provider: ROSANNA VALERIO Report Released Date/Time: Apr 07, 2024 09:00 AM Reporting Lab: [address] [address] Performing Lab: [address] [address] PROTEIN,TOTAL 7.0 g/dL 6.0-8.3 ALBUMIN 3.8 g/dL 3.5-5.0 ALKALINE PHOSPHATASE 58 U/L 40-150 AST 26 U/L 5-34 ALT 35 U/L BILIRUBIN, TOTAL 0.6 mg/dL 0.2-1.2 Apr 24, 2024 11:06 AM [facility] CBC AND DIFF (AUTO) Specimen Type: BLOOD No comment entered. Ordering Provider: ROSANNA VALERIO Report Released Date/Time: Apr 07, 2024 09:00 AM Reporting Lab: [address] [address] Performing Lab: [address] [place] [address] WBC 5.41 10*3/uL 4.50-11.00 RBC 5.55 10*6/uL [...] 10*3/uL 0.00-0.00 Apr 24, 2024 11:06 AM [facility] HEMOGLOBIN A1C PANEL Specimen Type: BLOOD Comment: [...] 07, 2024 09:00 AM Reporting Lab: [facility] [address] [address] Performing Lab: [facility] [address] [facility] [address] HEMOGLOBIN A1C 4.6 4.0-5.6 Apr 24, 2024 11:06 AM [facility] TSH Specimen Type: SERUM No comment entered. Ordering Provider: ROSANNA VALERIO Report Released Date/Time: Apr 07, 2024 09:00 AM Reporting Lab: [facility] [address] [facility] [address] Performing Lab[facility] [address] [facility] [address] TSH 1.10 u[IU]/mL 0.35-5.00 Social History: Smoking Status (Most current) and [...] Stanislaw fox Oct 26, 2023 08:30 AM [place] NEVER USED [facility] Tobacco Use History This section includes a history of the smoking, or tobacco-related health factors, that were collected on or before the date of the Encounter. The data comes from the [place] facility where the Encounter took place. Date/Time Smoking Status/Tobacco Use Comment F acelliot Sep 03, 2022 08:30 AM [place] NEVER USED [facility] Encounter Notes: All associated encounter notes This section contains the clinical notes associated to the Encounter. 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 He has and has a fianc?? 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 some - no hx of S/I or H/I He is followed by [facility] for counseling - going through divorce process - amicable . They have two children 13,10 will have joint custody.. Involved with school sports with his kids Labs/Radiology/Tests/Consultation _ none ordered __ obtained: labs not available in community Plan: Continue Bupropion 300mg SA daily- he states that it did help with some of the sexual side effects. Taking Buspar 5 mg bid for anxiety. He is taking Cialis which is effective . planning to in September He will monitor for mood. Rt 12 [...] this patient. I asked the patient call [phone] ([facility]) or to come to open access if [...] Royal APRN, STAFF CLINICAL NURSE SPECIALIST Signed: 04/25/2024 08:54 MONROE ROYAL
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
== END 2024-05-01 08:09 | disposition home or self-care (01) ==
LOC: HO.BBR 08:08
PROVIDERS: PCP Nurse Practitioner; Visit Provider Internal Medicine Endocrinology, Diabetes & Metabolism
DX: D75.1 Secondary polycythemia (principal)
CPT/HCPCS: 85018; 99195

== ENCOUNTER 2024-06-05 08:08 | Outpatient (REF) | payer OTHER, SELFPAY ==
--- OUTSIDE RECORDS SUMMARY | 2024-06-05 08:29 | XMS_ITS ---
Author Name [facility] Address [address] [place] [address] Care Team Providers Care Spice Room Worker Name Role Phone ROSANNA SANTILLNA Primary Care Provide r Unavailable Insurance Providers: [...] PRESCRIPT ION RX Apr 20, 2022 [facility] [id number] [phone] EVA VARGAS PATIENT [facility] TORI Aguayo Apr 20, 2022 [facility] [phone] EVA VARGAS PATIENT Selected Encounter This section includes the information on record at [place] for the Encounter. Date/Time Encounter Type Encounter Description Reason Pro vider Source Jun 02, 2024 09:24 AM Outpatient Encounter PRIMARY CARE/MEDICINE [facility] Encounter [...] 20 appointments. The data comes from all [place] treatment facilities. Appointment Date/Time Appointment Type Appointme nt Facility Name Oct 24, 2024 09:00 AM [facility] [place] [facility] [place] of theEncounter. The data comes from all [facility]. Test Date/Time Test Type Test Details Facility Name May 04, 2024 12:00 AM Laboratory - Chemi stry Order BASIC METABOLIC PANEL (fasting) BLOOD (SST-SERUM) [facility] Vital Signs: All taken on the encounter date This section contains inpatient and outpatient Vital Signs collected on the date of the Encounter. Date/Time Temperature Pulse Blood Pressure Respiratory Rate SP02 Pain Height Weight Body Mass Index Source Jun 02, 2024 09:23 AM 97.7 77 126/77 18 97 70 220 32 [place] [facility] Encounter Notes: All associated encounter notes This section contains the clinical notes associated to the Encounter. Date/Time Encounter Note(s) Provider Source Jun 02, 2024 09:24 AM PREVENTIVE MEDICIN E NURSING NOTE: LOCAL TITLE: CLINICAL REMINDERS/NURSING STANDARD TITLE: PREVENTIVE MEDICINE NURSING NOTE DATE OF NOTE: JUN 02, 2024@09:24 ENTRY DATE: JUN 02, 2024@09:24:37 AUTHOR: SHERMAN SHARP EXP COSIGNER: URGENCY: STATUS: COMPLETED Advance Directive Screen MH AD: Patient does not have a completed advance directive on file at any facility, [place] or outside. S/he is not interested in completing one at this time. The patient received education about Advance Directives and written notification of his/her rights. Influenza Immunization: Deferral / Refusal The patient declines to receive the recommended dose of seasonal influenza vaccine. Immunization: INFLUENZA, UNSPECIFIED FORMULATION Refusal Reason: PATIENT DECISION Patient refuses all immunization(s) in the FLU group Date Documented: 06/02/24 09:24 COVID-19 Immunization: Refused Moderna Monovalent COVID-19 vaccine Immunization: COVID-19 (MODERNA), MRNA, LNP-S, PF, 50 MCG/0.5 ML (AGES 12+ YEARS) Refusal Reason: PATIENT DECISION Patient refuses all immunization(s) in the COVID-19 group Date Documented: 06/02/24 09:25 RHS Screen: RHS Screen Session Format: Face [...] full rights to use it throughout the [place] system. PRIMARY SCREEN RESULT: The Primary Screen [...] identified. /renita/ YAZMIN SHARP LPN LPN Signed: 06/02/2024 09:25 YAZMIN SHARP [place]
--- OUTSIDE RECORDS SUMMARY | 2024-06-05 08:29 | XMS_ITS | Encounter Summary ---
Author Name [facility] [place] [facility] [place] Address [address] [place] [address] Care Team Providers Care Government Affairs Fellow Name Role Phone ROSANNA SANTILLAN Primary Care [...] PRESCRIPT ION RX Apr 20, 2022 [facility] [id number] EVA VARGAS PATIENT [facility] PLAN [facility] BROWNLEE GAMA CHAPMAN E Apr 20, 2022 [facility] [id number] [phone] EVA VARGAS PATIENT Selected Encounter This [...] PRIMARY Post-traumatic stress disorder, unspecified [facility] Plan of Treatment: Future Appointments (+ 6 months) and Future Tests (+/- 45 days) The Plan of Treatment section includes future care activities for the patient from all [place] [facility] This section includes future appointments and future orders which are active, pending or scheduled. Future Appointments This section includes appointments that were scheduled to occur 6 months from the date of the Encounter, up to a maximum of 20 appointments. The data comes from all [place] treatment facilities. Appointment Date/Time Appointment Type Appointme nt Facility Name Oct 26, 2023 08:30 AM AMBULATORY - PSYCHIATRY [facility] Jan 25, 2024 08:30 AM AMBULATORY - PSYCHIATRY [facility] Social History: Smoking Status (Most current) [...] Facil dominique Sep 03, 2022 08:30 AM [place]-TOBACCO NEVER USED [facility] Encounter Notes: All associated encounter notes This [...] minimal in good control Assessment: Has completed [employer] school in [place]- He states that he enjoys school. Mood is stable. some - no hx of S/I or H/I He is followed by [facility] for counseling - going through divorce process [...] this patient. I asked the patient call [phone] ([facility]) or to come [...] this [place] (local) and dispensed from another [place] or [place] facility (remote) as well as [...] NURSE SPECIALIST Signed: 07/27/2023 15:45 [facility]
--- OUTSIDE RECORDS SUMMARY | 2024-06-05 08:29 | XMS_ITS | Encounter Summary ---
Author Name [facility] [place] [facility] [place] Address [address] [place] [id number] Care Team Providers Care Agate Setter Name Role Phone ROSANNA SANTILLAN Primary Care [...] PRESCRIPT ION RX Apr 20, 2022 THPRX [id number] [phone] EVA VARGAS PATIENT [facility] KVNG BROWNLEE GAMA CHAPMAN E Apr 20, 2022 [id number] 05 EVA VARGAS PATIENT Selected Encounter This [...] PRIMARY Post-traumatic stress disorder, unspecified [place] Plan of Treatment: Future Appointments (+ 6 months) and Future Tests (+/- 45 days) The Plan of Treatment section includes future care activities for the patient from all [facility]. This section includes future appointments and [...] 02, 2024 09:30 AM AMBULATORY - MEDICINE [facility] Oct 24, 2024 09:00 AM AMBULATORY - PSYCHIATRY [facility] Active, [...] of theEncounter. The data comes from all [facility]. Test Date/Time Test Type Test Details Facility Name May 04, 2024 12:00 AM Laboratory - Chemi stry Order BASIC METABOLIC PANEL (fasting) BLOOD (SST-SERUM) [facility] Lab Results: +/- 30 days of the encounter This section includes the Chemistry and Hematology Lab Results on record with CT for the patient. Radiology Reports and Pathology Reports are provided separately, in subsequent sections. Lab Results This section contains the Chemistry/Hematology Results that were resulted 30 days before or 30 daysafter the date of the Encounter. Date/Time Source Result Type Result - Unit Interpretation Reference Range Specimen Type Comment Apr 24, 2024 11:16 AM [place] URINALYSIS URINE Specimen Type: URINE Comment: If Glucose = >500 and Ketones are positive, please alert the Physician. Ordering Provider: RYAN MCCARTNEY Report Released Date/Time: Apr 06, 2024 12:53 PM Reporting Lab: [address] [address] Performing Lab: [address] [address] UA COLOR Light-Yellow Yellow UA APPEARANCE Turbid Clear UA GLUCOSE Normal mg/dL Negative UA KETONES NEGATIVE mg/dL Negative UA BLOOD NEGATIVE mg/dL Negative UA PROTEIN NEGATIVE mg/dL Negative UA NITRITE NEGATIVE mg/dL Negative UA BILIRUBIN NEGATIVE mg/dL Negative UA SPECIFIC GRAVITY 1.015 L 1.016-1.022 UA pH 8.0 5.0-9.0 UA UROBILINOGEN Normal mg/dL <2.0 UA LEUKOCYTE NEGATIVE Negative Apr 24, 2024 11:16 AM [place] MICROALBUMIN CREATININE RATIO PANEL URINE Specimen Type: URINE No comment entered. Ordering Provider: JOVANNA MCCARTNEY Report Released Date/Time: Apr 06, 2024 12:53 PM Reporting Lab: [address] [address] Performing Lab: [address] [address] MICROALBUMIN/CREATININE RATIO canc mg/g 0-29.9 MICROALBUMIN,QUANTITATIVE < 0.5 mg/dL RR UNAVAIL CREATININE URINE 92.73 mg/dL Apr 24, 2024 11:16 AM [place] MICROSCOPIC AUTOMATED, URINE URINE Sp ecimen Type: URINE Comment: If Glucose = >500 and Ketones are positive, please alert the Physician. Ordering Provider: JOVANNA MCCARTNEY Report Released Date/Time: Apr 06, 2024 12:53 PM Reporting Lab: [facility] [address] [facility] [address] Performing Lab: [address] [address] UA RBC 0-2 /[HPF] 0-3 UA AMORPHOUS CRYSTALS MODERATE /[HPF] No t Established Apr 24, 2024 11:06 AM [place] BASIC METABOLIC PANEL (fasting) SERUM Specimen Type: SERUM No comment entered. Ordering Provider: ROSANNA SANTILLAN Report Released Date/Time: Apr 07, 2024 09:00 AM Reporting Lab: [facility] [address] [facility] [address] Performing Lab: [address] [address] UREA NITROGEN 9 mg/dL 7-25 GLUCOSE 105 mg/dL H 65-100 SODIUM 139 mmol/L 135-145 POTASSIUM 4.2 mmol/L 3.5-5.0 CHLORIDE 104 mmol/L 100-110 CO2 27 meq/L 20-30 CALCIUM 9.5 mg/dL 8.5-10.2 CREATININE, Serum 1.14 mg/dL 0.50-1.40 eGFR(CKD-EPI 2020) 84 mL/min >60 Apr 24, 2024 11:06 AM [place] LIPID PANEL FASTING SERUM Specimen Ty pe: SERUM No comment entered. Ordering Provider: ROSANNA SANTILLAN Report Released Date/Time: Apr 07, 2024 09:00 AM Reporting Lab: [address] [address] Performing Lab: [address] [address] CHOLESTEROL 201 mg/dL H TRIGLYCERIDE 86 mg/dL 0-150 LDL calculated 132 mg/dL H 0-129 CHOL/HDL 3.9 HDL CHOLESTEROL 52 mg/dL 40-60 Apr 24, 2024 11:06 AM [place] LIVER FUNCTION SERUM Specimen Type: S ESTRELLITA No comment entered. Ordering Provider: ROSANNA SANTILLAN Report Released Date/Time: Apr 07, 2024 09:00 AM Reporting Lab: [address] [address] Performing Lab: [address] [address] PROTEIN,TOTAL 7.0 g/dL 6.0-8.3 ALBUMIN 3.8 g/dL 3.5-5.0 ALKALINE PHOSPHATASE 58 U/L 40-150 AST 26 U/L 5-34 ALT 35 U/L BILIRUBIN, TOTAL 0.6 mg/dL 0.2-1.2 Apr 24, 2024 11:06 AM [place] CBC AND DIFF (AUTO) BLOOD Specimen Ty pe: BLOOD No comment entered. Ordering Provider: ROSANNA SANTILLAN Report Released Date/Time: Apr 07, 2024 09:00 AM Reporting Lab: [address] [address] Performing Lab: [facility] [address] [facility] [address] WBC 5.41 10*3/uL 4.50-11.00 RBC 5.55 10*6/uL [...] H 0.0-0.7 IMMATURE GRAN, ABS 0.06 10*3/uL 0.00-0.0 6 NRBC % 0.0 0.0-0.0 NRBC, ABS 0.00 10*3/uL 0.00-0.00 Apr 24, 2024 11:06 AM [place] HEMOGLOBIN A1C PANEL BLOOD Specimen T ype: BLOOD Comment: Values obtained from A1C measurements can vary. For atypical A1C assays, a reported value of 7.0 could actually be between 6.72 and 7.28 if measured by a reference method. A reported value of 9.0 could actually be between 8.73 and 9.27. Ref: http://www.ngsp.org/CAPdata.asp Ordering Provider: ROSANNA SANTILLAN Report Released Date/Time: Apr 07, 2024 09:00 AM Reporting Lab: [facility] [address] [facility] [address] Performing Lab: [facility] [address] [facility] [address] HEMOGLOBIN A1C 4.6 4.0-5.6 Apr 24, 2024 11:06 AM [place] TSH SERUM Sp ecimen Type: SERUM No comment entered. Ordering Provider: ROSANNA SANTILLAN Report Released Date/Time: Apr 07, 2024 09:00 AM Reporting Lab: [facility] [address] [facility] [address] Performing Lab: [facility] [address] [address] TSH 1.10 u[IU]/mL 0.35-5.00 Social History: Smoking [...] Facil ity Oct 26, 2023 08:[address]-TOBACCO NEVER USED [place] Tobacco Use History This section includes a history of the smoking, or tobacco-related health factors, that were collected on or before the date of the Encounter. The data comes from the [place] facility where the Encounter took place. 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 some - no hx of S/I or H/I He is followed by [facility] for counseling - going through divorce process - [place] . They have two children 13,10 will [...] this patient. I asked the patient call [phone] ([facility]) or to [...] this [facility] (local) and dispensed from another [place] or [facility] facility (remote) as well as inpatient orders [...] CLINICAL NURSE SPECIALIST Signed: 04/25/2024 08:54 [place]
--- OUTSIDE RECORDS SUMMARY | 2024-06-05 08:29 | XMS_ITS | Encounter Summary ---
Author Name [facility] [place] Organization [facility] [place] [facility] [place] Address [address] [place] [address] Care Team Providers Care District Wire Chief Name Role Phone ROSANNA SANTILLAN Primary Care [...] PRESCRIPT ION RX Apr 20, 2022 THPRX [id number] EVA VARGAS PATIENT [facility] PLAN TORI Aguayo Apr 20, 2022 [id number] 05 EVA VARGAS PATIENT Selected Encounter This section includes the information on record at [place] for the Encounter. Date/Time Encounter Type Encounter [...] 08:37 AM PRIMARY Depression, unspecified [place] [facility] Plan of Treatment: Future Appointments (+ 6 months) and Future Tests (+/- 45 days) The Plan of Treatment section includes future care activities for the patient from all [place] treatmentfacilities. This section includes future appointments and future orders which are active, pending or scheduled. Future Appointments This section includes appointments that were scheduled to occur 6 months from the date of the Encounter, up to a maximum of 20 appointments. The data comes from all [place] treatment facilities. Appointment Date/Time Appointment Type Appointme nt Facility Name Apr 06, 2024 12:30 PM AMBULATORY - MEDICINE [facility] Apr 25, 2024 08:30 AM AMBULATORY - PSYCHIATRY [facility] Jun 02, 2024 09:30 AM [place]ICINE [place] [facility] [place] [facility] Social History: Smoking Status (Most current) and Tobacco Use (All prior to encounter date) This section includes the most current, and the historical, smoking and tobacco- related health factors from the [place] facility where the Encounter took place. Current Smoking Status This section includes the most current smoking, or tobacco-related health factor, from the [place] facility where the Encounter took place. Date/Time Current Smoking Status Comment Facil dominique Oct 26, 2023 08:30 AM [place]-TO[place]ACCO NEVER USED [place] Tobacco Use History This section includes a history of the smoking, or tobacco-related health factors, that were collected on or before the date of the Encounter. The data comes from the [place] facility where the Encounter took place. 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 They have two children 13,10 will have joint custody.. Involved with school sports with his kids. Has gf, good support Labs/Radiology/Tests/Consultation _ none ordered __ obtained: labs not available in community Plan: D/C Venlafaxine and agreed to try [...] this patient. I asked the patient call [phone] ([facility]) or to come to open access if [...] (local) and dispensed from another [facility] or [facility] facility (remote) as well as inpatient [...] CLINICAL NURSE SPECIALIST Signed: 01/25/2024 08:37 [place]
--- OUTSIDE RECORDS SUMMARY | 2024-06-05 08:29 | XMS_ITS | Continuity of Care Document ---
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 [place] [address] [place] [address] [place] CBC AND DIFF (AUTO) ERYTHROCYT E DISTRIBUTI ON WIDTH [RATIO] BY AUTOMATED COUNT 12.6 12.0 - 16.0 04/24 Specimen Type: BLOOD No comment entered. Ordering Provider: MARQUEZ DIAZ Report Released Date/Time: Apr 07, 2024 09:00 AM Reporting Lab: [facility] [place] [address] [address] Performing Lab: [facility] [place] [address] [address] [place] CBC AND DIFF (AUTO) MONOCYTES [#/VOLUME] IN BLOOD BY AUTOMATED COUNT 0.61 10*3/uL 0.30 - 1.10 04/24 Specimen Type: BLOOD No comment entered. Ordering Provider: MARQUEZ DIAZ Report Released Date/Time: Apr 07, 2024 09:00 AM Reporting Lab: [facility] [place] [address] [address] Performing Lab: [facility] [place] [address] [address] [place] CBC AND DIFF (AUTO) MCH [ENTITIC MASS] BY AUTOMATED COUNT 31.9 pg 26.2 - 32.6 04/24 Specimen Type: BLOOD No comment entered. Ordering Provider: MARQUEZ DIAZ Report Released Date/Time: Apr 07, 2024 09:00 AM Reporting Lab: [facility] [place] [address] [address] Performing Lab: [facility] [place] [address] [address] [place] CBC AND DIFF (AUTO) NEUTROPHIL S/100 LEUKOCYTES IN BLOOD BY AUTOMATED COUNT 51.5 43.7 - 75.8 04/24 Specimen Type: BLOOD No comment entered. Ordering Provider: MARQUEZ DIAZ Report Released Date/Time: Apr 07, 2024 09:00 AM Reporting Lab: [facility] [place] [facility] [address] [facility] [address] Performing Lab: [facility] [place] [facility] [address] [facility] [address] [place] CBC AND DIFF (AUTO) LYMPHOCYTE S/100 LEUKOCYTES IN BLOOD BY AUTOMATED COUNT 33.5 14.0 - 42.3 04/24 Specimen Type: BLOOD No comment entered. Ordering Provider: MARQUEZ DIAZ Report Released Date/Time: Apr 07, 2024 09:00 AM Reporting Lab: [facility] [place] [facility] [address] [facility] [address] Performing Lab: [place] [facility] [place] [address] [address] [place] CBC AND DIFF (AUTO) MONOCYTES/ 100 LEUKOCYTES IN BLOOD BY AUTOMATED COUNT 11.3 5.1 - 13.7 04/24 Specimen Type: BLOOD No comment entered. Ordering Provider: MARQUEZ DIAZ Report Released Date/Time: Apr 07, 2024 09:00 AM Reporting Lab: [place] [facility] [place] [address] [address] Performing Lab: [place] [facility] [place] [facility] [address] [facility] [address] [place] CBC AND DIFF (AUTO) EOSINOPHIL S/100 LEUKOCYTES IN BLOOD BY AUTOMATED COUNT 1.5 0.4 - 6.8 04/24 Specimen Type: BLOOD No comment entered. Ordering Provider: MARQUEZ DIAZ Report Released Date/Time: Apr 07, 2024 09:00 AM Reporting Lab: [place] [facility] [place] [facility] [address] [facility] [address] Performing Lab: [place] [facility] [place] [address] [address] [place] CBC AND DIFF (AUTO) BASOPHILS/ 100 LEUKOCYTES IN BLOOD BY AUTOMATED COUNT 1.1 0.1 - 2.0 04/24 Specimen Type: BLOOD No comment entered. Ordering Provider: MARQUEZ DIAZ Report Released Date/Time: Apr 07, 2024 09:00 AM Reporting Lab: [facility] [address] [facility] [address] Performing Lab: [facility] [address] [facility] [address] [place] CBC AND DIFF (AUTO) NEUTROPHIL S [#/VOLUME] IN BLOOD BY AUTOMATED COUNT 2.79 10*3/uL 2.20 - 7.60 04/24 Specimen Type: BLOOD No comment entered. Ordering Provider: MARQUEZ DIAZ Report Released Date/Time: Apr 07, 2024 09:00 AM Reporting Lab: [place] [facility] [address] [address] Performing Lab: [place] [facility]ENTER[facility] [address] [place] CBC AND DIFF (AUTO) LYMPHOCYTE S [#/VOLUME] IN BLOOD BY AUTOMATED COUNT 1.81 10*3/uL 1.00 - 3.20 04/24 Specimen Type: BLOOD No comment entered. Ordering Provider: MARQUEZ DIAZ Report Released Date/Time: Apr 07, 2024 09:00 AM Reporting Lab: [facility] [address] [address] Performing Lab: [place] [facility] [address] [address] [place] CBC AND DIFF (AUTO) EOSINOPHIL S [#/VOLUME] IN BLOOD BY AUTOMATED COUNT 0.08 10*3/uL 0.03 - 0.44 04/24 Specimen Type: BLOOD No comment entered. Ordering Provider: MARQUEZ DIAZ Report Released Date/Time: Apr 07, 2024 09:00 AM Reporting Lab: [facility] [address] [address] Performing Lab: [place] [facility] [address] [address] [place] CBC AND DIFF (AUTO) BASOPHILS [#/VOLUME] IN BLOOD BY AUTOMATED COUNT 0.06 10*3/uL 0.01 - 0.13 04/24 Specimen Type: BLOOD No comment entered. Ordering Provider: MARQUEZ DIAZ Report Released Date/Time: Apr 07, 2024 09:00 AM Reporting Lab: [place] [facility] [address] [address] Performing Lab: [place] [facility] [address] [address] [place] CBC AND DIFF (AUTO) IMMATURE GRANULOCYT ES/100 LEUKOCYTES IN BLOOD BY AUTOMATED COUNT 1.1 0.0 - 0.7 04/24 H Specimen Type: BLOOD No comment entered. Ordering Provider: MARQUEZ DIAZ Report Released Date/Time: Apr 07, 2024 09:00 AM Reporting Lab: [facility] [address] [address] Performing Lab: [facility] [address] [address] [place] CBC AND DIFF (AUTO) IMMATURE GRANULOCYT ES [#/VOLUME] IN BLOOD BY AUTOMATED COUNT 0.06 10*3/uL 0.00 - 0.06 04/24 Specimen Type: BLOOD No comment entered. Ordering Provider: MARQUEZ DIAZ Report Released Date/Time: Apr 07, 2024 09:00 AM Reporting Lab: [facility] [address] [address] Performing Lab: [place] [facility] [address] [address] [place] CBC AND DIFF (AUTO) NUCLEATED ERYTHROCYT ES/100 LEUKOCYTES [RATIO] IN BLOOD BY AUTOMATED COUNT 0.0 0.0 - 0.0 04/24 Specimen Type: BLOOD No comment entered. Ordering Provider: MARQUEZ DIAZ Report Released Date/Time: Apr 07, 2024 09:00 AM Reporting Lab: [facility] [address] [address] Performing Lab: [place] [facility] [facility] [address] [facility] [address] [place] CBC AND DIFF (AUTO) NUCLEATED ERYTHROCYT ES [#/VOLUME] IN BLOOD BY AUTOMATED COUNT 0.00 10*3/uL 0.00 - 0.00 04/24 Specimen Type: BLOOD No comment entered. Ordering Provider: MARQUEZ DIAZ Report Released Date/Time: Apr 07, 2024 09:00 AM Reporting Lab: [place] [facility] [place] [facility] [address] [facility] [address] Performing Lab: [facility] [address] [address] [place] HEMOGLOB IN A1C PANEL HEMOGLOBIN [...] Apr 07, 2024 09:00 AM Reporting Lab: [facility] [address] Performing Lab: [place] [facility] [address] [address] [place] TSH THYROTROPI N [UNITS/VOL UME] IN SERUM OR PLASMA 1.10 u[IU]/mL 0.35 - 5.00 04/24 Specimen Type: SERUM No comment entered. Ordering Provider: MARQUEZ DIAZ Report Released Date/Time: Apr 07, 2024 09:00 AM Reporting Lab: [facility] [address] [address] Performing Lab: [place] [facility] [place] [facility] [address] [facility] [address] [facility] Vital Signs Combined list of inpatient and outpatient Vital Signs from Department of Defense and Veterans Affairs, ranging from 12 months to all on record, depending upon the facility. Vital Sign Value Date Comments Source SYSTOLIC BLOOD PRESSURE 126 06/03/19 25 09:23:35 [facility] [place] [facility] DIASTOLIC BLOOD PRESSURE 77 025 09:23:35 [facility] [place] [facility] PULSE OXIMETRY 97 06/02/2024 09:23:35 [facility] [place] [facility] WEIGHT 220 06/02/2024 09:23:35 [facility] [place] [facility] BMI 32 kg/m2 06/02/2024 09:23:35 [facility] [place] [facility] HEIGHT 70 06/02/2024 09:23:35 [facility] [place] [facility] TEMPERATURE 97.7 06/02/2024 09:23:35 [place] [facility] [place] [facility] PULSE 77 06/02/2024 09:23:35 [facility] [place] [facility] RESPIRATION 18 06/02/2024 09:23:35 [place] [facility] [place] [facility] SYSTOLIC BLOOD PRESSURE 138 04/06/19 25 12:38:03 [place] DIASTOLIC BLOOD PRESSURE 88 025 12:38:03 [place] PULSE OXIMETRY 99 04/06/2024 12:38:03 [place] WEIGHT 219 04/06/2024 12:38:03 [place] BMI 33 kg/m2 04/06/2024 12:38:03 [place] HEIGHT 68 04/06/2024 12:38:03 [place] PULSE 65 04/06/2024 12:38:03 [place] Encounters Combined list of: 1) Encounters from Department of Veterans Affairs facilities going backup to the last 18 months, not all [place] inpatient encounters are included; 2) Encounters from the Department of Defense facilities going backup to 280 months. Location Location Details Encounter Type Encounter Number Reason For Visit Attending Provider ADM Date DC Date Status Disposition Source [facility] OFFICE O/P EST MOD 30-39 MIN [id number] Diagnos is: ICD-10- CM F43.10 Post-tr aumatic stress disorde r, unspeci fied LUCINA BAJWA J 12/10 [facility] [place] [facility] Outpatient Encounter [id number] 12/10 [facility] [place] [facility] OFFICE O/P EST MOD 30-39 MIN [id number] Diagnos is: ICD-10- CM F43.10 Post-tr aumatic stress disorde r, unspeci vianey ROYALLER OY F 12/22 [facility] OFFICE O/P EST LOW 20-29 MIN [id number] Diagnos is: ICD-10- CM F43.10 Post-tr aumatic stress disorde r, unspeci vianey ROYALLER OY F 01/19 [place] [facility] [place] [facility] Outpatient Encounter [id number] 02/08 [facility] [place] [facility] [place] [facility] Encounter [id number] 02/09 [facility] [place] [facility] [place] [facility] En[facility] [id number] 02/09 [facility] [place] [facility] OFFICE O/P EST LOW 20 MIN [id number] Diagnos is: ICD-10- CM F43.10 Post-tr aumatic stress disorde r, unspeci vianey ROYALLER OY F 03/30 [place] [facility] [place] [facility] Encounter [id number] 04/21 [facility] [place] [facility] [place] [facility] Outpatient Encounter [id number] Laverne SHIELDS JACQUELINE 04/21 [facility] [place] [facility] [facility] [place] [facility] INTRM OPH EXAM NEW PATIENT [id number] Diagnos is: ICD-10- CM 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, bilater al KODY,AN JANIS E 04/21 [facility] [place] [facility] [facility] [place] [facility] Outpatient Encounter [id number] 05/03 [facility] [place] [facility] [place] OFFICE O/P EST MOD 30 MIN [id number] Diagnos is: ICD-10- CM N52.9 Male erectil e dysfunc tion, unspeci fied BRODY BROOKS 05/06 [place] [facility] [place] [facility] Outpatient Encounter [id number] 05/06 [facility] [place] [facility] [place] [facility] Outpatient Encounter [id number] 05/24 [facility] [place] [place] OFFICE O/P EST LOW 20 MIN [id number] Diagnos is: ICD-10- CM F43.10 Post-tr aumatic stress disorde r, unspeci BERENICE Mclaughlin OY F 05/31 [place] OFF[place] O/P EST LOW 20 MIN [id number] Diagnos is: ICD-10- CM F43.10 Post-tr aumatic stress disorde r, unspeci BERENICE Mclaughlin OY F 07/26 [place] [facility] [place] [facility] Outpatient Encounter [id number] 08/11 [facility] [place] [place] [facility] [place] [facility] Outpatient Encounter [id number] [facility] [place] [facility] OFFICE O/P EST LOW 20 MIN [id number] 1BY. 51 Diagnos is: ICD-10- CM F43.10 Post-tr aumatic stress disorde r, unspeci fied GENNY,LER OY F 10/25 [place] [facility] [place] [facility] Outpatient Encounter [id number] [facility] [place] [facility] CASE MANAGEMENT [id number] 1BY. 66 Diagnos is: ICD-10- CM F32.A Depress ion, unspeci fied GUANACO,W GENE 01/[facility] LOW 20 MIN [id number] Diagnos is: ICD-10- CM F32.A Depress ion, unspeci fied GENNY,LER OY F 01/24 [place] [facility] [place] [facility] Outpatient Encounter [id number] [facility] [place] [place] [facility] [place] [facility] Outpatient Encounter [id number] [facility] [place] [facility] NQHP OL DIG ASSMT&MGMT 5-10 [id number] Diagnos is: ICD-10- CM N52.9 Male erectil e dysfunc tion, unspeci fied ORTEGA,ZULEYKA MANN A 04/06 [facility]P EST MOD 30 MIN [id number] Diagnos is: ICD-10- CM F43.10 Post-tr aumatic stress disorde r, unspeci fied Sarah MCCARTNEYAN M 04/06 [facility] [place]ELD [place] OFFICE O/P EST LOW 20 MIN [id number] 1BY. Diagnos is: ICD-10- CM F43.10 Post-tr aumatic stress disorde r, unspeci magdaleneBERENICE Engle OY F 04/25 [facility] [place] [facility] Outpatient Encounter [id number] [facility] [place] [facility] [facility] [place] [facility] Outpatient Encounter [id number] [facility] [place] [facility] [place] OFFICE O/P EST MOD 30 MIN [id number] 1BY. Diagnos is: ICD-10- CM G47.30 Sleep apnea, unspeci CARROL Gurrola 06/02 [facility] IE Procedures Combined list of: 1) Procedures from Department of Veterans Affairs facilities going back up to thelast 18 months, not all [place] non-surgical procedures are included; 2) All procedures from the Department of Defense facilities. Procedure Procedure Type Code Date Perfomer Comments Sourc e No data available for this section Ambulatory P harmacy Social History Combined list of available smoking, tobacco, and other social history from Department of Defense and Veterans Affairs facilities. Social History Type Response Date Comment Sourc e Tobacco smoking status [facility]-TOBACCO NEVER USED 10/26/19 [place] History of tobacco use [place]-[facility] NEVER USED 09/03/2022 [place] Assessment and Plan Combined list of future care activities from Department of Defense and Veterans Affairs facilities (e.g., assessment and plan notes, appointments, orders, and referrals). Additional future care activities may be listed in the Plan of Care section. Result Assessment and Plan Date Source Assessment and Plan No data available for this section 06/05/2024 Ambulatory Pharmacy Plan of Care List of future care activities from Department of Veterans Affairs facilities. Additional future care activities may be listed in the Assessment and Plan section. Date/Time Care Activity Care Activity Detail Facili ty 10/24/2024 AMBULATORY - PSYCHIATRY AMBULATORY - PSYC [facility] Functional Status Combined list of recent functional and cognitive assessments recorded at Department of Defense and Veterans Affairs (VA).VA Functional [place] Measurement (FIM) Scale: 1 = Total Assistance (Subject = 0% +), 2 = Maximal Assistance (Subject = 25% +), 3 = Moderate Assistance (Subject = 50% +), 4 = Minimal Assistance (Subject = 75% +), 5 = Supervision, 6 = Modified Steuben (Device), 7 = Complete [place] (Timely, Safely). Assessment Date/Time Source Assessment Type Assessment Skill Assessment Score Assessment Details No data available for this section
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
--- OUTSIDE RECORDS SUMMARY | 2024-06-05 08:29 | XMS_ITS ---
Author Name [facility] Organization [facility] Address [address] [place] [address] Care Team Providers Care Cargo Tank Mechanic Name Role Phone ROSANNA SANTILLAN Primary Care [...] PRESCRIPT ION RX Apr 20, 2022 THPRX [id number] 2101 EVA VARGAS PATIENT [facility] PLAN TORI Aguayo Apr 20, 2022 [facility] [id number] 05 EVA VARGAS PATIENT Selected Encounter This section includes the information on record at [place] for the Encounter. Date/Time Encounter Type Encounter Description Reason Pro vider Source Jun 01, 2024 01:42 PM Outpatient Encounter PRIMARY CARE/MEDICINE IHE Encounter Template [...] 02, 2024 09:30 AM AMBULATORY - MEDICINE [facility] NTRL WSTRN [facility] Oct 24, 2024 09:00 AM AMBULATORY - PSYCHIATRY [facility] Active, Pending, [...] of theEncounter. The data comes from all [place] treatment [facility]. Test Date/Time Test Type Test Details Facility Name May 04, 2024 12:00 AM Laboratory - Chemi stry Order BASIC METABOLIC PANEL (fasting) BLOOD (SST-SERUM) [facility] Encounter Notes: All associated encounter notes This section contains the clinical notes associated to the Encounter. Date/Time Encounter Note(s) Provider Source Jun 01, 2024 01:42 PM ADMINISTRATIVE NOT E: LOCAL TITLE: ADMINISTRATIVE NOTE STANDARD TITLE: ADMINISTRATIVE NOTE DATE OF NOTE: JUN 01, 2024@13:42 ENTRY DATE: JUN 01, 2024@13:42:43 AUTHOR: PAULA MARS EXP COSIGNER: URGENCY: STATUS: COMPLETED Electric Hoist Operator called to [ ] schedule primary care appt [X} cancel primary care appt [ ] Scheduled appt [ ] Unable to scheduled appt SPOKE WITH: [place] SCHEDULED APPT - TYPE: APPT SCHEDULED ON AT [ ] [facility] APPT SCHEDULED ON AT [ ] NON [facility] APPT SCHED ON AT [ ] UNABLE TO REACH : [ ] Left voicemail with direct callback number [ ] Mailed Letter will call back to r/s /renita/ PAULA LOPES Signed: 06/01/2024 13:43 PAULA MARS
--- OUTSIDE RECORDS SUMMARY | 2024-06-05 08:29 | XMS_ITS | Encounter Summary ---
Author Name [facility] [place] Address [address] [place] [address] Care Team Providers Care Repairer Veneer Sheet Name Role Phone ROSANNA SANTILLAN Primary Care [...] PRESCRIPT ION RX Apr 20, 2022 THPRX [id number] 2101 EVA VARGAS PATIENT FAMILY HEALTH PLAN KVNG BROWNLEE GAMA CHAPMAN E Apr 20, 2022 [id number] 05 EVA VARGAS PATIENT Selected Encounter This section includes the information on record at [place] for the Encounter. Date/Time Encounter Type Encounter [...] care activities for the patient from all [place] treatmentfacilities. This section includes future appointments and future orders which are active, pending or scheduled. Future Appointments This section includes appointments that were scheduled to occur 6 months from the date of the Encounter, up to a maximum of 20 appointments. The data comes from all [place] treatment facilities. Appointment Date/Time Appointment Type Appointme nt Facility Name Jan 25, 2024 08:30 AM AMBULATORY - PSYCHIATRY [facility] Apr 06, 2024 12:30 PM AMBULATORY - MEDICINE [facility] Social History: Smoking Status (Most current) and Tobacco Use (All prior to encounter date) This section includes the most current, and the historical, smoking and tobacco- related health factors from the [place] facility where the Encounter took place. Current Smoking Status This section includes the most current smoking, or tobacco-related health factor, from the [place] facility where the Encounter took place. Date/Time Current Smoking Status Comment Stanislaw fox Oct 26, 2023 08:30 AM [place]-TOBACCO NEVER USED [place] Tobacco Use History This section includes a history of the smoking, or tobacco-related health factors, that were collected on or before the date of the Encounter. The data comes from the [place] facility where the Encounter took place. 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 some - no hx of S/I or H/I He is followed by [facility] for counseling - going through divorce [...] this patient. I asked the patient call [phone] ([facility]) or to come to open access if needed Suicide Screen: C-SSRS Screening Geraldine Suicide Severity Rating Scale (C-SSRS) screener 1. [...] of active outpatient prescriptions dispensed from this [place] (local) and dispensed from another [place] or [facility]D facility (remote) as well as [...] patient has never used tobacco. /renita/ Monroe Roayl APRN, STAFF CLINICAL NURSE SPECIALIST Signed: 10/26/2023 08:54 MONROE ROYAL
--- OUTSIDE RECORDS SUMMARY | 2024-06-05 08:29 | XMS_ITS | Encounter Summary ---
Author Name [facility] [place] Organization [facility] [place] Address [address] [place] [address] Care Team Providers Care Tree Driller Name Role Phone ROSANNA SANTILLAN Primary Care [...] PRESCRIPT ION RX Apr 20, 2022 THPRX [id number] 210 EVA VARGAS PATIENT [facility] HEALTH PLAN TORI Aguayo Apr 20, 2022 [id number] 05 EVA VARGAS PATIENT Selected Encounter This [...] 08:30 AM AMBULATORY - PSYCHIATRY [facility] Encounter Notes: All associated encounter notes This section contains the clinical notes associated to the Encounter. Date/Time Encounter Note(s) Provider Source Aug 12, 2023 09:58 PM PHARMACY NOTE: LOCAL TITLE: V1 PHARMACY CUSTOMER CARE MEDICATION RENEWAL STANDARD TITLE: PHARMACY NOTE DATE OF NOTE: AUG 12, 2023@21:58 ENTRY DATE: AUG 12, 2023@21:58:54 AUTHOR: MARI ALFORD EXP COSIGNER: URGENCY: STATUS: COMPLETED Date: Jul Division: [facility] referred by Pharmacy Call Center for medication renewal: Non-controlled/maintenan ce medication Medications requested: [id number] BUPROPION HCL 150MG 12HR SA TAB Defer to primary care provider , Defer to specialty clinic To be mailed . Please review and renew if appropriate. *This note was generated by [facility]/[place] Pharmacy Customer Care. If you have any questions or need assistance, do not contact this author. Please refer all questions to your local, on-site pharmacy departments. /renita/ MARI ALFORD CPhT [facility] [place] [place], [place]/Pharmacy Customer Care Signed: 08/12/2023 21:59 Receipt Acknowledged By: 08/16/2023 15:05 /renita/ Monroe Villaseñor APRN, STAFF CLINICAL NURSE SPECIALIST [facility]
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
== END 2024-06-05 08:09 | disposition home or self-care (01) ==
LOC: HO.BBR 08:08
PROVIDERS: Visit Provider Internal Medicine Endocrinology, Diabetes & Metabolism
DX: Z13.89 Encounter for screening for other disorder (principal)

== ENCOUNTER 2024-07-10 09:50 | Outpatient (REF) | payer OTHER, SELFPAY ==
--- OUTSIDE RECORDS SUMMARY | 2024-07-10 10:10 | XMS_ITS | Encounter Summary ---
Author Organization [facility] Address [address] [place] [address] Care Team Providers Care Icu Manager Name Role Phone Yon Bustos MD Primary Care Provider Unava ilxiao Encounter Details Date Type Department Care Team Description 09/27/2020 Release of Information Medical Records [address] [place] [id number] Abstract, Provider Social History Tobacco Use Types Packs/Day Years Used Date Smoking Tobacco: Never Assessed Sex Assigned at Date Recorded Not on file COVID-19 Exposure Response Date Recorded In the last month, have you been in contact with someone who was confirmed or suspected to have Coronavirus / COVID-19? No / Unsure 09/24/2020 12:56 PM EDT documented as of this encounter Plan of Treatment Not on file documented as of this encounter Visit Diagnoses Not on filedocumented in this encounter Care Teams Icu Manager Relationship Specialty Start Date End Date Yon Bustos MD PCP - General Internal Medicine 09/23/20 documented as of this encounter
--- OUTSIDE RECORDS SUMMARY | 2024-07-10 10:11 | XMS_ITS | Continuity of Care Document ---
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 Performing Lab: [facility] [address] [place] BASIC METABOLI C PANEL (fasting ) CREATININE [MASS/VOLU ME] IN SERUM OR PLASMA 1.14 mg/dL 0.50 - 1.40 04/24 Specimen Type: SERUM No comment entered. Ordering Provider: MARQUEZ DIAZ Report Released Date/Time: Apr 07, 2024 09:00 AM Reporting Lab: [facility] [address] [address] Performing Lab: [address] [address] [place] BASIC METABOLI C PANEL (fasting ) GLOMERULAR FILTRATION RATE/1.73 SQ M.PREDICTE D [VOLUME RATE/AREA] IN SERUM, PLASMA OR BLOOD BY CREATININE -BASED FORMULA (CKD-EPI 2020) 84 mL/min 60 04/24 Specimen Type: SERUM No comment entered. Ordering Provider: MARQUEZ DIAZ Report Released Date/Time: Apr 07, 2024 09:00 AM Reporting Lab: [facility] [address] [address] Performing Lab: [address] [address] [place] LIPID PANEL FASTING CHOLESTERO L [MASS/VOLU ME] IN SERUM OR PLASMA 201 mg/dL 04/24 H Specimen Type: SERUM No comment entered. Ordering Provider: MARQUEZ DIAZ Report Released Date/Time: Apr 07, 2024 09:00 AM Reporting Lab: [facility] [address] Performing Lab: [facility] [address] [address] [place] LIPID PANEL FASTING TRIGLYCERI DE [MASS/VOLU ME] IN SERUM OR PLASMA 86 mg/dL 0 - 150 04/24 Specimen Type: SERUM No comment entered. Ordering Provider: MARQUEZ DIAZ Report Released Date/Time: Apr 07, 2024 09:00 AM Reporting Lab: [facility] [address] [address] Performing Lab: [facility] [address] [facility] [address] [place] LIPID PANEL FASTING CHOLESTERO L IN LDL [MASS/VOLU ME] IN SERUM OR PLASMA BY CUAUHTEMOC N 132 mg/dL 0 - 129 04/24 H Specimen Type: SERUM No comment entered. Ordering Provider: MARQUEZ DIAZ Report Released Date/Time: Apr 07, 2024 09:00 AM Reporting Lab: [facility] [address] [facility] [address] Performing Lab: [facility] [address] [address] [place] LIPID PANEL FASTING CHOLESTERO L.TOTAL/CH OLESTEROL IN HDL [MASS RATIO] IN SERUM OR PLASMA 3.9 04/24 Specimen Type: SERUM No comment entered. Ordering Provider: MARQUEZ DIAZ Report Released Date/Time: Apr 07, 2024 09:00 AM Reporting Lab: [facility] [address] [facility] [address] Performing Lab: [facility] [address] [address] [place] LIPID PANEL FASTING CHOLESTERO L IN HDL [MASS/VOLU ME] IN SERUM OR PLASMA 52 mg/dL 40 - 60 04/24 Specimen Type: SERUM No comment entered. Ordering Provider: MARQUEZ DIAZ Report Released Date/Time: Apr 07, 2024 09:00 AM Reporting Lab: [facility] [address] [facility] [address] Performing Lab: [facility] [address] [place] LIVER FUNCTION PROTEIN [MASS/VOLU ME] IN SERUM OR PLASMA 7.0 g/dL 6.0 - 8.3 04/24 Specimen Type: SERUM No comment entered. Ordering Provider: MARQUEZ DIAZ Report Released Date/Time: Apr 07, 2024 09:00 AM Reporting Lab: [facility] [place] [facility] [address] [facility] [address] Performing Lab: [facility] [address] [facility] [address] [facility]CTION ALBUMIN [MASS/VOLU ME] IN SERUM OR PLASMA 3.8 g/dL 3.5 - 5.0 04/24 Specimen Type: SERUM No comment entered. Ordering Provider: MARQUEZ DIAZ Report Released Date/Time: Apr 07, 2024 09:00 AM Reporting Lab: [facility] [address] [facility] [address] Performing Lab: [facility] [address] [facility] LIVER FUNCTION ALKALINE PHOSPHATAS E [ENZYMATIC ACTIVITY/V OLUME] IN SERUM OR PLASMA 58 U/L 40 - 150 04/24 Specimen Type: SERUM No comment entered. Ordering Provider: MARQUEZ DIAZ Report Released Date/Time: Apr 07, 2024 09:00 AM Reporting Lab: [facility] [address] [address] Performing Lab: [facility] [address] [address] [facility] LIVER FUNCTION ASPARTATE AMINOTRANS FERASE [ENZYMATIC ACTIVITY/V OLUME] IN SERUM OR PLASMA 26 U/L 5 - 34 04/24 Specimen Type: SERUM No comment entered. Ordering Provider: MARQUEZ DIAZ Report Released Date/Time: Apr 07, 2024 09:00 AM Reporting Lab: [facility] [address] [address] Performing Lab: [facility] [address] [address] [facility] L[facility] FUNCTION ALANINE AMINOTRANS FERASE [ENZYMATIC ACTIVITY/V OLUME] IN SERUM OR PLASMA 35 U/L 04/24 Specimen Type: SERUM No comment entered. Ordering Provider: MARQUEZ DIAZ Report Released Date/Time: Apr 07, 2024 09:00 AM Reporting Lab: [facility] [address] [address] Performing Lab: [facility] [address] [address] [place] LIVER FUNCTION BILIRUBIN. TOTAL [MASS/VOLU ME] IN SERUM OR PLASMA 0.6 mg/dL 0.2 - 1.2 04/24 Specimen Type: SERUM No comment entered. Ordering Provider: MARQUEZ DIAZ Report Released Date/Time: Apr 07, 2024 09:00 AM Reporting Lab: [facility] [address] [address] Performing Lab: [facility] [address] [address] [place] CBC AND DIFF (AUTO) LEUKOCYTES [#/VOLUME] IN BLOOD BY AUTOMATED COUNT 5.41 10*3/uL 4.50 - 11.00 04/24 Specimen Type: BLOOD No comment entered. Ordering Provider: MARQUEZ DIAZ Report Released Date/Time: Apr 07, 2024 09:00 AM Reporting Lab: [facility] TR[facility] [address] [address] Performing Lab: [facility] [address] [place] CBC AND DIFF (AUTO) ERYTHROCYT ES [#/VOLUME] IN BLOOD BY AUTOMATED COUNT 5.55 10*6/uL 4.23 - 5.66 04/24 Specimen Type: BLOOD No comment entered. Ordering Provider: MARQUEZ DIAZ Report Released Date/Time: Apr 07, 2024 09:00 AM Reporting Lab: [facility] [address] [address] Performing Lab: [facility] [address] [place] CBC AND DIFF (AUTO) HEMOGLOBIN [MASS/VOLU ME] IN BLOOD 17.7 g/dL 12.8 - 17 04/24 H Specimen Type: BLOOD No comment entered. Ordering Provider: MARQUEZ DIAZ Report Released Date/Time: Apr 07, 2024 09:00 AM Reporting Lab: [facility] [place] [facility] [address] [facility] [address] Performing Lab: [facility] [place] [facility] [address] [facility] [address] [place] CBC AND DIFF (AUTO) HEMATOCRIT [VOLUME FRACTION] OF BLOOD BY AUTOMATED COUNT 52.8 39.2 - 50.4 04/24 H Specimen Type: BLOOD No comment entered. Ordering Provider: MARQUEZ DIAZ Report Released Date/Time: Apr 07, 2024 09:00 AM Reporting Lab: [facility] [place] [address] [address] Performing Lab: [facility] [place] [facility] [address] [facility] [address] [place] CBC AND DIFF (AUTO) MCV [ENTITIC VOLUME] BY AUTOMATED COUNT 95.1 fL 82 - 99 04/24 Specimen Type: BLOOD No comment entered. Ordering Provider: MARQUEZ DIAZ Report Released Date/Time: Apr 07, 2024 09:00 AM Reporting Lab: [facility] [place] [facility] [address] [facility] [address] Performing Lab: [facility] [place] [facility] [address] [facility] [address] [place] CBC AND DIFF (AUTO) MCHC [MASS/VOLU ME] BY AUTOMATED COUNT 33.5 g/dL 30.8 - 35.1 04/24 Specimen Type: BLOOD No comment entered. Ordering Provider: MARQUEZ DIAZ Report Released Date/Time: Apr 07, 2024 09:00 AM Reporting Lab: [facility] [place] [facility] [address] [facility] [address] Performing Lab: [facility] [place] [address] [address] [place] CBC AND DIFF (AUTO) PLATELETS [#/VOLUME] IN BLOOD BY AUTOMATED COUNT 221 10*3/uL 140 - 360 04/24 Specimen Type: BLOOD No comment entered. Ordering Provider: MARQUEZ DIAZ Report Released Date/Time: Apr 07, 2024 09:00 AM Reporting Lab: [facility] [place] [address] [address] Performing Lab: [facility] [place] [address] [address] [place] CBC AND DIFF (AUTO) ERYTHROCYT E DISTRIBUTI ON WIDTH [RATIO] BY AUTOMATED COUNT 12.6 12.0 - 16.0 04/24 Specimen Type: BLOOD No comment entered. Ordering Provider: MARQUEZ DIAZ Report Released Date/Time: Apr 07, 2024 09:00 AM Reporting Lab: [facility] [place] [address] [address] Performing Lab: [facility] [place] [address] [address] [place] CBC AND DIFF (AUTO) MONOCYTES [#/VOLUME] IN BLOOD BY AUTOMATED COUNT 0.61 10*3/uL 0.30 - 1.10 04/24 Specimen Type: BLOOD No comment entered. Ordering Provider: MARQUEZ DIAZ Report Released Date/Time: Apr 07, 2024 09:00 AM Reporting Lab: [facility] [place] [address] [address] Performing Lab: [facility] [place] [address] [address] [place] CBC AND DIFF (AUTO) MCH [ENTITIC MASS] BY AUTOMATED COUNT 31.9 pg 26.2 - 32.6 04/24 Specimen Type: BLOOD No comment entered. Ordering Provider: MARQUEZ DIAZ Report Released Date/Time: Apr 07, 2024 09:00 AM Reporting Lab: [facility] [place] [facility] [address] [facility] [address] Performing Lab: [facility] [place] [facility] [address] [facility] [address] [place] CBC AND DIFF (AUTO) NEUTROPHIL S/100 LEUKOCYTES IN BLOOD BY AUTOMATED COUNT 51.5 43.7 - 75.8 04/24 Specimen Type: BLOOD No comment entered. Ordering Provider: MARQUEZ DIAZ Report Released Date/Time: Apr 07, 2024 09:00 AM Reporting Lab: [facility] [place] [facility] [address] [facility] [address] Performing Lab: [facility] [place] [address] [address] [place] CBC AND DIFF (AUTO) LYMPHOCYTE S/100 LEUKOCYTES IN BLOOD BY AUTOMATED COUNT 33.5 14.0 - 42.3 04/24 Specimen Type: BLOOD No comment entered. Ordering Provider: MARQUEZ DIAZ Report Released Date/Time: Apr 07, 2024 09:00 AM Reporting Lab: [facility] [place] [facility] [address] [facility] [address] Performing Lab: [facility] [place] [address] [address] [place] CBC AND DIFF (AUTO) MONOCYTES/ 100 LEUKOCYTES IN BLOOD BY AUTOMATED COUNT 11.3 5.1 - 13.7 04/24 Specimen Type: BLOOD No comment entered. Ordering Provider: MARQUEZ DIAZ Report Released Date/Time: Apr 07, 2024 09:00 AM Reporting Lab: [facility] [place] [facility] [address] [facility] [address] Performing Lab: [facility] [place] [address] [address] [place] CBC AND DIFF (AUTO) EOSINOPHIL S/100 LEUKOCYTES IN BLOOD BY AUTOMATED COUNT 1.5 0.4 - 6.8 04/24 Specimen Type: BLOOD No comment entered. Ordering Provider: MARQUEZ DIAZ Report Released Date/Time: Apr 07, 2024 09:00 AM Reporting Lab: [facility] [place] [facility] [address] [facility] [address] Performing Lab: [facility] [place] [facility] [address] [facility] [address] [place] CBC AND DIFF (AUTO) BASOPHILS/ 100 LEUKOCYTES IN BLOOD BY AUTOMATED COUNT 1.1 0.1 - 2.0 04/24 Specimen Type: BLOOD No comment entered. Ordering Provider: MARQUEZ DIAZ Report Released Date/Time: Apr 07, 2024 09:00 AM Reporting Lab: [facility] [place] [address] [address] Performing Lab: [facility] [place] [address] [address] [place] CBC AND DIFF (AUTO) NEUTROPHIL S [#/VOLUME] IN BLOOD BY AUTOMATED COUNT 2.79 10*3/uL 2.20 - 7.60 04/24 Specimen Type: BLOOD No comment entered. Ordering Provider: MARQUEZ DIAZ Report Released Date/Time: Apr 07, 2024 09:00 AM Reporting Lab: [facility] [place] [address] [address] Performing Lab: [facility] [place] [address] [address] [place] CBC AND DIFF (AUTO) LYMPHOCYTE S [#/VOLUME] IN BLOOD BY AUTOMATED COUNT 1.81 10*3/uL 1.00 - 3.20 04/24 Specimen Type: BLOOD No comment entered. Ordering Provider: MARQUEZ DIAZ Report Released Date/Time: Apr 07, 2024 09:00 AM Reporting Lab: [facility] [place] [address] [address] Performing Lab: [facility] [place] [address] [address] [place] CBC AND DIFF (AUTO) EOSINOPHIL S [#/VOLUME] IN BLOOD BY AUTOMATED COUNT 0.08 10*3/uL 0.03 - 0.44 04/24 Specimen Type: BLOOD No comment entered. Ordering Provider: MARQUEZ DIAZ Report Released Date/Time: Apr 07, 2024 09:00 AM Reporting Lab: [facility] [address] [address] Performing Lab: [facility] [address] [address] [place] CBC AND DIFF (AUTO) BASOPHILS [#/VOLUME] IN BLOOD BY AUTOMATED COUNT 0.06 10*3/uL 0.01 - 0.13 04/24 Specimen Type: BLOOD No comment entered. Ordering Provider: MARQUEZ DIAZ Report Released Date/Time: Apr 07, 2024 09:00 AM Reporting Lab: [facility] [address] [address] Performing Lab: [facility] [address] [address] [place] CBC AND DIFF (AUTO) IMMATURE GRANULOCYT ES/100 LEUKOCYTES IN BLOOD BY AUTOMATED COUNT 1.1 0.0 - 0.7 04/24 H Specimen Type: BLOOD No comment entered. Ordering Provider: MARQUEZ DIAZ Report Released Date/Time: Apr 07, 2024 09:00 AM Reporting Lab: [facility] [address] [address] Performing Lab: [facility] [address] [address] [place] CBC AND DIFF (AUTO) IMMATURE GRANULOCYT ES [#/VOLUME] IN BLOOD BY AUTOMATED COUNT 0.06 10*3/uL 0.00 - 0.06 04/24 Specimen Type: BLOOD No comment entered. Ordering Provider: MARQUEZ DIAZ Report Released Date/Time: Apr 07, 2024 09:00 AM Reporting Lab: [facility] [address] [address] Performing Lab: [facility] [address] [facility] [address] [place] CBC AND DIFF (AUTO) NUCLEATED ERYTHROCYT ES/100 LEUKOCYTES [RATIO] IN BLOOD BY AUTOMATED COUNT 0.0 0.0 - 0.0 04/24 Specimen Type: BLOOD No comment entered. Ordering Provider: MARQUEZ DIAZ Report Released Date/Time: Apr 07, 2024 09:00 AM Reporting Lab: [facility] [address] [facility] [address] Performing Lab: [facility] [address] [facility] [address] [place] CBC AND DIFF (AUTO) NUCLEATED ERYTHROCYT ES [#/VOLUME] IN BLOOD BY AUTOMATED COUNT 0.00 10*3/uL 0.00 - 0.00 04/24 Specimen Type: BLOOD No comment entered. Ordering Provider: MARQUEZ DIAZ Report Released Date/Time: Apr 07, 2024 09:00 AM Reporting Lab: [facility] [address] [facility] [address] Performing Lab: [facility] [address] [address] [place] HEMOGLOB IN A1C PANEL HEMOGLOBIN [...] Apr 07, 2024 09:00 AM Reporting Lab: [address] [address] Performing Lab: [facility] [place] [address] [place] TSH THYROTROPI N [UNITS/VOL UME] IN SERUM OR PLASMA 1.10 u[IU]/mL 0.35 - 5.00 04/24 Specimen Type: SERUM No comment entered. Ordering Provider: MARQUEZ DIAZ Report Released Date/Time: Apr 07, 2024 09:00 AM Reporting Lab: [facility] [place] [facility] [address] [facility] [address] Performing Lab: [facility] [place] [facility] [address] [facility] [address] [facility] Vital Signs Combined list of inpatient and outpatient Vital Signs from Department of Defense and Veterans Affairs, ranging from 12 months to all on record, depending upon the facility. Vital Sign Value Date Comments Source SYSTOLIC BLOOD PRESSURE 126 06/03/19 25 09:23:35 [facility] [place] [facility] DIASTOLIC BLOOD PRESSURE 77 025 09:23:35 [facility] [place] [facility] PULSE OXIMETRY 97 06/02/2024 09:23:35 [facility] [place] [facility] WEIGHT 220 06/02/2024 09:23:35 [facility] [place] [facility] BMI 32 kg/m2 06/02/2024 09:23:35 [facility] [place] [facility] HEIGHT 70 06/02/2024 09:23:35 [facility] [place] [facility] TEMPERATURE 97.7 06/02/2024 09:23:35 [facility] [place] [facility] PULSE 77 06/02/2024 09:23:35 [facility] [place] [facility] RESPIRATION 18 06/02/2024 09:23:35 [facility] [place] [facility] SYSTOLIC BLOOD PRESSURE 138 04/06/19 25 12:38:03 [place] DIASTOLIC BLOOD PRESSURE 88 025 12:38:03 [place] PULSE OXIMETRY 99 04/06/2024 12:38:03 [place] WEIGHT 219 04/06/2024 12:38:03 [place] BMI 33 kg/m2 04/06/2024 12:38:03 [place] HEIGHT 68 04/06/2024 12:38:03 [place] PULSE 65 04/06/2024 12:38:03 [place] Encounters Combined list of: 1) Encounters from Department of Veterans Affairs facilities going backup to the last 18 months, not all VA inpatient encounters are included; 2) Encounters from the Department of Defense facilities going backup to 280 months. Location Location Details Encounter Type Encounter Number Reason For Visit Attending Provider ADM Date DC Date Status Disposition Source [address] [place] [address]([facility] [place]) DENTAL [id number] ARTI DARDEN 10/19 Released w/o Limitations [facility](D ental Clinic [place]) [facility](Phy s Exam [place]) TELE CONSULT [id number] BRANDON ESPINAL 11/22 [facility](P hys [facility]am [place]) [facility](Fam zena Practice [place]) OUTPATIENT [id number] migrain es/x 2 months/ sciorti no ISHA WYATT 09/09 Released w/o Limitations [facility](F amily Practic e [place]) [facility] [place]) OUTPATIENT [id number] F/U MEDS/SC ISHA HARRELL 10/11 Released w/o Limitations [facility](F amily Practic e [place]) [facility] [place]) OUTPATIENT [id number] FEVER 101.0 CONGEST ED LUNGS/S CIWESLY PARKINSON 12/26 Released with Work/Duty Limitations [facility](F amily Practic e [place]) [facility](PHA Cell) OUTPATIENT [id number] PHA/AF/ SCIORTI NO JOHNY CROCKETT 02/06 Released w/o Limitations [facility](P [place] Cell) [facility]am [facility] Practice [place]) TELE CONSULT [id number] Admin: CARROL Garcia 03/03 [facility](F amily Practic e [place]) [facility]am [facility] [place]) OUTPATIENT [id number] BACK PAIN 08/01/SC ARTI MORAES 05/14 Released w/o Limitations [employer](F amily Practic e [place]) [facility] [place] [address]([facility]) OUTPATIENT [id number] 1000 - LT ANKLE PAIN [TDY] MARK VELÁZQUEZ T 08/06 Released with Work/Duty Limitations [facility] [place] [address]([facility]) [place] [address]([facility] [place]) OUTPATIENT [id number] POSS L ankle sprain LESLIE GUILLEN Marcus 08/27 Released w/o Limitations [facility] [place] [address]([facility], [facility]) [employer]([facility] [place]) OUTPATIENT [id number] right ankle pain/ sciorti radhao JACKY CANALES 10/17 Released w/o Limitations [employer]([facility] [place]) [facility] [employer]([facility] Team A[facility] OUTPATIENT [id number] ankle/r eferral BHARTI TERESA 12/18 Released with Work/Duty Limitations [facility] [employer]([facility] Team [facility]) [facility] [employer]([facility]) OUTPATIENT [id number] ANKLE INJURY BAYRONELISA SKYLAR 01/06 Released w/o Limitations [facility] [employer]([facility] Team [facility]) [facility] [employer]([facility] Team A) OUTPATIENT [id number] GEORGE SABA 03/24 Released w/o Limitations [facility] [employer]([facility] Team [facility]) [facility] [employer]([facility]) OUTPATIENT [id number] UPDATE PROFILE BHARTI TERESA 05/12 Released with Work/Duty Limitations [facility] [employer]([facility] Team [facility]) [facility] [employer](Opt ometry) OUTPATIENT [id number] EYE EXAM ABELARDO JULIAN 05/20 Released w/o Limitations [facility] [employer](O ptometr y) [facility] [employer]([facility] Team A) TELE CONSULT [id number] Notes Entered by: HORACE ENGLISH 27 May 2011 [id number] ------- ------- ------- ------- -- PROFILE WAS DONE SUMI DUTTON 05/26 Advice Assessment [facility](A [facility] Team A) [facility] Team A) TELE CONSULT [id number] Notes Entered by: RAJAT ZHU 16 Jun 2011 1437 ------- ------- ------- ------- -- Treatme nt for STD antonyur e BHARTI TERESA 06/15 [facility](A [facility] Team A) [facility] Team A) TELE CONSULT [id number] Notes Entered by: RAMSEY JC 26 Jun 2011 1122 ------- ------- ------- ------- -- Needs SUMI Mccollum 06/25 Advice Assessment [facility](A [facility] Team A) [facility] Team A) OUTPATIENT [id number] pre-dep loyment BHARTI TERESA 08/20 Released w/o Limitations [facility](A [facility] Team A) [facility] Medicine [facility]) TELE CONSULT [id number] Notes Entered by: DELLA FLORES 05 Oct 2011 1044 ------- ------- ------- ------- -- [facility] LUISITO FLORES 10/04 [facility] Medicin e [facility]) Theater Facility OUTPATIENT [id number] Theater Provider 12/14 Released w/o Limitations [facility] OUTPATIENT [id number] Theater Provider 03/07 Sick at Home/Quarter s [facility] OUTPATIENT [id number] Theater Provider 04/30 Released w/o Limitations Theater Facilit y [facility] Team A) OUTPATIENT [id number] Notes Entered by: CHITO ALBERTO 16 Jun 2012 1257 ------- ------- ------- ------- -- ANNUAL PHA REMY CHITO E 06/16 Released w/o Limitations [facility](A [facility] Team A) [facility] Team A) OUTPATIENT [id number] [facility]22 Released w/o Limitations [facility](A [facility] Team A) [facility] Team A) TELE CONSULT [id number] Notes Entered by: RAMSEY JC 08 Sep 2012 1255 ------- ------- ------- ------- -- Medicat ion consult ROHAN VELASCO 09/08 Referred for Appointment [facility](A [facility] Team A) [facility] Team A) TELE CONSULT [id number] Notes Entered by: RAMSEY JC 27 Sep 2012 1236 ------- ------- ------- ------- -- Med refill ARSEN JOSEPH 09/27 Medication Refill Forwarded [facility](A [facility] Team A) [facility] Team A) OUTPATIENT [id number] request iveth camacho for vasecto my BHARTI TERESA 11/14 Released w/o Limitations [facility](A [facility] Team A) [facility] TELE CONSULT [id number] Notes Entered by: Elsy WU 29 Nov 2012 1631 ------- ------- ------- ------- -- NETWORK RESULTS 11/28/12 UROLOGY BHARTI TERESA 11/29 [facility] ent [facility]) [facility] Team A) TELE CONSULT [id number] Notes Entered by: ARSEN JOSEPH 13 Feb 2013 1032 ------- ------- ------- ------- -- Medicat ion refill ARSEN JOSEPH 02/13 Referred for Appointment [facility](A [facility] Team A) [facility] Team A) OUTPATIENT [id number] Medicat ion refill, Sleep aid TEE NICE 02/14 Released w/o Limitations [facility](A [facility] Team A) [facility](Opt ometry) OUTPATIENT [id number] eye exam BECKIDede GERBER M 05/23 Released w/o Limitations [facility](O ptometr y) [facility]) OUTPATIENT [id number] Notes Entered by: VICTORIA TRIPP 29 Jun 2013 1322 ------- ------- ------- ------- -- ANNUAL PHA RONY MARTÍNEZ 06/29 Released w/o Limitations [facility]) [facility] Team A[facility] OUTPATIENT [id number] ALAN RICHARDSON 07/11 Released w/o Limitations [facility](A [facility] Team A) [facility] Team A) OUTPATIENT [id number] lower back pain QUINTEN MONTENEGRO 12/07 Released w/o Limitations [facility](A [facility] Team A) [facility] Team A) OUTPATIENT [id number] back pain TEE NICE 12/19 Released with Work/Duty Limitations [facility](A [facility] Team A) [facility] Team A) OUTPATIENT [id number] pain in lower in back going down legs TEE NICE 01/09 Released with Work/Duty Limitations [facility](A [facility] Team A) [facility] Team A) TELE CONSULT [id number] Notes Entered by: IFTIKHAR TYSON 11 Jan 2014 0846 ------- ------- ------- ------- -- Normal L/S DB Cain 01/11 Referred for Appointment [employer](A [facility] Team A) [employer](Alt [facility] Team A) [facility]PAT[facility] [id number] [facility] QUINTEN Perez 01/22 Released w/o Limitations [employer](A [facility] Team A) [employer](Alt [facility] Team A) TELE CONSULT [id number] Notes Entered by: RIMA ARBOLEDA 30 Mar 2014 1316 ------- ------- ------- ------- -- NETWORK RESULTS [facility] PT/01/25 LOOK IN TEE HURT 03/30 [facility](A [facility] Team A) [facility] Team A) TELE CONSULT [id number] Notes Entered by: JUAN GIRON 17 May 2017 1016 ------- ------- ------- ------- -- Con Lv Request STACEY ROSAS 05/17 Referred for Appointment [facility] Team A) [facility] Team A) TELE CONSULT [id number] Notes Entered by: ALLAN ROSAS 27 May 2017 1037 ------- ------- ------- ------- -- Con Leave Request MARICEL MENDIETA 05/27 [facility] Team A) [facility] Team A) TELE CONSULT [id number] Notes Entered by: GRISELDA DALEY 24 Apr 2020 1114 ------- ------- ------- ------- -- Con Leave BRITTANIE SORENSON 04/24 Other Not Elsewhere Classified [facility] Team A) [address] [place] [address](Cash baumann [facility] Team A) TELE CONSULT [id number] Notes Entered by: MAYDA XAVIER 14 Oct 2020929 ------- ------- ------- ------- -- Other - Med Board Echo WAYNEAUBRIEIRENE 10/14 Other Not Elsewhere Classified [address] [place] [address]([facility] Team A) [facility]( [facility]) OUTPATIENT [id number] FAILED TEST/WE KOFI FRANCO 02/12 Released w/o Limitations [facility]( [facility]) [address] [place] [address](Luis E [facility]) TELE CONSULT [id number] Notes Entered by: Elsy CHANG 15 Oct [id number] ------- ------- ------- ------- -- ADAPT Initial Labs TREASURE MCINTYRE 10/[address] [place] [address]([facility] [address] [place] [address]([facility]) TELE CONSULT [id number] Notes Entered by: Elsy CHANG 15 Oct [id number] ------- ------- ------- ------- -- ADAPT Initial Labs [facility] TREASURE MCINTYRE 10/[address] [place] [address]([place] [facility] [place]) MOMODede OFFICE O/P EST LOW 20-29 MIN [id number] Diagnos is: ICD-10- CM F43.10 Post-tr aumatic stress disorde rmakayla LER OY F 01/19 [place] [facility] Outpatient Encounter [id number] 02/08 [facility] Outpatient Encounter [id number] 02/09 [facility] Outpatient Encounter [id number] 02/09 [facility] OFFICE O/P EST LOW 20 MIN [id number] Diagnos is: ICD-10- CM F43.10 Post-tr aumatic stress disorde r, unspeci fied BERENICE ROYAL OY F 03/30 [place] [facility] En[facility] [id number] 04/21 [facility] En[facility] [id number] [place] SHIELDS 04/21 [facility] INTRM OPH EXAM NEW PATIENT [id number] Diagnos is: ICD-10- CM 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, bilater SHANNA Mathur 04/21 [facility] Outpatient Encounter [id number] 05/03 [facility] [place] OFFICE O/P EST MOD 30 MIN [id number] Diagnos is: ICD-10- CM N52.9 Male erectil e dysfunc tion, unspeci fiBRODY Humphries 05/06 [place] [facility] Encounter [id number] 05/06 [facility] Outpatient Encounter [id number] 05/24 [facility] [place] OFFICE O/P EST LOW 20 MIN [id number] Diagnos is: ICD-10- CM F43.10 Post-tr aumatic stress disorde r, unspeci vianey ROYAL,LER OY F 05/31 [place] [facility] OFF[facility] O/P EST LOW 20 MIN [id number] Diagnos is: ICD-10- CM F43.10 Post-tr aumatic stress disorde r, unspeci vianey ROYAL,LER OY F 07/26 [place] [facility] Outpatient Encounter [id number] 08/11 [facility] Outpatient Encounter [id number] 08/17 [facility] [place] OFFICE O/P EST LOW 20 MIN [id number] 1BY. 51 Diagnos is: ICD-10- CM F43.10 Post-tr aumatic stress disorde r, unspeci vianey ROYAL,LER OY F 10/25 [place] [facility] Outpatient Encounter [id number] 01/16 [facility] [place] CASE MANAGEMENT [id number] 1BY. 66 Diagnos is: ICD-10- CM F32.A Depress ion, unspeci fied GUANACO,W GENE 01/24 [place] OFFICE O/P EST LOW 20 MIN [id number] Diagnos is: ICD-10- CM F32.A Depress ion, unspeci vianey ROYAL,LER OY F 01/24 [place] [facility] Outpatient Encounter [id number] 03/17 [facility] Outpatient Encounter [id number] 03/27 [facility] [place] NQHP OL DIG ASSMT&MGMT 5-10 [id number] Diagnos is: ICD-10- CM N52.9 Male erectil e dysfunc tion, unspeci fied ZULEYKA ORTEGA A 04/06 [facility] [place] OFFICE O/P EST MOD 30 MIN [id number] Diagnos is: ICD-10- CM F43.10 Post-tr aumatic stress disorde r, unspeci fied SHERRILL,S VANE M 04/06 [facility] [place] OFFICE O/P EST LOW 20 MIN [id number] 1BY. 07 Diagnos is: ICD-10- CM F43.10 Post-tr aumatic stress disorde r, unspeci fied ROYAL,LER OY F 04/25 [facility] [place] [facility] Outpatient Encounter [id number] 06/01 [place] [facility] [facility] [place] [facility] Outpatient Encounter [id number]/02 [place] [facility] [place] [facility] [place] OFFICE O/P EST MOD 30 MIN [id number] 1BY. Diagnos is: ICD-10- CM G47.30 Sleep apnea, unspeci fied CARROL CLARK 06/02 [facility] IE Procedures Combined list of: 1) Procedures from Department of Veterans Affairs facilities going back up to thelast 18 months, not all VA non-surgical procedures are included; 2) All procedures from the Department of Defense facilities. Procedure Procedure Type Code Date Perfomer Comments Sourc e TONE DECAY TEST [facility]; NOT OTHERWISE SPECIFIED (NOS) [facility]; NOT OTHERWISE SPECIFIED (NOS) [facility]; NOT OTHERWISE SPECIFIED (NOS) [facility] BRIEF EMOTIONAL/BEHAVIORA L ASSESSMENT (EG, DEPRESSION INVENTORY, ATTENTION-DEFICIT/H YPERACTIVITY DISORDER [ADHD] SCALE), WITH SCORING AND DOCUMENTATION, PER STANDARDIZED INSTRUMENT [facility]; NOT OTHERWISE SPECIFIED (NOS) [facility]; NOT OTHERWISE SPECIFIED (NOS) [facility]; NOT OTHERWISE SPECIFIED (NOS) [facility]; NOT OTHERWISE SPECIFIED (NOS) [facility] BRIEF EMOTIONAL/BEHAVIORA L ASSESSMENT (EG, DEPRESSION INVENTORY, ATTENTION-DEFICIT/H YPERACTIVITY DISORDER [ADHD] SCALE), WITH SCORING AND DOCUMENTATION, PER STANDARDIZED INSTRUMENT [facility]; NOT OTHERWISE SPECIFIED (NOS) [facility] BRIEF EMOTIONAL/BEHAVIORA L ASSESSMENT (EG, DEPRESSION INVENTORY, ATTENTION-DEFICIT/H YPERACTIVITY DISORDER [ADHD] SCALE), WITH SCORING AND DOCUMENTATION, PER STANDARDIZED INSTRUMENT [facility] WA[facility]; NOT OTHERWISE SPECIFIED (NOS) [facility]; NOT OTHERWISE SPECIFIED (NOS) [facility] PSYCHIATRIC DIAGNOSTIC EVALUATION [facility] BRIEF EMOTIONAL/BEHAVIORA L ASSESSMENT (EG, DEPRESSION INVENTORY, ATTENTION-DEFICIT/H YPERACTIVITY DISORDER [ADHD] SCALE), WITH SCORING AND DOCUMENTATION, PER STANDARDIZED INSTRUMENT [facility] THERAPEUTIC, PROPHYLACTIC, OR DIAGNOSTIC INJECTION (SPECIFY SUBSTANCE OR DRUG); SUBCUTANEOUS OR INTRAMUSCULAR [facility] FITTING OF SPECTACLES, EXCEPT FOR APHAKIA; MONOFOCAL [facility] FITTING OF SPECTACLES, EXCEPT FOR APHAKIA; MONOFOCAL [facility] SCREENING TEST OF VISUAL ACUITY, QUANTITATIVE, BILATERAL Nish Jerez Supervised Injection Intramuscular Supervised Injection Intramuscular 79119 TEE NICE [facility] Services Fitting Monofocals (Not For Aphakia) [facility] Fitting Monofocals (Not For Aphakia) 94157 014 GERBER LUNDBERG Ophthalmological Prior Patient Start Comprehensive Care Ophthalmological Prior Patient Start Comprehensive Care 51326 014 GERBER LUNDBERG Determination Of Refractive State Determination Of Refractive State 75709 014 GERBER LUNDEBRG Visual Squires Test Intermediate Examination Visual Squires Test Intermediate Examination 85971 014 GERBER LUNDBERG Visual Squires Test Intermediate Examination Visual Squires Test Intermediate Examination 69397 012 ABELARDO JULIAN [facility] Fitting Monofocals (Not For Aphakia) [facility] Fitting Monofocals (Not For Aphakia) 82701 012 ABELARDO JULIAN Ophthalmological New Patient Start Comprehensive Care Ophthalmological New Patient Start Comprehensive Care 03375 012 ABELARDO JULIAN Determination Of Refractive State Determination Of Refractive State 28935 012 ABELARDO JULIAN Ophthalmological Sensorimotor Exam Ophthalmological Sensorimotor Exam 87392 012 ABELARDO JULIAN Screening Test Of Visual Acuity, Quantitative, Bilateral Screening Test Of Visual Acuity, Quantitative, Bilateral 54465 012 GEORGE ORTA DoD Tympanometry With Reflex Threshold Measurements Tympanometry With Reflex Threshold Measurements 31140 KOFI [place] Normal ME function, Au DoD Evoked Otoacoustic Radha ions Comprehensive Evoked Otoacoustic Emissions Comprehensive 97673 KOFI [place] Abnormal Au DoD Comprehensive Audiometry Comprehensive Audiometry 99405 KO[place] PIPB Rollover speech function testing is a negative finding in the right ear DoD Audiometry Tone Decay Test Audiometry Tone Decay Test 24374 KOFI [place] Abnormal @ 2KHz & 3KHz in the right ear DoD Psychiatric Evaluation Comprehensive Examination Psychiatric Evaluation Comprehensive Examination 57707 JALYN BELLO Waiver services; not otherwise specified (NOS) DEANDRA BOURGEOIS Psychiatric Therapy Group (Interactive) Psychiatric Therapy Group (Interactive) 544[address] DEANDRA BOURGEOIS Social Work Individual Outpatient Counseling 20-30 Minutes Social Work Individual Outpatient Counseling 20-30 Minutes 57017 DEANDRA BOURGEOIS No data available for this section Ambulato ry Pharmacy Social History Combined list of available smoking, tobacco, and other social history from Department of Defense and Veterans Affairs facilities. Social History Type Response Date Comment Sourc e Tobacco smoking status NHIS VA-TOBACCO NEVER USED 10/26/19 [place] History of tobacco use VA-TOBACCO NEVER USED 09/03/2022 [place] This section is an empty soc ial [...] Plan No data available for this section 07/10/2024 Ambulatory Pharmacy Plan of Care List of future care activities from Department of Veterans Affairs facilities. Additional future care activities may be listed in the Assessment and Plan section. Date/Time Care Activity Care Activity Detail Facili ty 10/24/2024 AMBULATORY - PSYCHIATRY AMBULATORY - PSYC [facility] Functional Status Combined list of recent functional and cognitive assessments recorded at Department of Defense and Veterans Affairs (ME).VA Functional [place] Measurement (FIM) Scale: 1 = Total Assistance (Subject = 0% +), 2 = Maximal Assistance (Subject = 25% +), 3 = Moderate Assistance (Subject = 50% +), 4 = Minimal Assistance (Subject = 75% +), 5 = Supervision, 6 = Modified [place] (Device), 7 = Complete [place] (Timely, Safely). Assessment Date/Time Source Assessment Type Assessment Skill Assessment Score Assessment Details No data available for this section
== END 2024-07-10 09:51 | disposition home or self-care (01) ==
LOC: HO.BBR 09:50
PROVIDERS: PCP Nurse Practitioner; Visit Provider Internal Medicine Endocrinology, Diabetes & Metabolism
DX: D75.1 Secondary polycythemia (principal); Z79.890 Hormone replacement therapy
CPT/HCPCS: 85014; 85018; 99195

== ENCOUNTER 2024-08-14 14:46 | Outpatient (REF) | payer OTHER, SELFPAY | END 2024-08-14 14:47 | disposition home or self-care (01) | LOC: HO.BBR 14:46 | PROVIDERS: PCP Nurse Practitioner; Visit Provider Internal Medicine Endocrinology, Diabetes & Metabolism | DX: D75.1 Secondary polycythemia (principal) | CPT/HCPCS: 85014 ==